=== PATIENT | male | born 1950 | race Caucasian/White ===

== ENCOUNTER 2024-01-15 10:46 | Outpatient (CLI) | payer MEDICARE, SELFPAY ==
--- NOTE | ~2024-01-15 | CT_ITS ---
Clinical Indication: Lung mass CT Scan of the Chest with Contrast: Technique: Contiguous sections were acquired throughout the chest after intravenous administration of 75 cc of Omnipaque 350. Dose reduction technique was used on this scan by utilizing automated exposu re control and iterative reconstruction technique. The dose-length product (DLP) was 390.05 mGy-cm. Findings: There is no evidence of any significant mediastinal, hilar or axillary lymphadenopathy. There is no f illing defect in the pulmonary arterial tree to suggest pulmonary embolus. There is no evidence of ao rtic dissection or aneurysm. There is no evidence of pleural or pericardial effusion. There is spiculated somewhat masslike lesion at the left lung apex with central calcification, measur ing up to approximately 3.5 cm in maximum diameter (axial image 19), morphology suggesting apical sca rring, though neoplastic lesion not definitively excluded without prior exams. There is minimal right apical scarring. There is mild to moderate emphysema in the upper lobes. There is extensive atelecta tic change of the right middle lobe. Images through the upper abdomen reveal no abnormalities. Impression: 3.5 cm somewhat masslike lesion left lung apex, felt to most likely represent prominent/exuberant lef t apical scarring, though neoplastic lesion is not definitively excluded. Consider PET/CT or tissue s ampling for further evaluation, versus follow-up exam. Comparison with any prior CTs would be very us eful to assess for chronicity of this lesion. Extensive right middle lobe atelectasis. Mild to moderate emphysema. Reviewed, dictated and finalized at [facility]. PT DEVELOPER Impression: 3.5 cm somewhat masslike lesion left lung apex, felt to most likely represent p rominent/exuberant left apical scarring, though neoplastic lesion is not defini tively excluded. Consider PET/CT or tissue sampling for further evaluation, timothy aguila follow-up exam. Comparison with any prior CTs would be very useful to asses s for chronicity of this lesion. Extensive right middle lobe atelectasis. Mild to moderate emphysema.
[2024-01-15 11:10] LABS: Estimated Glomerular Filt Rate > 60
== END 2024-01-15 10:47 | disposition home or self-care (01) ==
PROVIDERS: PCP Family Medicine; Visit Provider Internal Medicine Hematology & Oncology
DX: R91.8 Other nonspecific abnormal finding of lung field (principal); J98.11 Atelectasis; J43.9 Emphysema, unspecified
CPT/HCPCS: 71260; Q9967

== ENCOUNTER 2024-04-22 09:49 | Outpatient (CLI) | payer MEDICARE, SELFPAY ==
--- NOTE | ~2024-04-22 | CT_ITS ---
Clinical Indication: Lung mass CT Scan of the Chest with Contrast: Technique: Contiguous sections were acquired throughout the chest after intravenous administration of 75 cc of Omnipaque 350. Dose reduction technique was used on this scan by utilizing automated exposu re control and iterative reconstruction technique. The dose-length product (DLP) was 246.52 mGy-cm. COMPARISON: 01/15/2024 Findings: There is no evidence of any significant mediastinal, hilar or axillary lymphadenopathy. There is no f illing defect in the pulmonary arterial tree to suggest pulmonary embolus. There is no evidence of ao rtic dissection or aneurysm. There is no evidence of pleural or pericardial effusion. Stable left apical scarring. There is complete right middle lobe atelectasis, similar to prior exam. Mild emphysema. Images through the upper abdomen reveal no abnormalities. Impression: Complete right middle lobe atelectasis, unchanged. Stable probable left apical scarring. Mild emphysema. Reviewed, dictated and finalized at [facility]. Impression: Complete right middle lobe atelectasis, unchanged. Stable probable left apical scarring. Mild emphysema.
[2024-04-22 10:11] LABS: Estimated Glomerular Filt Rate > 60
--- OUTSIDE RECORDS SUMMARY | 2024-04-22 11:01 | XMS_ITS | Clinical Summary ---
Author Organization [facility] Address [address] [place] [address] Care Team Providers Care Ve Teacher Name Role Phone Gisel Dumont MD Primary Care Provider Allergies No known active allergies Medications aspirin (ECOTRIN EC) 81 mg Tablet, Delayed Release (E.C.) Take 81 mg by mouth daily. Active diclofenac sodium (VOLTAREN) 75 mg Tablet, Delayed Release (E.C.) Take 75 mg by mouth 2 times daily. Active tamsulosin (FLOMAX) 0.4 mg capsule Take 0.4 mg by mouth daily at bedtime. Active montelukast (SINGULAIR) 10 mg tablet Take 10 mg by mouth daily. Active pravastatin (PRAVACHOL) 40 mg tablet Take 40 mg by mouth daily with supper. Active escitalopram oxalate (LEXAPRO) 10 mg tablet Take 10 mg by mouth daily. Active fluticasone-ume clidinium-vilan terol (Trelegy Ellipta) 200-62.5-25 mcg Disk with Device Take 1 Puff by inhalation daily. Active lisinopriL (PRINIVIL) 40 mg tablet Take 40 mg by mouth daily. Active tadalafiL (CIALIS) 20 mg tablet Take 20 mg by mouth 1 time daily as needed for Erectile Dysfunction. Active umeclidinium-vi lanteroL (Anoro Ellipta) 62.5-25 mcg/actuation Disk with Device Take by inhalation. Active cefdinir (OMNICEF) 300 mg capsule Take 1 Capsule (300 mg) by mouth every 12 hours. 14 Capsule Active Active Problems Problem Noted Date Diagnosed Date Lung nodule 10/01/2023 Hilar lymphadenopathy 10/01/2023 Encounters Date Type Department Care Team Description 04/21/2024 External Device Data ST[facility] ABSTRACTION Provider, Abstract 04/08/2024 External Device Data [facility] ABSTRACTION Provider, Abstract 03/05/2024 External Device Data [facility] ABSTRACTION Provider, Abstract 03/04/2024 External Device Data [facility] ABSTRACTION Provider, Abstract 02/27/2024 External Device Data [facility] ABSTRACTION Provider, Abstract 01/23/2024 2:45 PM SUPERVISOR NURSE Office Visit [facility] Oncology and Hematology - [place] [address] [place] [id number] Hever Denson MD Lung mass (Primary Dx) from Last 3 Months Family History Medical History Relation Name Comments Colon Cancer Brother 1 Heart Disease Brother 2 Heart Disease Father No Known Problems Mother Relation Name Status Comments Brother 1 Brother 2 Father Mother Alive Social History Tobacco Use Types Packs/Day Years Used Date Smoking Tobacco: Every Day Cigarettes 2 50.6 Started: 09/18/1973 Tobacco Cessation:Ready to Q uit: Not Asked; Counseling Given: Not Answered Alcohol Use Standard Drinks/Week Comments Yes 6 (1 standard drink = 0.6 oz pur e alcohol) everyday Sex and Gender Information Value Date Recorded Sex Assigned at Not on file Legal Sex Male 9:06 AM CDT Gender Identity Not on file Sexual Orientation Not on file Last Filed Vital Signs Vital Sign Reading Time Taken Comments Blood Pressure 152/90 01/23/2024 2:54 PM SUPERVISOR NURSE Checked bp manually Pulse 90 01/23/2024 2:43 PM SUPERVISOR NURSE Temperature 36.8 C (98.2 F) 01/23/2024 2:43 PM SUPERVISOR NURSE Respiratory Rate 16 01/23/2024 2:4 3 PM SUPERVISOR NURSE Oxygen Saturation 95% 01/23/2024 2:4 3 PM SUPERVISOR NURSE Inhaled Oxygen Concentration - - Weight 83.1 kg (183 lb 3.2 oz) 01/23/2024 2:43 PM SUPERVISOR NURSE Height 170.2 cm (5' 7 ) 10/01/2023 1:25 PM CDT Body Mass Index 28.69 10/01/2023 1:25 PM CDT Plan of Treatment Upcoming Encounters Date Type Department Care Team (Late st Contact Info) Description 05/05/2024 2:00 PM CDT Office Visit [facility] Oncology [facility]ology - [place] [address] [facility] [address] [place] [address] Hever Denson MD [address] [facility] [address] [place] [address] Health Maintenance Due Date Last Done Comments DTAP/TDAP/TD VACCINES (1 - Tdap) 12/04/1970 PNEUMOCOCCAL VACCINE 50+ YEARS (1 of 2 - PCV) 12/04/18 71 COLORECTAL SCREENING 12/04/1996 Colorectal Cancer Screening 12/04/1996 FIT-DNA Q 3 years 12/04/1996 FIT/FOBT Q 1 year 12/04/1996 Flex Sig/CT Colonography Q 5 years 12/04/1996 ZOSTER VACCINE (1 of 2) 12/04/2001 INFLUENZA VACCINE (#1) 2023 Lung Cancer Screening 02/23/2024 02/22/2023 RSV VACCINE (60+ or ) (1 - 1-dose 75+ series) 12/04/2026 Abdominal Aortic Aneurysm (AAA) Screening Completed 02/22/2023 Insurance Care Teams Ve Teacher Relationship Specialty Start Date End Date Gisel Dumont MD [address] [facility] [place] [address] PCP - General Family Practice 09/19/23
--- OUTSIDE RECORDS SUMMARY | 2024-04-22 11:01 | XMS_ITS | Encounter Summary ---
Author Organization [facility] Address [address] [place] [id number] Care Team Providers Care Bar Gauger And Lubricator Tender Name Role Phone Zander Knox MD Primary Care Provider [phone] Gisel Dumont MD Primary Care Provider Reason for Visit * Reason Comments Operative Report (SCAN) [facility] REPORT/PROCEDURE Encounter Details Date Type Department Care Team ([facility] Contact Info) Description 01/29/2018 Scan HEALTH INFO [facility] Scanned, Documents Operative Report (SCAN) ([facility] REPORT/PROCEDURE) Social History Tobacco Use Types Packs/Day Years Used Date Smoking Tobacco: Every Day Cigarettes 1.5 46 Smokeless Tobacco: Never Alcohol Use Standard Drinks/Week Comments No 0 (1 standard drink = 0.6 oz pur e alcohol) AUDIT-C Answer Date Recorded Frequency of Alcohol Consumption Never 01/15/2018 Average Number of Drinks Not on file 018 Frequency of Binge Drinking Not on file 05/2017 Sex and Gender Information Value Date Recorded Sex Assigned at Male 03/27/2024 1:31 PM PORTAL ADMINISTRATOR Legal Sex Male 7:51 AM CDT Gender Identity Not on file Sexual Orientation Straight 08/24/2023 1: 05 PM CDT documented as of this encounter Plan of Treatment Not on file documented as of this encounter Visit Diagnoses Not on filedocumented in this encounter Additional Health Concerns Infection Onset Date Last Indicated Resolved Time COVID-19 Rule Out 03/27/2024 03/27/2024 03/27/2024 2:25 PM PORTAL ADMINISTRATOR documented as of this encounter Care Teams Bar Gauger And Lubricator Tender Relationship Specialty Start Date End Date Zander Knox MD PCP - General EMERGENCY MEDICINE 01/15/18 10/13/20 Gisel Dumont MD [address] [place] [address] PCP - General FAMILY PRACTICE 11/03/20 documented as of this encounter
--- OUTSIDE RECORDS SUMMARY | 2024-04-22 11:01 | XMS_ITS | Encounter Summary ---
Author Organization [facility] Address [address] [place] [address] Care Team Providers Care Tooling Mechanic Name Role Phone Gisel Dumont MD Primary Care Provider Encounter Details Date Type Department Care Team (Late st Contact Info) Description 04/21/2024 External Device Data [facility] ABSTRACTION Provider, Abstract NO ADDRESS ON FILE Social History Tobacco Use Types Packs/Day Years Used Date Smoking Tobacco: Every Day Cigarettes 2 50.6 Started: 09/18/1973 Alcohol Use Standard Drinks/Week Comments Yes 6 (1 standard drink = 0.6 oz pur e alcohol) everyday Sex and Gender Information Value Date Recorded Sex Assigned at Not on file Legal Sex Male 9:06 AM CDT Gender Identity Not on file Sexual Orientation Not on file documented as of this encounter Plan of Treatment Upcoming Encounters Date Type Department Care Team (Late st Contact Info) Description 05/05/2024 2:00 PM CDT Office Visit [facility] Oncology and Hematology - [place] [address] [facility] [address] [place] [address] [place] [address] [place] [address] [address] [place] [address] documented as of this encounter Visit Diagnoses Not on filedocumented in this encounter Care Teams Tooling Mechanic Relationship Specialty Start Date End Date Gisel Dumont MD [address] [place] [id number] PCP - General Family Practice 09/19/23 documented as of this encounter
--- OUTSIDE RECORDS SUMMARY | 2024-04-22 11:01 | XMS_ITS | Clinical Summary ---
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 12/20/19 18 Active aspirin EC (ECOTRIN) 81 MG tablet Take 1 tablet (81 mg total) by mouth daily. Active multi vitamin/minera ls (THERA-M ENHANCED) tablet Take 1 tablet by mouth daily. Active oxybutynin XL (DITROPAN XL) 15 MG 24 hr tablet Take 1 tablet (15 mg total) by mouth daily. Active diclofenac EC (VOLTAREN) 75 MG tablet Take 1 tablet (75 mg total) by mouth 2 (two) times daily. Active montelukast (SINGULAIR) 10 MG tablet Take 1 tablet (10 mg total) by mouth nightly at bedtime. Active tamsulosin (FLOMAX) 0.4 MG Cap Take 1 capsule (0.4 mg total) by mouth nightly. Active melatonin 5 MG tablet Take 1 tablet (5 mg total) by mouth nightly as needed. Active busPIRone (BUSPAR) 10 MG tablet Take 1 tablet (10 mg total) by mouth 3 (three) times daily. 09/21/19 24 Active escitalopram (LEXAPRO) 10 MG tablet Take 1 tablet (10 mg total) by mouth daily. 09/17/19 24 Active pravastatin (PRAVACHOL) 40 MG tablet Take 1 tablet (40 mg total) by mouth nightly at bedtime. 09/04/19 24 Active azithromycin (ZITHROMAX) 500 mg tablet Take 1 tablet (500 mg total) by mouth daily. 1 tablet 04/01/19 25 Active chlorthalidone (HYGROTEN) 25 MG tablet Take 0.5 tablets (12.5 mg total) by mouth daily. 30 tablet 1 04/01/19 25 Active budesonide-for moterol (SYMBICORT) 160-4.5 MCG/ACT inhaler Inhale 2 puffs into the lungs 2 (two) times daily. 10.2 g 3 03/31/19 25 Active pravastatin 20 MG tablet nightly at bedtime. 10/25/19 18 025 Discontinued(Er ror) budesonide-for moterol 160-4.5 MCG/ACT inhaler Inhale 2 puffs into the lungs 2 (two) times daily. 025 Discontinued(Er ror) ANORO ELLIPTA 62.5-25 MCG/ACT inhaler 07/30/19 24 025 Discontinued(Er ror) cefdinir (OMNICEF) 300 MG Cap capsule Take 1 capsule (300 mg total) by mouth 2 (two) times daily for 1 day. 2 capsule 04/01/19 25 025 predniSONE (DELTASONE) 20 MG tablet Take 2 tablets (40 mg total) by mouth daily for 3 days, THEN 1 tablet (20 mg total) daily for 3 days, THEN 0.5 tablets (10 mg total) daily for 3 days. 11 tablet 03/31/19 25 025 Discontinued predniSONE (DELTASONE) 20 MG tablet Take 2 tablets (40 mg total) by mouth daily for 3 days, THEN 1 tablet (20 mg total) daily for 3 days, THEN 0.5 tablets (10 mg total) daily for 3 days. 11 tablet 04/01/19 25 025 Active Problems Problem Noted Date Diagnosed Date CAP (community acquired pneumonia) 03/27/2024 Hx of colonic polyp 09/07/2022 Overview (09/07/2022): Added automatically from request for surgery [id number] Family hx of colon cancer 09/07/2022 Overview (09/07/2022): Added automatically from request for surgery [id number] Screening for colon cancer 09/07/2022 Overview (09/07/2022): Added automatically from request for surgery [id number] Hyponatremia 10/16/2020 Encounters Date Type Department Care Team Description 03/27/2024 1:34 PM [facility] - 03/31/2024 12:37 PM [facility] Hospital Encounter [facility] [address] [place] [address] Rupert Smith MD Sahi, Yuliana Tobin MD Shortness Of Breath Discharge Disposition: Home or Self Care (Routine Discharge) 03/27/2024 Travel from Last 3 Months Family History Medical History Relation Comments Colon Cancer Brother Heart Disease Father Relation Status Comments Brother Father Social History Tobacco Use Types Packs/Day Years Used Date Smoking Tobacco: Every Day Cigarettes 2 46 Smokeless Tobacco: Never Alcohol Use Standard Drinks/Week Comments Yes 58.3 (1 standard drink = 0.6 oz pure alcohol) B1300 Health Literacy Answer Date Recor ded How often do you need to hav e someone help you when you read instructions, pamphlets, or other written material from your doctor or pharmacy? Rarely 03/27/2024 [facility] Utilities Answer Date Recorded In the past 12 months has e [employer], gas, oil, or water [employer] threatened to shut off services in your home? No 03/27/2024 Humiliation, Afraid, Rape, and Kick questionnair e Answer Date Recorded Within the last year, have y ou been afraid of your partner or ex-partner? No 03/27/2024 Within the last year, have y ou been humiliated or emotionally abused in other ways by your partner or ex-partner? No Within the last year, have y ou been kicked, hit, slapped, or otherwise physically hurt by your partner or ex-partner? No 03/27/2024 Within the last year, have y ou been raped or forced to have any kind of sexual activity by your partner or ex-partner? No 03/27/2024 Social Connection and Isolation Panel [NHANES] A nswer Date Recorded In a typical week, how many times do you talk on the phone with family, friends, or neighbors? Once a week 03/27/19 How often do you get togethe r with friends or relatives? Once a week 03/27/2024 How often do you attend chur ch or latter-day services? 1 to 4 times per year 03/27/2024 Do you belong to any clubs o r organizations such as jehovah's witness groups, unions, fraternal or athletic groups, or school groups? No 03/27/2024 How often do you attend meet ings of the clubs or organizations you belong to? 1 to 4 times per year 03/27/2024 Are you , , di vorced, , never , or living with a partner? Living with partner 03/27/2024 AUDIT-C Answer Date Recorded Q1: How often do you have a drink containing alcohol? 4 or more times a week 03/27/2024 Q2: How many drinks containi ng alcohol do you have on a typical day when you are drinking? 5 or 6 Q3: How often do you have si x or more drinks on one occasion? Daily or almost daily 03/27/2024 Overall Financial Resource Strain (CARDIA) Answe r Date Recorded How hard is it for you to pa y for the very basics like food, housing, medical care, and heating? Not hard at all 03/27/2024 [facility] Occupat ional Health - Occupational Stress Questionnaire Answer Date Recorded Do you feel stress - tense, restless, nervous, or anxious, or unable to sleep at night because your mind is troubled all the time - these days? Only a little 03/27/2024 Hunger Vital Sign Answer Date Recorded Within the past 12 months, y ou worried that your food would run out before you got the money to buy more. Never true 03/27/19 25 Within the past 12 months, t he food you bought just didn't last and you didn't have money to get more. Never true 03/27/2024 PRAPARE - Transportation Answer Date Re corded In the past 12 months, has l ack of transportation kept you from medical appointments or from getting medications? No 03/15 In the past 12 months, has l ack of transportation kept you from meetings, work, or from getting things needed for daily living? No 03/27/2024 Housing Stability Vital Sign Answer Edil e Recorded In the last 12 months, was t here a time when you were not able to pay the mortgage or rent on time? No 03/27/2024 In the past 12 months, how m any times have you moved where you were living? 0 03/27/2024 At any time in the past 12 m [facility], were you homeless or living in a correction (including now)? No 03/27/2024 Sex and Gender Information Value Date Recorded Sex Assigned at Male 03/27/2024 1:31 PM [facility] Legal Sex Male 7:51 AM CDT Gender Identity Not on file Sexual Orientation Straight 08/24/2023 1: 05 PM CDT Last Filed Vital Signs Vital Sign Reading Time Taken Comments Blood Pressure 160/80 03/31/2024 12:00 PM [facility] Pulse 78 03/31/2024 12:00 PM [facility] Temperature 36.3 C (97.3 F) 03/31/2024 12:00 PM [facility] Respiratory Rate 16 03/31/2024 12:0 0 PM [facility] Oxygen Saturation 95% 03/31/2024 12: 00 PM [facility] Inhaled Oxygen Concentration - - Weight 85.2 kg (187 lb 13.3 oz) 03/27/2024 1:37 PM [facility] Height 170.2 cm (5' 7 ) 03/27/2024 1:37 PM [facility] Body Mass Index 29.42 03/27/2024 1:37 PM [facility] Plan of Treatment Health Maintenance Due Date Last Done Comments DTaP, Tdap and Td Vaccines (1 - Tdap) 12/04/1970 RSV Immunization or 60+ Years (1 - Risk 60-74 years 1-dose series) 2011 Annual Medicare Wellness Visit 12/04/2016 Pneumococcal Vaccine: 65+ Years (2 of 2 - PPSV23 or PCV20) 02/22/2017 12/28/2016 COVID-19 Vaccine (3 - season) 2023 04/10/2020, 03/13/2020 Influenza Adult (#1) 2023 11/21/2019, 12/08/2014, 12/02/2013, Additional history exists PHQ-2 (Physician [place]) 02/13/2024 Lung Cancer Screening 08/20/2024 08/21/2023, 024 Colorectal Cancer Screening Colonoscopy (10 Years) 10/31/2032 10/31/2022 Zoster Vaccines Completed 11/07/2018, 08/26/2018 Hepatitis C Completed 10/18/2020, 03/07/2013 AAA SCREENING Completed 01/15/2024, 08/13, 08/21/2023, Additional history exists Meningococcal B Vaccine Aged Out No l onger eligible based on patient's age to complete this topic Meningococcal Vaccine Aged Out No yunior barb eligible based on patient's age to complete this topic RSV Immunizations Under 20 Months Aged Out No longer eligible based on patient's age to complete this topic Procedures Procedure Name Priority Date/Time Associated Diagnosis Comments POCT GLUCOSE - PIRES DOCKED DEVICE Routine 03/31/2024 11:37 AM [facility] POCT GLUCOSE - PIRES DOCKED DEVICE Routine 03/31/2024 8:47 AM [facility] CBC W/DIFF AUTOMATED STAT 03/31/2024 8:21 AM [facility] POCT GLUCOSE - PIRES DOCKED DEVICE Routine 03/30/2024 8:14 PM [facility] POCT GLUCOSE - PIRES DOCKED DEVICE Routine 03/30/2024 4:48 PM [facility] POCT GLUCOSE - PIRES DOCKED DEVICE Routine 03/30/2024 10:40 AM [facility] MAGNESIUM Routine 03/30/2024 4:15 AM [facility] BASIC METABOLIC PANEL Routine 03/30/2024 4:15 AM [facility] CBC W/DIFF AUTOMATED Routine 03/30/2024 4:15 AM [facility] MAGNESIUM Routine 03/29/2024 4:05 AM [facility] BASIC METABOLIC PANEL Routine 03/29/2024 4:05 AM [facility] CBC W/DIFF AUTOMATED Routine 03/29/2024 4:05 AM [facility] VANCOMYCIN Routine 03/28/2024 6:30 AM [facility] MAGNESIUM Routine 03/28/2024 6:30 AM [facility] BASIC METABOLIC PANEL Routine 03/28/2024 6:30 AM [facility] CBC W/DIFF AUTOMATED Routine 03/28/2024 6:30 AM [facility] MRSA SCREENING STAT 03/27/2024 4:30 PM [facility] C-REACTIVE PROTEIN STAT 03/27/2024 4: 00 PM [facility] CTA CHEST PE PROTOCOL STAT 03/27/2024 3:37 PM [facility] LACTIC ACID TIMED 03/27/2024 2:53 PM [facility] CULTURE, BACTERIA, BLOOD STAT 03/27/2024 2:52 PM [facility] XR CHEST PA+LAT STAT 03/27/2024 2:13 PM [facility] ECG 12-LEAD Routine 03/27/2024 1:43 PM [facility] CORONAVIRUS (COVID 19) STAT 1:43 PM [facility] RESP SYNCYTIAL VIRUS STAT 03/27/2024 1:43 PM [facility] INFLUENZA A & B STAT 03/27/2024 1:43 PM [facility] MAGNESIUM STAT 03/27/2024 1:43 PM [facility] PRO-BRAIN NATRIURETIC PEPTIDE STAT 03/27/2024 1:43 PM [facility] TROPONIN, QUANT STAT 03/27/2024 1:43 PM [facility] COMPREHENSIVE METABOLIC PANEL STAT 03/27/2024 1:43 PM [facility] D-DIMER, QUANTITATIVE STAT 03/27/2024 1:43 PM [facility] CBC W/DIFF AUTOMATED STAT 03/27/2024 1:43 PM [facility] PET EYE TO THIGH [id number] STAT 09/04/2023 3:30 PM CDT Screening for lung cancer Lesion of lung CT CHEST WO CONT LOW DOSE Routine 08/21/2023 9:[address] lung screening Pulmonary nodule Tobacco use HEPATITIS PANEL,ACUTE Routine 10/18/2020 6:01 AM CDT from Last 3 Months or Most Recently Relevant to Health Maintenance Results * (ABNORMAL) POCT glucose (03/31/2024 11:37 AM [facility]) Only the most recent of5 resultswithin the time period is included. Pathologist [facility] GLUCOSE POC 252(H) 70 - 99 MG/DL 03/31/2024 11:38 AM [facility] 03/31/2024 11:3 7 AM [facility] us Yuliana Deluca MD POCT ORDERABLES - DEVICE Dede bernabe Result [address] [place] [address], * (ABNORMAL) CBC W/DIFF AUTOMATED (03/31/2024 8:21 AM [facility]) Only the most recent of5 resultswithin the time period is included. [facility] WBC 17.16(H) 4.50 - 11.00 x10'3/uL 03/31/2024 8:26 AM [facility] RBC 4.96 4.50 - 5.90 x10'6/uL 03/31/2024 8:26 AM [facility] HGB 16.1 14.0 - 18.0 G/DL 03/31/2024 8:26 AM [facility] HCT 46.6 43.0 - 54.0 % 03/31/2024 8:26 AM [facility] MCV 94.0 80.0 - 100.0 FL 03/31/2024 8:26 AM [facility] MCH 32.5 26.0 - 34.0 PG 03/31/2024 8:26 AM [facility] MCHC 34.5 31.0 - 37.0 G/DL 03/31/2024 8:26 AM [facility] RDW 12.6 11.6 - 14.8 % 03/31/2024 8:26 AM [facility] PLT 377 130 - 400 x10'3/uL 03/31/2024 8:26 AM [facility] MPV 9.2 7.0 - 12.0 FL 03/31/2024 8:26 AM [facility] CBC COMMENT AUTOMATED RBC MORPHOLOGY AND PLATELET EVALUATION NORMAL 03/31/2024 8:26 AM [facility] NEUTROPHILS % 88.2(H) 40.0 - 74.0 % 03/31/2024 8:26 AM [facility] LYMPHOCYTES % 5.7(L) 14.0 - 46.0 % 03/31/2024 8:26 AM [facility] MONOCYTES % 3.7(L) 4.0 - 13.0 % 03/31/2024 8:26 AM [facility] EOSINOPHILS 0.2 0.0 - 7.0 % 03/31/2024 8:26 AM [facility] BASOPHILS 0.3 0.0 - 3.0 % 03/31/2024 8:26 AM [facility] IMMATURE GRANS % 1.9(H) 0.0 - 0.43 % 03/31/2024 8:26 AM [facility] NRBC % 0.0 % 03/31/2024 8:26 AM [facility] ABS. NEUTROPHILS TOTAL 15.13(H) 1.69 - 7.81 x10'3/uL 03/31/2024 8:26 AM [facility] ABS. LYMPHOCYTES 0.97 0.21 - 5.42 x10'3/uL 03/31/2024 8:26 AM [facility] ABS. MONOCYTES 0.64 0.04 - 1.37 x10'3/uL 03/31/2024 8:26 AM [facility] ABS. EOSINOPHILS 0.03 0.00 - 0.68 x10'3/uL 03/31/2024 8:26 AM [facility] ABS. BASOPHILS 0.06 0.00 - 0.08 x10'3/uL 03/31/2024 8:26 AM [facility] ABS. IMMATURE GRANULOCYTES 0.33(H) 0.00 - 0.06 x10'3/uL 03/31/2024 8:26 AM [facility] ABS. NUCLEATED RBC'S 0.00 0.00 - 0.01 x10'3/uL 03/31/2024 8:26 AM [facility] 03/31/2024 8:21 AM [facility] us Yuliana Deluca MD LABORATORY Final Result [address] [place] [address], * (ABNORMAL) BASIC METABOLIC PANEL (03/30/2024 4:15 AM [facility]) Only the most recent of3 resultswithin the time period is included. GLUCOSE 213(H) 70 - 99 MG/DL 03/30/2024 4:58 AM [facility] BUN 7 7 - 18 MG/DL 03/30/2024 4:58 AM [facility] CREATININE S/P/B 0.78 0.50 - 1.20 MG/DL 03/30/2024 4:58 AM [facility] SODIUM S/P/B 141 136 - 145 MMOL/L 03/30/2024 4:58 AM [facility] POTASSIUM S/P/B 3.8 3.5 - 5.1 MMOL/L 03/30/2024 4:58 AM [facility] CHLORIDE S/P/B 103 100 - 108 MMOL/L 03/30/2024 4:58 AM [facility] CO2 30.2 21.0 - 32.0 MMOL/L 03/30/2024 4:58 AM [facility] CALCIUM S/P/B 9.5 8.5 - 10.1 MG/DL 03/30/2024 4:58 AM [facility] ANION GAP 7.8 5.0 - 15.0 MMOL/L 03/30/2024 4:58 AM [facility] BUN CREATININE RATIO 9.0 6 - 26 03/30/2024 4:58 AM [facility] GFR ESTIMATE >90 >90 ML/MIN/1.7 3 M2 03/30/2024 4:58 AM [facility] Comment: NOTE: eGFR is not calculated for patients <18 years of age. This is an estimated GFR calculation using the new CKD EPI creatinine equation without race and so does not require a correction factor for race. This estimated GFR should not be used for calculating drug doses. 03/30/2024 4:15 AM [facility] us Yuliana Deluca MD LABORATORY Final Result [facility] [address] [place] [address], * MAGNESIUM (03/30/2024 4:15 AM [facility]) Only the most recent of4 resultswithin the time period is included. MAGNESIUM 2.4 1.8 - 2.4 MG/DL 03/30/2024 4:58 AM [facility] 03/30/2024 4:15 AM [facility] Yuliana Deluca MD LABORATORY Final Result [facility] [address] [place] [address], [place] * VANCOMYCIN RANDOM LEVEL (03/28/2024 6:30 AM [facility]) Pathologist [facility] VANCOMYCIN RANDOM 6.3 MCG/ML 03/28/2024 9:00 AM [facility] Comment:NO THERAPEUTIC RANGE AVAILABLE 03/28/2024 6:30 AM [facility] Yuliana Deluca MD LABORATORY Final Result Performing Organization Address [facility]/ZIP Co de Phone Number [facility] [address] [place] [address], [place] [phone] * MRSA SCREENING (03/27/2024 4:30 PM [facility]) [facility] SPEC DESCRIPTION NASAL 03/27/2024 4:30 PM [facility] SPECIAL REQUESTS NO SPECIAL REQUEST 03/27/2024 4:30 PM [facility] CULTURE RESULT NO METHICILLIN RESISTANT STAPHYLOCOCCUS AUREUS ISOLATED 03/28/2024 12:52 PM [facility] SPECIMEN FROM INTERNAL NOSE / Unknown 03/27/2024 4:30 PM [facility] 03/27/2024 4:34 PM [facility] Yuliana Deluca MD MICROBIOLOGY - GENERAL ORDERA BLES Final Result [facility] [address] [place] [address], [place] [phone] [facility] [address] [place] [address], [place] * (ABNORMAL) C-REACTIVE PROTEIN (03/27/2024 4:00 PM [facility]) C-REACTIVE PROTEIN 10.50(H) <0.29 mg/dL 03/28/2024 11:44 AM [facility] 03/27/2024 4:00 PM [facility] Rupert Smith MD LABORATORY Final Resul t [facility] [address] [place] [address], [place] [phone] * CTA CHEST PE PROTOCOL (03/27/2024 3:37 PM [facility]) Anatomical Region Laterality Modality Chest Computed Tomogra phy 03/27/2024 3:49 PM [facility] Impressions 03/27/2024 4:10 PM [facility] IMPRESSION: 1. No evidence of acute pulmonary embolism.. 2. Moderate peribronchial wall thickening may be due to moderate bronchitis versus reactive airway disease. 3. Bilateral small scattered patchy infiltrates. Please see above details. Scattered tree-in-bud type infiltrates also present. May be due to atypical infectious process. 4. Stable spiculated left lung apex mass. Had increased uptake on above-stated prior PET scan.. 5. Probable reactive mediastinal and hilar lymph nodes.. 6. Pulmonary nodules as above. Ordered By: RUPERT SMITH Interpreted By: Sindy Glover, 03/27/2024 3:49 PM Narrative 03/27/2024 4:10 PM [facility] [address] [place] [address] EXAMINATION: CTA CHEST WITH CONTRAST EXAM DATE/TIME: 03/27/2024 3:31 PM REASON FOR EXAM: rule out pe Shortness of breath and fever. COPD. Elevated d-dimer. COMPARISON: 08/21/2023 TECHNIQUE: Computed tomography angiography was performed of the chest after administration of intravenous contrast, 95 mL of Isovue-370, according to routine protocol. Additional 3-D reconstructions and postprocessing were performed independently by the attending radiologist and a separate dedicated 3-D workstation. A dose lowering technique was used for this procedure, which may include, but is not limited to, dose reduction technique, automated exposure control, iterative reconstruction, ALARA (As Low As Reasonably Achievable), or Image Gently techniques. FINDINGS: VASCULAR FINDINGS: Adequate opacification of the pulmonary arteries. No evidence of acute pulmonary embolism.. Atherosclerotic aorta without dilatation or dissection.. Moderate coronary artery calcifications. Please correlate with cardiac risk profile. NONVASCULAR FINDINGS: On lung windows, there is similar collapse of the right middle lobe with underlying scar. Trace left-sided pleural effusion. No pneumothorax. Moderate peribronchial wall mucosal thickening may be due to moderate bronchitis versus reactive airway disease. Small scattered patchy infiltrates. Most prominent in left lower lobe. Present to a lesser degree within the right lower lobe and left upper lobe. Scattered tree-in-bud type infiltrates also noted. May be due to atypical infectious process. These are new since prior exam. Stable appearance of less than 5 mm left lung base nodules on image 76, 77 and 89. On series 16. Triangular nodule versus scar in right lung base is stable on image 83.. Follow-up in 6 months. Stable spiculated left lung apex lesion. Similar measurement of 3.7 x 2.3 cm. This had increased uptake on prior PET scan of 09/04/2023. On soft tissue windows, no axillary or supraclavicular lymphadenopathy. On mediastinal windows, no evidence of pathologic hilar or mediastinal lymphadenopathy. Heart size normal. No pericardial effusion. Nonpathologic sized mediastinal lymph nodes. Matted hilar adenopathy, slightly greater on the left side. Most likely reactive from patient's inflammatory process. Limited evaluation of the upper abdomen demonstrates no acute abnormality. On bone windows, no suspicious skeletal lesion or acute compression fracture deformity. Procedure Note Juan Glover MD - 03/27/[address] [place] [address] EXAMINATION: CTA CHEST WITH CONTRAST EXAM DATE/TIME: 03/27/2024 3:31 PM REASON FOR EXAM: rule out pe Shortness of breath and fever. COPD. Elevated d-dimer. COMPARISON: 08/21/2023 TECHNIQUE: Computed tomography angiography was performed of the chestafter administration of intravenous contrast, 95 mL of Isovue-370,according to routine protocol. Additional 3-D reconstructions andpostprocessing were performed independently by the attending radiologistand a separate dedicated 3-D workstation. A dose lowering technique was used for this procedure, which may include,but is not limited to, dose reduction technique, automated exposurecontrol, iterative reconstruction, ALARA (As Low As ReasonablyAchievable), or Image Gently techniques. FINDINGS: VASCULAR FINDINGS: Adequate opacification of the pulmonary arteries. No evidence of acutepulmonary embolism.. Atherosclerotic aorta without dilatation or dissection.. Moderate coronary artery calcifications. Please correlate with cardiacrisk profile. NONVASCULAR FINDINGS: On lung windows, there is similar collapse of the right middle lobe withunderlying scar. Trace left-sided pleural effusion. No pneumothorax. Moderate peribronchial wall mucosal thickening may be due to moderatebronchitis versus reactive airway disease. Small scattered patchy infiltrates. Most prominent in left lower lobe.Present to a lesser degree within the right lower lobe and left upperlobe. Scattered tree-in-bud type infiltrates also noted. May be due toatypical infectious process. These are new since prior exam. Stable appearance of less than 5 mm left lung base nodules on image 76, 77and 89. On series 16. Triangular nodule versus scar in right lung base isstable on image 83.. Follow-up in 6 months. Stable spiculated left lung apex lesion. Similar measurement of 3.7 x 2.3cm. This had increased uptake on prior PET scan of 09/04/2023. On soft tissue windows, no axillary or supraclavicular lymphadenopathy. On mediastinal windows, no evidence of pathologic hilar or mediastinallymphadenopathy. Heart size normal. No pericardial effusion. Nonpathologicsized mediastinal lymph nodes. Matted hilar adenopathy, slightly greateron the left side. Most likely reactive from patient's inflammatoryprocess. Limited evaluation of the upper abdomen demonstrates no acuteabnormality. On bone windows, no suspicious skeletal lesion or acute compressionfracture deformity. IMPRESSION: 1. No evidence of acute pulmonary embolism.. 2. Moderate peribronchial wall thickening may be due to moderatebronchitis versus reactive airway disease. 3. Bilateral small scattered patchy infiltrates. Please see abovedetails. Scattered tree-in-bud type infiltrates also present. May be dueto atypical infectious process. 4. Stable spiculated left lung apex mass. Had increased uptake onabove-stated prior PET scan.. 5. Probable reactive mediastinal and hilar lymph nodes.. 6. Pulmonary nodules as above. Ordered By: RUPERT SMITH Interpreted By: Sindy Glover, 03/27/2024 3:49 PM Rupert Smith MD CT Final Resul t * (ABNORMAL) LACTIC ACID (03/27/2024 2:53 PM [facility]) [facility] LACTIC ACID VENOUS 2.1(HH) 0.5 - 2.0 MMOL/L 03/27/2024 4:09 PM [facility] Comment: AN ORDER FOR A REPEAT LACTIC ACID TEST IS REQUIRED WITHIN 6 HOURS OF DIAGNOSIS ON A PATIENT WITH SEVERE SEPSIS. CRITICAL VALUE CALLED RESULT [id number] 03/27/2024 2:53 PM [facility] Rupert Smith MD LABORATORY Final Resul t Performing Organization Address [facility]/ZIP Co de Phone Number [address] [place] [address], [place] * BLOOD CULTURE #1 (03/27/2024 2:52 PM [facility]) [facility] SPEC DESCRIPTION BLOOD 03/27/2024 2:52 PM [facility] SPECIAL REQUESTS NO SPECIAL REQUEST 03/27/2024 2:52 PM [facility] CULTURE RESULT NO GROWTH 5 DAYS 04/01/2024 6:29 AM [facility] BLOOD SPECIMEN OBTAINED FOR BLOOD CULTURE / Unknown 03/27/2024 2:52 PM [facility] 03/27/2024 3:27 PM [facility] Rupert Smith MD MICROBIOLOGY - GENERAL ORDHong [facility] Final Result [facility] [address] [place] [address], [place] [phone] [facility] [address] [facility] [place] [address], [place] * XR CHEST PA+LAT (03/27/2024 2:13 PM [facility]) Anatomical Region Laterality Modality Chest Computed Tomogra phy 03/27/2024 2:13 PM [facility] Impressions 03/27/2024 2:15 PM [facility] IMPRESSION: 1. Mild bilateral bronchial wall thickening, which can be seen with small airway infection/inflammation or reactive airway disease. 2. There are patchy left basilar airspace opacities which represent areas of atelectasis or pneumonia in appropriate setting. A follow-up chest radiograph in 8-12 weeks is recommended to ensure complete resolution. 3. No pneumothorax. Ordered By: RUPERT SMITH Interpreted By: Jackie Gann MD, 03/27/2024 2:13 PM Narrative 03/27/2024 2:15 PM [facility] [address] [place] [address] PROCEDURE: XR CHEST PA+LAT. 03/27/2024 1:58 PM. TECHNIQUE: 2 views (PA and Lateral) of the chest were performed. HISTORY: Cough. Shortness of breath. COMPARISON: Chest radiograph, 10/21/2020. FINDINGS: Support Devices: None. Cardiac Silhouette/Mediastinum/Radha: The cardiac, mediastinal, and hilar contours are within normal limits for age. Lungs/Pleural Spaces: Wall thickening. There are patchy left basilar airspace opacities. The pleural spaces are clear. Chest Wall/Diaphragm/Upper Abdomen: The thoracic musculoskeletal structures and the upper abdomen are unchanged in appearance. Procedure Note Jackie Gann MD - 03/27/[address] [place] [address] PROCEDURE: XR CHEST PA+LAT. 03/27/2024 1:58 PM. TECHNIQUE: 2 views (PA and Lateral) of the chest were performed. HISTORY: Cough. Shortness of breath. COMPARISON: Chest radiograph, 10/21/2020. FINDINGS: Support Devices: None. Cardiac Silhouette/Mediastinum/Radha: The cardiac, mediastinal, and hilarcontours are within normal limits for age. Lungs/Pleural Spaces: Wall thickening. There are patchy left basilarairspace opacities. The pleural spaces are clear. Chest Wall/Diaphragm/Upper Abdomen: The thoracic musculoskeletalstructures and the upper abdomen are unchanged in appearance. IMPRESSION: 1. Mild bilateral bronchial wall thickening, which can be seen with smallairway infection/inflammation or reactive airway disease. 2. There are patchy left basilar airspace opacities which represent areasof atelectasis or pneumonia in appropriate setting. A follow-up chestradiograph in 8-12 weeks is recommended to ensure complete resolution. 3. No pneumothorax. Ordered By: RUPERT SMITH Interpreted By: Jackie Gann MD, 03/27/2024 2:13 PM us Rupert Smith MD GENERAL IMAGING Final Resul t * ECG 12 lead (03/27/2024 1:43 PM [facility]) 03/27/2024 1:43 PM [facility] Narrative [facility] - 03/27/2024 2:34 PM [facility] HFG Test Date: 2024-03-27 Pat Name: JOSE DE JESUS CASIANO Department: 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 : 1950 Requested By: RUPERT SMITH Order Number: [id number] Reading MD: Tang Friend Measurements Intervals [place] Rate: 122 P: -1 IA: 148 QRS: 75 QRSD: 93 T: 66 QT: 323 QTc: 461 Interpretive Statements SINUS TACHYCARDIA MINIMAL ST DEPRESSION [0.025+ mV ST DEPRESSION] ABNORMAL RHYTHM ECG [facility] Procedure Note Tang Friend MD - 03/27/2024 HFG Test Date: 2024-03-27 Pat Name: JOSE DE JESUS CASIANO Department: 100 Room: Gender: Male Clearing Supervisor: MYKEL : 1950 Requested By: RUPERT SMITH Order Number: [id number] Reading MD: Tang Friend Measurements Intervals [place] Rate: 122 P: -1 IA: 148 QRS: 75 QRSD: 93 T: 66 QT: 323 QTc: 461 Interpretive Statements SINUS TACHYCARDIA MINIMAL ST DEPRESSION [0.025+ mV ST DEPRESSION] ABNORMAL RHYTHM ECG [facility] Rupert Smith MD ECG ORDERABLES Final Resul t Performing Organization Address City/[facility]/ZIP Co de Phone Number [address] [place] [address] * CORONAVIRUS (COVID 19) (03/27/2024 1:43 PM [facility]) CORONAVIRUS SARS COV 2 RNA NEGATIVE NEGATIVE 03/27/2024 2:24 PM [facility] Comment: NEGATIVE RESULTS DO NOT RULE OUT COVID 19 AND SHOULD NOT BE USED THE SOLE BASIS FOR TREATMENT OR PATIENT MANAGEMENT DECISIONS, INCLUDING INFECTION CONTROL DECISIONS. NEGATIVE RESULTS SHOULD BE CONSIDERED IN THE CONTEXT OF A PATIENT'S RECENT EXPOSURES, HISTORY AND THE PRESENCE OF CLINICAL SIGNS AND SYMPTOMS CONSISTENT WITH COVID 19. THE ID NOW COVID-19 2.0 TEST HAS BEEN AUTHORIZED BY THE FDA UNDER EAU FOR USE BY AUTHORIZED LABORATORIES. PERFORMED BY NUCLEIC ACID AMPLIFICATION FOR MOLECULAR QUALITATIVE DETECTION OF SARS-COV-2. SPECIMEN TYPE NASAL 03/27/2024 1:43 PM [facility] NASAL STRUCTURE / Unknown 03/27/2024 1:43 PM [facility] Rupert Smith MD MICROBIOLOGY - GENERAL ORDHong HOBSON Final Result Performing Organization Address [facility]/[place] [address], * (ABNORMAL) PRO-BRAIN NATRIURETIC PEPTIDE (03/27/2024 1:43 PM [facility]) PRO-BRAIN NATRIURETIC PEPTIDE 130(H) 0 - 125 PG/ML 03/27/2024 2:41 PM [facility] Comment: CUT POINTS ESTABLISHED BY [employer] ON NT PROBNP (ICON) STUDY (2006). AGE INDEPENDENT: <300 PG/ML HAS A 99% NEGATIVE PREDICTIVE VALUE FOR EXCLUDING ACUTE CHF <50 YEARS: >450 PG/ML IS CONSISTENT WITH ACUTE CHF 50-75 YEARS: >900 PG/ML IS CONSISTENT WITH ACUTE CHF >75 YEARS: >1800 PG/ML IS CONSISTENT WITH ACUTE CHF IN PATIENTS WITH RENAL INSUFFICIENCY (GFR <60), >1200 PG/ML YIELDS A DIAGNOSTIC SENSITIVITY AND SPECIFICITY OF 89% AND 72% FOR ACUTE CHF. 03/27/2024 1:43 PM [facility] Rupert Smith MD LABORATORY Final Resul t Performing Organization Address City/[facility]/ZIP Co de Phone Number [facility] [address] [place] [address], [place] * INFLUENZA A & B (03/27/2024 1:43 PM [facility]) SPECIMEN TYPE NASOPHARYNX 03/27/2024 1:43 PM [facility] INFLUENZA A NEGATIVE NEGATIVE 03/27/2024 2:52 PM [facility] INFLUENZA B NEGATIVE NEGATIVE 03/27/2024 2:52 PM [facility] NASAL NASOPHARYNGEAL SWAB / Unknown 03/27/2024 1:43 PM [facility] Rupert Smith MD MICROBIOLOGY - GENERAL ORDE RABLES Final Result [facility] [address] [place] [address] [place] [address], [place] * RESP SYNCYTIAL VIRUS (03/27/2024 1:43 PM [facility]) SPECIMEN TYPE NASOPHARYNGEAL SWAB 03/27/2024 1:43 PM [facility] RAPID RSV NEGATIVE NEGATIVE 03/27/2024 2:26 PM [facility] NASOPHARYNGEAL SWAB / Unknown 03/27/2024 1:43 PM [facility] Rupert Smith MD MICROBIOLOGY - GENERAL ORDHong HOBSON Final Result [facility] [address] [place] [address], * (ABNORMAL) COMPREHENSIVE METABOLIC PANEL (03/27/2024 1:43 PM [facility]) [facility] GLUCOSE 196(H) 70 - 99 MG/DL 03/27/2024 2:41 PM [facility] BUN 6(L) 7 - 18 MG/DL 03/27/2024 2:41 PM [facility] CREATININE S/P/B 0.99 0.50 - 1.20 MG/DL 03/27/2024 2:41 PM [facility] SODIUM S/P/B 142 136 - 145 MMOL/L 03/27/2024 2:41 PM [facility] POTASSIUM S/P/B 3.7 3.5 - 5.1 MMOL/L 03/27/2024 2:41 PM [facility] CHLORIDE S/P/B 100 100 - 108 MMOL/L 03/27/2024 2:41 PM [facility] CO2 30.2 21.0 - 32.0 MMOL/L 03/27/2024 2:41 PM [facility] CALCIUM S/P/B 8.9 8.5 - 10.1 MG/DL 03/27/2024 2:41 PM [facility] BILIRUBIN TOTAL S/P/B 0.8 0.2 - 1.2 MG/DL 03/27/2024 2:41 PM [facility] Comment: THIS ASSAY IS NOT RECOMMENDED FOR PATIENTS UNDERGOING TREATMENT WITH ELTROMBOPAG DUE TO THE POTENTIAL FOR FALSELY ELEVATED RESULTS. TOTAL PROTEIN S/P/B 7.7 6.4 - 8.2 G/DL 03/27/2024 2:41 PM [facility] ALBUMIN S/P/B 3.3(L) 3.4 - 5.0 G/DL 03/27/2024 2:41 PM [facility] AST 25 15 - 37 U/L 03/27/2024 2:41 PM [facility] ALT 29 16 - 60 U/L 03/27/2024 2:41 PM [facility] ALKALINE PHOSPHATASE S/P/B 81 50 - 136 U/L 03/27/2024 2:41 PM [facility] ANION GAP 11.8 5.0 - 15.0 MMOL/L 03/27/2024 2:41 PM [facility] BUN CREATININE RATIO 6.1 6 - 26 03/27/2024 2:41 PM [facility] A/G RATIO 0.8(L) 1.0 - 2.5 RATIO 03/27/2024 2:41 PM [facility] GFR ESTIMATE 81(L) >90 ML/MIN/1.7 3 M2 03/27/2024 2:41 PM [facility] Comment: NOTE: eGFR is not calculated for patients <18 years of age. This is an estimated GFR calculation using the new CKD EPI creatinine equation without race and so does not require a correction factor for race. This estimated GFR should not be used for calculating drug doses. 03/27/2024 1:43 PM [facility] us Rupert Smith MD LABORATORY Final Resul t [facility] [address] [place] [address], * (ABNORMAL) D-DIMER, QUANTITATIVE (03/27/2024 1:43 PM [facility]) D-DIMER 781(HH) 0 - 500 ng{FEU}/mL 03/27/2024 3:02 PM [facility] Comment: CRITICAL VALUE CALLED RESULT [id number] D-Dimer values less than or equal to 500 ng/mL FEU have a negative predictive value of >95% for exclusion of deep vein thrombosis and pulmonary embolism. In patients over 50 (who tend to have higher normal baseline D-Dimer values), recent studies suggest age-adjusted D-Dimer cutoff values (calculated as: age [years] x 10 ng/mL) result in equivalent outcomes and no additional false negative findings. 03/27/2024 1:43 PM [facility] us Rupert Smith MD LABORATORY Final Resul t Performing Organization Address [facility] Co de Phone Number [facility] [address] [place] [address], [place] * TROPONIN, QUANT (03/27/2024 1:43 PM [facility]) TROPONIN I HIGH SENSITIVITY 9 0 - 54 ng/L 03/27/2024 2:41 PM [facility] Comment: HIGH DOSES OF BIOTIN, TROPONIN-SPECIFIC AUTOANTIBODIES, AND ANTIBODY THERAPY CONTAINING HAMA MAY INTERFERE WITH THIS TEST RESULT. CORRELATION TO CLINICAL HISTORY AND PRESENTATION RECOMMENDED. 03/27/2024 1:43 PM [facility] us Rupert Smith MD LABORATORY Final Resul t Performing Organization Address [facility] de Phone Number [facility] [address] [place] [address], [place] * PET EYE TO THIGH [id number] (09/04/2023 3:30 PM CDT) Anatomical Region Laterality Modality Body Positron Emissio n Tomography (PET) 09/05/2023 2:26 PM CDT Impressions 09/05/2023 3:24 PM CDT IMPRESSION: 1. The enlarging left apical spiculated nodule is markedly hypermetabolic and is concerning for a primary bronchogenic malignancy. 2. Very mildly increased FDG uptake in a left hilar lymph node is indeterminate. This may be reactive however, early catrachita metastatic disease is not excluded. 3. 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 Ordered By: GISEL FELTON Interpreted By: Angeli Boothe MD, 09/05/2023 2:26 PM Narrative 09/05/2023 3:24 PM CDT EXAMINATION: TUMOR FDG-PET/CT IMAGING DATE OF STUDY: 09/04/2023 SCANNER: [email or web address] RADIOPHARMACEUTICAL: 9.9 mCi F-18 Fluorodeoxyglucose (FDG) i.v. Injection site: Right hand HISTORY: Atypical pulmonary cyst with asymmetric wall thickening of the left lung apex seen on recent lung cancer screening CT which subsequently increased in size on follow-up CT of the chest. The study is requested for diagnosis. Initial treatment strategy. TECHNIQUE: The patient's fasting blood glucose level, measured by glucometer before injection of FDG, was 87 mg/dL. MD-Gastroview was not given orally. After intravenous administration of FDG, noncontrast CT images were obtained for attenuation correction and for fusion with emission PET images to allow for anatomical localization of PET findings. Emission PET images were then obtained. The study was interpreted on the [employer] workstation. The mean liver SUV (reported for director supplier quality purposes) is 3.5. The total scanned area was skull base to the proximal thighs. Images of the body were obtained starting 45 minutes after injection of tracer. COMPARISON: No prior FDG PET/CT. CT chest without contrast 08/21/2023, lung cancer screening CT 02/22/2023, CT chest 03/07/2013 FINDINGS: The enlarging left apical spiculated nodule is markedly hypermetabolic with max SUV 14.1. Measures approximately 3.5 x 2.3 cm and demonstrates some central calcification. The most intense FDG uptake is along the medial and superior aspect of this lesion. Very mildly increased FDG uptake in a left hilar lymph node with max SUV 3.7. There is a markedly hypermetabolic right posterior parotid nodule measuring approximately 1.4 cm with max SUV 16.7. Misregistration of the head and neck due to patient motion slightly limits evaluation. A prominent left axillary lymph node with mild FDG uptake which is misregistered but appears morphologically similar to the prior CT from 2013 and is likely reactive. Increased FDG uptake throughout the bowel is likely physiologic. Inflammatory FDG uptake associated with osteoarthritic degenerative change involving the shoulders. The humeral heads appear high riding, right greater than left, with degenerative change along the undersurface of the acromion. Joint bodies and a small effusion are seen on the right. Findings suggest chronic rotator cuff injury. Additional CT findings: Streak artifact from dental restorations. Atherosclerotic calcification of the carotid arteries. Atherosclerotic calcification of the thoracic aorta. Coronary artery calcifications. Segmental atelectasis in the right middle lobe. Mild pulmonary emphysema. Left renal cysts. Atherosclerotic calcification of the abdominal aorta. Colonic diverticulosis. Dystrophic calcifications in the prostate gland. Left inguinal hernia containing only fat. 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 Multilevel spondylosis. Procedure Note Angeli Boothe MD - 09/05/2023 EXAMINATION: TUMOR FDG-PET/CT IMAGING DATE OF STUDY: 09/04/2023 SCANNER: [facility] RADIOPHARMACEUTICAL: 9.9 mCi F-18 Fluorodeoxyglucose (FDG) i.v. Injectionsite: Right hand HISTORY: Atypical pulmonary cyst with asymmetric wall thickening of theleft lung apex seen on recent lung cancer screening CT which subsequentlyincreased in size on follow-up CT of the chest. The study is requestedfor diagnosis. Initial treatment strategy. TECHNIQUE: The patient's fasting blood glucose level, measured byglucometer before injection of FDG, was 87 mg/dL. MDShiraGastroview was notgiven orally. After intravenous administration of FDG, noncontrast CTimages were obtained for attenuation correction and for fusion withemission PET images to allow for anatomical localization of PET findings.Emission PET images were then obtained. The study was [facility]. The mean liver SUV (reported for quality controlpurposes) is 3.5. The total scanned area was skull base to the proximal thighs. Images ofthe body were obtained starting 45 minutes after injection of tracer. COMPARISON: No prior FDG PET/CT. CT chest without contrast 08/21/2023, lungcancer screening CT 02/22/2023, CT chest 03/07/2013 FINDINGS: The enlarging left apical spiculated nodule is markedly hypermetabolicwith max SUV 14.1. Measures approximately 3.5 x 2.3 cm and demonstratessome central calcification. The most intense FDG uptake is along themedial and superior aspect of this lesion. Very mildly increased FDG uptake in a left hilar lymph node with max SUV3.7. There is a markedly hypermetabolic right posterior parotid nodulemeasuring approximately 1.4 cm with max SUV 16.7. Misregistration of thehead and neck due to patient motion slightly limits evaluation. A prominent left axillary lymph node with mild FDG uptake which ismisregistered but appears morphologically similar to the prior CT [id number] and is likely reactive. Increased FDG uptake throughout the bowel is likely physiologic. Inflammatory FDG uptake associated with osteoarthritic degenerative changeinvolving the shoulders. The humeral heads appear high riding, rightgreater than left, with degenerative change along the undersurface of theacromion. Joint bodies and a small effusion are seen on the right.Findings suggest chronic rotator cuff injury. Additional CT findings: Streak artifact from dental restorations.Atherosclerotic calcification of the carotid arteries. Atheroscleroticcalcification of the thoracic aorta. Coronary artery calcifications.Segmental atelectasis in the right middle lobe. Mild pulmonary emphysema.Left renal cysts. Atherosclerotic calcification of the abdominal aorta.Colonic diverticulosis. Dystrophic calcifications in the prostate gland.Left inguinal hernia containing only fat. Osteoarthritic degenerativechange involving the hips and sacroiliac joints. Multilevel spondylosis. IMPRESSION: 1. The enlarging left apical spiculated nodule is markedly hypermetabolicand is concerning for a primary bronchogenic malignancy. 2. Very mildly increased FDG uptake in a left hilar lymph node isindeterminate. This may be reactive however, early catrachita metastaticdisease is not excluded. 3. Hypermetabolic right parotid nodule is statistically likely torepresent a primary parotid neoplasm such as a benign pleomorphic adenomaor Warthin's tumor. Ordered By: GISEL FELTON Interpreted By: Angeli Boothe MD, 09/05/2023 2:26 PM us Gisel Felton MD PET Final Result * CT CHEST WO CONT LOW DOSE (08/21/2023 9:40 AM CDT) Anatomical Region Laterality Modality Chest Computed Tomogra phy 08/21/2023 9:01 PM CDT Impressions 08/21/2023 9:18 PM CDT IMPRESSION: 1. Solid spiculated lesion in left lung apex as detailed above. Follow-up with PET scan. 2. No other pathologic pulmonary nodules. No pathologic lymphadenopathy. 3. Stable moderate bronchial wall thickening is detailed above. Stable collapse of the right middle lobe. May be due to mucous plugging versus endoluminal lesion. Referred By: GISEL FELTON Interpreted By: Juan Glover MD, 08/21/2023 9:01 PM Narrative 08/21/2023 9:18 PM CDT EXAMINATION: CT CHEST WITHOUT CONTRAST EXAM DATE/TIME: 08/21/2023 9:33 AM REASON FOR EXAM: Pulmonary nodule Follow-up. Current tobacco use. COMPARISON: 02/22/2023.. June 20, 2013 TECHNIQUE: Computed tomography was performed of the chest without intravenous contrast. A dose lowering technique was used for this procedure, which may include, but is not limited to, dose reduction technique, automated exposure control, iterative reconstruction, ALARA (As Low As Reasonably Achievable), or Image Gently techniques. FINDINGS: On lung windows, no patchy infiltrate, pneumothorax, or pleural effusion.. Stable collapse of the right middle lobe. May be due to mucous plugging versus endoluminal lesion. Previously identified atypical cystic lesion in left lung apex is now a solid lesion with spiculated margins. Measures 2.3 x 3.7 cm in the axial plane. Prior measurement of 1.9 x 2.8 cm.. On image 16 of series 8.. Suspicious for neoplastic process. Follow-up with PET scan. Stable benign pleural-based 5 mm nodule in superior right lower lobe on image 35. Stable benign 7 mm triangular scar in lateral right lung base on image 84. Stable benign 4 mm nodule in lateral lateral left lung base on image 94. Moderate bronchial wall thickening may be due to bronchitis versus reactive airway disease. Stable emphysematous change.. Stable mild tree in bud type opacities in right upper lobe. On soft tissue windows, no axillary or supraclavicular lymphadenopathy. On mediastinal windows, no evidence of hilar or mediastinal lymphadenopathy. Heart size normal. No pericardial effusion. Moderate coronary artery calcifications. Limited evaluation of the upper abdomen demonstrates no acute abnormality. 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 On bone windows, no suspicious skeletal lesion or acute compression fracture deformity. Procedure Note Juan Glover MD - 08/21/2023 EXAMINATION: CT CHEST WITHOUT CONTRAST EXAM DATE/TIME: 08/21/2023 9:33 AM REASON FOR EXAM: Pulmonary nodule Follow-up. Current tobacco use. COMPARISON: 02/22/2023.. June 20, 2013 TECHNIQUE: Computed tomography was performed of the chest withoutintravenous contrast. A dose lowering technique was used for this procedure, which may include,but is not limited to, dose reduction technique, automated exposurecontrol, iterative reconstruction, ALARA (As Low As ReasonablyAchievable), or Image Gently techniques. FINDINGS: On lung windows, no patchy infiltrate, pneumothorax, or pleural effusion..Stable collapse of the right middle lobe. May be due to mucous pluggingversus endoluminal lesion. Previously identified atypical cystic lesion in left lung apex is now asolid lesion with spiculated margins. Measures 2.3 x 3.7 cm in the axialplane. Prior measurement of 1.9 x 2.8 cm.. On image 16 of series 8..Suspicious for neoplastic process. Follow-up with PET scan. Stable benign pleural-based 5 mm nodule in superior right lower lobe onimage 35. Stable benign 7 mm triangular scar in lateral right lung baseon image 84. Stable benign 4 mm nodule in lateral lateral left lung baseon image 94. Moderate bronchial wall thickening may be due to bronchitis versusreactive airway disease. Stable emphysematous change.. Stable mild treein bud type opacities in right upper lobe. On soft tissue windows, no axillary or supraclavicular lymphadenopathy. On mediastinal windows, no evidence of hilar or mediastinallymphadenopathy. Heart size normal. No pericardial effusion. Moderatecoronary artery calcifications. 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 On bone windows, no suspicious skeletal lesion or acute compressionfracture deformity. IMPRESSION: 1. Solid spiculated lesion in left lung apex as detailed above.Follow-up with PET scan. 2. No other pathologic pulmonary nodules. No pathologiclymphadenopathy. 3. Stable moderate bronchial wall thickening is detailed above. Stablecollapse of the right middle lobe. May be due to mucous plugging versusendoluminal lesion. Referred By: GISEL FELTON Interpreted By: Juan Glover MD, 08/21/2023 9:01 PM us Gisel Felton MD CT Final Result * HEPATITIS PANEL,ACUTE (10/18/2020 6:01 AM CDT) HEPATITIS B SURFACE AG NON-REACT VANESA NON-REACT VANESA 10/18/2020 8:11 AM CDT [facility] Comment:HBsAg NOT DETECTED. HEP B CORE IGM NON-REACT VANESA NON-REACT VANESA 10/18/2020 8:11 AM CDT [facility] Comment: IgM ANTI HBc NOT DETECTED. DOES NOT EXCLUDE THE POSSIBILITY OF EXPOSURE TO OR INFECTION WITH HBV. NO RETEST REQUIRED. HIGH DOSES OF BIOTIN MAY INTERFERE WITH THIS TEST RESULT. CORRELATION TO CLINICAL HISTORY AND PRESENTATION RECOMMENDED. HAV IGM NON-REACT VANESA NON-REACT VANESA 10/18/2020 8:11 AM CDT [facility] Comment: IgM ANTI HAV NOT DETECTED. DOES NOT EXCLUDE THE POSSIBILITY OF EXPOSURE TO OR INFECTION WITH HAV. LEVELS OF IgM ANTI HAV MAY BE BELOW THE CUTOFF IN EARLY INFECTION. HEPATITIS C AB NON-REACT VANESA NON-REACT VANESA 10/18/2020 8:11 AM CDT [facility] Comment: ANTIBODIES TO HCV NOT DETECTED. DOES NOT EXCLUDE THE POSSIBILITY OF EXPOSURE TO HCV. 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 Advance Directives and Living Will 10/19/2020 12:00 AM ADVANCED DIRECTIVES Advance Directives and Living Will 01/29/2018 12:00 AM ADVANCED DIRECTIVES Advance Directives and Living Will 01/19/2015 12:00 AM ADVANCED DIRECTIVES Advance Directives and Living Will 06/20/2013 12:00 AM ADVANCED DIRECTIVES Advance Directives and Living Will 06/06/2013 12:00 AM ADVANCED DIRECTIVES Advance Directives and Living Will 04/07/2013 12:00 AM ADVANCED DIRECTIVES * Full Code (Latest Code Status on File) Date Activated Date Inactivated Comments 03/27/2024 5:31 PM 03/31/2024 2:47 PM * Full Code Date Activated Date Inactivated Comments 10/16/2020 12:12 PM 10/19/2020 8:59 PM Care Teams Shear Operator Automatic Relationship Specialty Start Date End Date Gisel Felton MD [address] [place] [address] PCP - General FAMILY PRACTICE 11/03/20
== END 2024-04-22 09:50 | disposition home or self-care (01) ==
PROVIDERS: PCP Family Medicine; Visit Provider Internal Medicine Hematology & Oncology
DX: J98.11 Atelectasis (principal); J43.9 Emphysema, unspecified; R91.8 Other nonspecific abnormal finding of lung field
CPT/HCPCS: 71260; Q9967

== ENCOUNTER 2024-05-05 13:32 | Outpatient (CLI) | payer MEDICARE, SELFPAY ==
[2024-05-05 13:43] LABS: Basophils Absolute Auto 0.1 K/mm3 (0.0-0.1); Basophils Percent Auto 0.7 % (0.2-1.2); Eosinophils Absolute Auto 0.1 K/mm3 (0-0.3); Eosinophils Percent Auto 0.8 % (0-4.4); Hematocrit 42.4 % (42.0-52.0); Hemoglobin 14.4 g/dL (14.0-18.0); Immature Granulocyte Absolute 0.13 K/mm3 (0.00-0.031); Immature Granulocyte Percent A 1.3 % (0-0.5); Lymphocytes Absolute Auto 2.18 K/mm3 (0.9-3.2); Lymphocytes Percent Auto 22.4 % (18.3-44.2); Mean Corpuscular Hemoglobin 32.6 pg (26-34); Mean Corpuscular Volume 95.9 fl (80-100); Mean Platelet Volume 8.6 fl (7.4-10.4); Monocytes Absolute Auto 0.6 K/mm3 (0.1-0.6); Monocytes Percent Auto 6.2 % (2.6-8.5); Neutrophils Absolute Auto 6.7 K/mm3 (1.3-6.7); Neutrophils Percent Auto 68.6 % (45.5-73.1); Platelet Count Result 243 k/mm3 (150-375); Red Blood Count 4.42 M/mm3 (4.6-6.20); Red Cell Distribution Width 14.3 % (11.5-14.5); White Blood Count 9.7 K/mm3 (4.5-10.0)
[2024-05-05 13:47] LABS: Blood Urea Nitrogen 11 mg/dL (8-26); Carbon Dioxide 29 mmol/L (22-30); Chloride 94 mmol/L (98-109); Estimated Glomerular Filt Rate > 60; Glucose 172 mg/dL (70-105); Ionized Calcium (POC) 1.18 mmol/L (1.11-1.31); Potassium 3.3 mmol/L (3.5-4.9); Sodium 138 mmol/L (138-146)
--- OUTSIDE RECORDS SUMMARY | 2024-05-05 15:30 | XMS_ITS | Encounter Summary ---
Author Organization [facility] Address [address] [place] [address] Care Team Providers Care Sorter Packer Name Role Phone Gisel Dumont MD Primary Care Provider Reason for Referral * CT Scan (Routine) - Closed Specialty Diagnoses / Procedures Referred By Luis martinez Referred To Contact Diagnoses Lung mass Procedures CT CHEST W CONTRAST Hever Denson MD [address] [place] [phone] Phone: tel: fax: [place] [phone] Referral ID Status Reason Start Date Expiration Date V isits Requested Visits Authorized [id number] Closed [facility] CTS 05/05/2024 06/05/2025 1 1 Encounter Details Date Type Department Care Team (Late st Contact Info) Description 05/05/2024 2:00 PM CDT Office Visit [facility] Oncology and Hematology [facility] [address] [place] [address] [address] [place] [address] Hever Denson MD [address] [place] [address] Lung mass (Primary Dx) Social History Tobacco Use Types Packs/Day Years [...] on file documented as of this encounter Last Filed Vital Signs Vital Sign Reading Time Taken Comments Blood Pressure 111/64 05/05/2024 1:49 PM CDT Pulse 108 05/05/2024 1:49 PM CDT Temperature 37 C (98.6 F) 05/05/2024 1:49 PM CDT Respiratory Rate 16 05/05/2024 1:49 PM CDT Oxygen Saturation 91% 05/05/2024 1:49 PM CDT Inhaled Oxygen Concentration - - Weight 78.6 kg (173 lb 3.2 oz) 05/05/2024 1:49 P M CDT Height - - Body Mass Index 27.13 10/01/2023 1:25 PM CDT documented in this encounter Plan of Treatment Upcoming Encounters Date Type Department Care Team (Late st Contact Info) Description 11/10/2024 10:00 AM CDT Office Visit [facility] Oncology and Hematology - [place] [address] [place] [address] [facility] [address] [place] [phone] Hever Denson MD [address] [facility] [address] [place] [address] Scheduled Orders Name Type Priority Associated Diagnoses Orde r Schedule CT CHEST W CONTRAST Imaging Routine Lung mass Expected: 11/05/2024, Expires: 05/05/2025 documented as of this encounter Visit Diagnoses Diagnosis Lung mass- Primary Swelling, mass, or lump in chest documented in this encounter Care Teams Sorter Packer Relationship Specialty Start Date End Date Gisel Dumont MD [address] [facility] [place] [id number] PCP - General Family Practice 09/19/23 documented as of this encounter
--- OUTSIDE RECORDS SUMMARY | 2024-05-05 15:30 | XMS_ITS | Clinical Summary ---
Author Organization [facility] Address [address] [place] [address] Care Team Providers Care Infrastructure Consultant Name Role Phone Gisel Felton MD Primary Care Provider Allergies No known active allergies Medications lisinopril 40 MG tablet Take 1 tablet (40 mg total) by mouth daily. 12/19/2017 Active aspirin EC (ECOTRIN) 81 MG tablet Take 1 tablet (81 mg total) by mouth daily. Active multi vitamin/mineral s (THERA-M ENHANCED) tablet Take 1 tablet by [...] total) by mouth 3 (three) times daily. 09/21/2023 Active escitalopram (LEXAPRO) 10 MG tablet Take 1 tablet (10 mg total) by mouth daily. 09/17/2023 Active pravastatin (PRAVACHOL) 40 MG tablet Take 1 tablet (40 mg total) by mouth nightly at bedtime. 09/04/2023 Active azithromycin (ZITHROMAX) 500 mg tablet Take 1 tablet (500 mg total) by mouth daily. 1 tablet 04/01/2024 Active chlorthalidone (HYGROTEN) 25 MG tablet Take 0.5 tablets (12.5 mg total) by mouth daily. 30 tablet 1 04/01/2024 Active budesonide-form oterol (SYMBICORT) 160-4.5 MCG/ACT inhaler Inhale 2 puffs into the lungs 2 (two) times daily. 10.2 g 3 03/31/2024 Active predniSONE (DELTASONE) 20 MG tablet Take 2 tablets (40 mg total) by mouth daily for 3 days, THEN 1 tablet (20 mg total) daily for 3 days, THEN 0.5 tablets (10 mg total) daily for 3 days. 11 tablet 04/01/2024 04/10/19 25 Active Problems Problem Noted Date Diagnosed Date CAP (community acquired pneumonia) 03/27/2024 Hx of colonic polyp 09/07/2022 Overview (09/07/2022): Added automatically from request for surgery [id number] Family hx of colon cancer 09/07/2022 Overview (09/07/2022): Added automatically from request for surgery [id number] Screening for colon cancer 09/07/2022 Overview (09/07/2022): Added automatically from request for surgery [id number] Hyponatremia 10/16/2020 Encounters Date Type Department Care Team Description 03/27/2024 1:34 PM [employer] MAINFRAME DEVELOPER - 03/31/2024 12:37 PM [employer] MAINFRAME DEVELOPER Hospital Encounter [facility] Medical/Surgical [address] [place] [address] [place] [address] Rupert Smith MD Yosi, Yuliana Tobin MD Shortness Of Breath Discharge [...] from your doctor or pharmacy? Rarely 03/27/2024 [facility] Utilities Answer Date Recorded In the past 12 months has th e electric, gas, oil, or water company threatened to shut off services in your [...] 03/27/2024 How often do you attend chur or shinto services? 1 to 4 times per year 03/27/2024 Do you belong to any clubs o r organizations such as restorationist groups, unions, fraternal or athletic groups, or [...] and heating? Not hard at all 03/27/2024 [facility] [place] of Occupat ional Health - Occupational Stress [...] time in the past 12 m [facility], were you homeless or living in a fdc (including now)? No 03/27/2024 Sex and Gender Information Value Date Recorded Sex Assigned at Male 03/27/2024 1:31 PM IBM MAINFRAME DEVELOPER Legal Sex Male 7:51 AM CDT Gender Identity Not on file Sexual Orientation Straight 08/24/2023 1: 05 PM CDT Last Filed Vital Signs Vital Sign Reading Time Taken Comments Blood Pressure 160/80 03/31/2024 12:00 PM [employer] MAINFRAME DEVELOPER Pulse 78 03/31/2024 12:00 PM [employer] MAINFRAME DEVELOPER Temperature 36.3 C (97.3 F) 03/31/2024 12:00 PM [employer] MAINFRAME DEVELOPER Respiratory Rate 16 03/31/2024 12:0 0 PM [employer] MAINFRAME DEVELOPER Oxygen Saturation 95% 03/31/2024 12: 00 PM [employer] MAINFRAME DEVELOPER Inhaled Oxygen Concentration - - Weight 85.2 kg (187 lb 13.3 oz) 03/27/2024 1:37 PM IBM MAINFRAME DEVELOPER Height 170.2 cm (5' 7 ) 03/27/2024 1:37 PM [employer] MAINFRAME DEVELOPER Body Mass Index 29.42 03/27/2024 1:37 PM [employer] MAINFRAME DEVELOPER Plan of Treatment Health Maintenance Due Date Last Done Comments DTaP, Tdap and Td Vaccines (1 - Tdap) 12/04/1970 RSV Immunization or 60+ Years (1 - Risk 60-74 years 1-dose series) 2011 Annual Medicare Wellness Visit 12/04/2016 Pneumococcal Vaccine: 65+ Years (2 of 2 - PPSV23 or PCV20) 02/22/2017 12/28/2016 COVID-19 Vaccine ( - season) 2023 04/10/2020, 03/13/2020 Influenza Adult (#1) 2023 11/21/2019, 12/08/2014, 12/02/2013, Additional history exists PHQ-2 (Physician Hoh) 02/13/2024 Lung Cancer Screening 08/20/2024 08/21/2023, 024 [...] PIRES DOCKED DEVICE Routine 03/31/2024 11:37 AM IBM MAINFRAME DEVELOPER POCT GLUCOSE - PIRES DOCKED DEVICE Routine 03/31/2024 8:47 AM IBM MAINFRAME DEVELOPER CBC W/DIFF AUTOMATED STAT 03/31/2024 8:21 AM IBM MAINFRAME DEVELOPER POCT GLUCOSE - PIRES DOCKED DEVICE Routine 03/30/2024 8:14 PM IBM MAINFRAME DEVELOPER POCT GLUCOSE - PIRES DOCKED DEVICE Routine 03/30/2024 4:48 PM IBM MAINFRAME DEVELOPER POCT GLUCOSE - PIRES DOCKED DEVICE Routine 03/30/2024 10:40 AM IBM MAINFRAME DEVELOPER MAGNESIUM Routine 03/30/2024 4:15 AM IBM MAINFRAME DEVELOPER BASIC METABOLIC PANEL Routine 03/30/2024 4:15 AM IBM MAINFRAME DEVELOPER CBC W/DIFF AUTOMATED Routine 03/30/2024 4:15 AM IBM MAINFRAME DEVELOPER MAGNESIUM Routine 03/29/2024 4:05 AM IBM MAINFRAME DEVELOPER BASIC METABOLIC PANEL Routine 03/29/2024 4:05 AM IBM MAINFRAME DEVELOPER CBC W/DIFF AUTOMATED Routine 03/29/2024 4:05 AM IBM MAINFRAME DEVELOPER VANCOMYCIN Routine 03/28/2024 6:30 AM IBM MAINFRAME DEVELOPER MAGNESIUM Routine 03/28/2024 6:30 AM IBM MAINFRAME DEVELOPER BASIC METABOLIC PANEL Routine 03/28/2024 6:30 AM IBM MAINFRAME DEVELOPER CBC W/DIFF AUTOMATED Routine 03/28/2024 6:30 AM IBM MAINFRAME DEVELOPER MRSA SCREENING STAT 03/27/2024 4:30 PM IBM MAINFRAME DEVELOPER C-REACTIVE PROTEIN STAT 03/27/2024 4: 00 PM IBM MAINFRAME DEVELOPER CTA CHEST PE PROTOCOL STAT 03/27/2024 3:37 PM IBM MAINFRAME DEVELOPER LACTIC ACID TIMED 03/27/2024 2:53 PM IBM MAINFRAME DEVELOPER CULTURE, BACTERIA, BLOOD STAT 03/27/2024 2:52 PM IBM MAINFRAME DEVELOPER XR CHEST PA+LAT STAT 03/27/2024 2:13 PM IBM MAINFRAME DEVELOPER ECG 12-LEAD Routine 03/27/2024 1:43 PM IBM MAINFRAME DEVELOPER CORONAVIRUS (COVID 19) STAT 1:43 PM IBM MAINFRAME DEVELOPER RESP SYNCYTIAL VIRUS STAT 03/27/2024 1:43 PM IBM MAINFRAME DEVELOPER INFLUENZA A & B STAT 03/27/2024 1:43 PM IBM MAINFRAME DEVELOPER MAGNESIUM STAT 03/27/2024 1:43 PM IBM MAINFRAME DEVELOPER PRO-BRAIN NATRIURETIC PEPTIDE STAT 03/27/2024 1:43 PM IBM MAINFRAME DEVELOPER TROPONIN, QUANT STAT 03/27/2024 1:43 PM IBM MAINFRAME DEVELOPER COMPREHENSIVE METABOLIC PANEL STAT 03/27/2024 1:43 PM IBM MAINFRAME DEVELOPER D-DIMER, QUANTITATIVE STAT 03/27/2024 1:43 PM IBM MAINFRAME DEVELOPER CBC W/DIFF AUTOMATED STAT 03/27/2024 1:43 PM IBM MAINFRAME DEVELOPER PET EYE TO THIGH [id number]-[id number] STAT 09/04/2023 3:30 PM CDT Screening for lung cancer Lesion of lung CT CHEST WO CONT LOW DOSE Routine 08/21/2023 9:[address] lung screening Pulmonary nodule Tobacco use HEPATITIS PANEL,ACUTE Routine 10/18/2020 6:01 AM CDT from Last 3 Months or Most Recently Relevant to Health Maintenance Results * (ABNORMAL) POCT glucose (03/31/2024 11:37 AM IBM MAINFRAME DEVELOPER) Only the most recent of5 resultswithin the time period is included. GLUCOSE POC 252(H) 70 - 99 MG/DL 03/31/2024 11:38 AM IBM MAINFRAME DEVELOPER [facility] 03/31/2024 11:3 7 AM IBM MAINFRAME DEVELOPER us Yuliana Deluca MD POCT ORDERABLES - DEVICE Dede l Result [facility] [address] [place] [address], [place] * (ABNORMAL) CBC W/DIFF AUTOMATED (03/31/2024 8:21 AM [employer] MAINFRAME DEVELOPER) Only the most recent of5 resultswithin the time period is included. WBC 17.16(H) 4.50 - 11.00 x10'3/uL 03/31/2024 8:26 AM [facility] RBC 4.96 4.50 - 5.90 x10'6/uL 03/31/2024 8:26 AM [facility] HGB 16.1 14.0 - 18.0 G/DL 03/31/2024 8:26 AM [facility] HCT 46.6 43.0 - 54.0 % 03/31/2024 8:26 AM [facility] MCV 94.0 80.0 - 100.0 FL 03/31/2024 8:26 AM [facility] MCH 32.5 26.0 - 34.0 PG 03/31/2024 8:26 AM [facility] MCHC 34.5 31.0 - 37.0 G/DL 03/31/2024 8:26 AM [facility] RDW 12.6 11.6 - 14.8 % 03/31/2024 8:26 AM [facility] PLT 377 130 - 400 x10'3/uL 03/31/2024 8:26 AM [facility] MPV 9.2 7.0 - 12.0 FL 03/31/2024 8:26 AM [facility] CBC COMMENT AUTOMATED RBC MORPHOLOGY AND PLATELET EVALUATION NORMAL 03/31/2024 8:26 AM [facility] NEUTROPHILS % 88.2(H) 40.0 - 74.0 % 03/31/2024 8:26 AM [facility] LYMPHOCYTES % 5.7(L) 14.0 - 46.0 % 03/31/2024 8:26 AM [facility] MONOCYTES % 3.7(L) 4.0 - 13.0 % 03/31/2024 8:26 AM [facility] EOSINOPHILS 0.2 0.0 - 7.0 % 03/31/2024 8:26 AM [facility] BASOPHILS 0.3 0.0 - 3.0 % 03/31/2024 8:26 AM [facility] IMMATURE GRANS % 1.9(H) 0.0 - 0.43 % 03/31/2024 8:26 AM [facility] NRBC % 0.0 % 03/31/2024 8:26 AM [facility] ABS. NEUTROPHILS TOTAL 15.13(H) 1.69 - 7.81 x10'3/uL 03/31/2024 8:26 AM [facility] ABS. LYMPHOCYTES 0.97 0.21 - 5.42 x10'3/uL 03/31/2024 8:26 AM [facility] ABS. MONOCYTES 0.64 0.04 - 1.37 x10'3/uL 03/31/2024 8:26 AM [facility] ABS. EOSINOPHILS 0.03 0.00 - 0.68 x10'3/uL 03/31/2024 8:26 AM [facility] ABS. BASOPHILS 0.06 0.00 - 0.08 x10'3/uL 03/31/2024 8:26 AM [facility] ABS. IMMATURE GRANULOCYTES 0.33(H) 0.00 - 0.06 x10'3/uL 03/31/2024 8:26 AM [facility] ABS. NUCLEATED RBC'S 0.00 0.00 - 0.01 x10'3/uL 03/31/2024 8:26 AM [facility] 03/31/2024 8:21 AM IBM MAINFRAME DEVELOPER us Yuliana Deluca MD LABORATORY Final Result [facility] [address] [place] [address], * (ABNORMAL) BASIC METABOLIC PANEL (03/30/2024 4:15 AM IBM MAINFRAME DEVELOPER) Only the most recent of3 resultswithin the time period is included. GLUCOSE 213(H) 70 - 99 MG/DL 03/30/2024 4:58 AM [facility] BUN 7 7 - 18 MG/DL 03/30/2024 4:58 AM [facility] CREATININE S/P/B 0.78 0.50 - 1.20 MG/DL 03/30/2024 4:58 AM [facility] SODIUM S/P/B 141 136 - 145 MMOL/L 03/30/2024 4:58 AM [facility] POTASSIUM S/P/B 3.8 3.5 - 5.1 MMOL/L 03/30/2024 4:58 AM [facility] CHLORIDE S/P/B 103 100 - 108 MMOL/L 03/30/2024 4:58 AM [facility] CO2 30.2 21.0 - 32.0 MMOL/L 03/30/2024 4:58 AM [facility] CALCIUM S/P/B 9.5 8.5 - 10.1 MG/DL 03/30/2024 4:58 AM [facility] ANION GAP 7.8 5.0 - 15.0 MMOL/L 03/30/2024 4:58 AM [facility] BUN CREATININE RATIO 9.0 6 - 26 03/30/2024 4:58 AM IBM MAINFRAME DEVELOPER [facility] GFR ESTIMATE >90 >90 ML/MIN/1.7 3 M2 03/30/2024 4:58 AM IBM MAINFRAME DEVELOPER [facility] Comment: NOTE: eGFR is not calculated for patients <18 years of age. This is an estimated GFR calculation using the new CKD EPI creatinine equation without race and so does not require a correction factor for race. This estimated GFR should not be used for calculating drug doses. 03/30/2024 4:15 AM IBM MAINFRAME DEVELOPER us Yuliana Deluca MD LABORATORY Final Result [facility] [address] [place] [address], [place] * MAGNESIUM (03/30/2024 4:15 AM [employer] MAINFRAME DEVELOPER) Only the most recent of4 resultswithin the time period is included. MAGNESIUM 2.4 1.8 - 2.4 MG/DL 03/30/2024 4:58 AM IBM MAINFRAME DEVELOPER [facility] 03/30/2024 4:15 AM IBM MAINFRAME DEVELOPER us Yuliana Deluca MD LABORATORY Final Result Performing Organization Address City/[facility]/ZIP Co de Phone Number [facility] [address] [place] [address], [place] * VANCOMYCIN RANDOM LEVEL (03/28/2024 6:30 AM IBM MAINFRAME DEVELOPER) VANCOMYCIN RANDOM 6.3 MCG/ML 03/28/2024 9:00 AM IBM MAINFRAME DEVELOPER [facility] Comment:NO THERAPEUTIC RANGE AVAILABLE 03/28/2024 6:30 AM IBM MAINFRAME DEVELOPER us Yuliana Deluca MD LABORATORY Final Result Performing Organization Address City/[facility]/ZIP Co de Phone Number [facility] [address] [place] [address], * MRSA SCREENING (03/27/2024 4:30 PM IBM MAINFRAME DEVELOPER) SPEC DESCRIPTION NASAL 03/27/2024 4:30 PM IBM MAINFRAME DEVELOPER [facility] SPECIAL REQUESTS NO SPECIAL REQUEST 03/27/2024 4:30 PM IBM MAINFRAME DEVELOPER [facility] CULTURE RESULT NO METHICILLIN RESISTANT STAPHYLOCOCCUS AUREUS ISOLATED 03/28/2024 12:52 PM IBM MAINFRAME DEVELOPER [facility] SPECIMEN FROM INTERNAL NOSE / Unknown 03/27/2024 4:30 PM [employer] MAINFRAME DEVELOPER 03/27/2024 4:34 PM IBM MAINFRAME DEVELOPER Yuliana Deluca MD MICROBIOLOGY - GENERAL ORDERA BLE Final Result Performing Organization Address [facility] Co de Phone Number [facility] [address] [place] [address], [place] [phone] [facility] [address] [place] [address], * (ABNORMAL) C-REACTIVE PROTEIN (03/27/2024 4:00 PM IBM MAINFRAME DEVELOPER) C-REACTIVE PROTEIN 10.50(H) <0.29 mg/dL 03/28/2024 11:44 AM IBM MAINFRAME DEVELOPER [facility] 03/27/2024 4:00 PM IBM MAINFRAME DEVELOPER Rupert Smith MD LABORATORY Final Resul t [facility] [address] [place] [address], [place] [phone] * CTA CHEST PE PROTOCOL (03/27/2024 3:37 PM IBM MAINFRAME DEVELOPER) Anatomical Region Laterality Modality Chest Computed Tomogra phy 03/27/2024 3:49 PM IBM MAINFRAME DEVELOPER Impressions 03/27/2024 4:10 PM IBM MAINFRAME DEVELOPER IMPRESSION: 1. No evidence of acute pulmonary [...] 03/27/2024 3:49 PM Narrative 03/27/2024 4:10 PM IBM MAINFRAME DEVELOPER [address] [place] [address] EXAMINATION: CTA CHEST WITH CONTRAST EXAM DATE/TIME: [...] Procedure Note Juan Glover MD - 03/27/[address] [place] [address] EXAMINATION: CTA CHEST WITH CONTRAST EXAM DATE/TIME: [...] Interpreted By: Sindy Glover, 03/27/2024 3:49 PM us Rupert Smith MD CT Final Resul t * (ABNORMAL) LACTIC ACID (03/27/2024 2:53 PM IBM MAINFRAME DEVELOPER) LACTIC ACID VENOUS 2.1(HH) 0.5 - 2.0 MMOL/L 03/27/2024 4:09 PM IBM MAINFRAME DEVELOPER [facility] Comment: AN ORDER FOR A REPEAT LACTIC ACID TEST IS REQUIRED WITHIN 6 HOURS OF DIAGNOSIS ON A PATIENT WITH SEVERE SEPSIS. CRITICAL VALUE CALLED RESULT [id number] 03/27/2024 2:53 PM IBM MAINFRAME DEVELOPER Rupert Smith MD LABORATORY Final Resul t Performing Organization Address City/[facility]/ZIP Co de Phone Number [facility] [address] [place] [address], [place] * BLOOD CULTURE #1 (03/27/2024 2:52 PM IBM MAINFRAME DEVELOPER) SPEC DESCRIPTION BLOOD 03/27/2024 2:52 PM IBM MAINFRAME DEVELOPER [facility] SPECIAL REQUESTS NO SPECIAL REQUEST 03/27/2024 2:52 PM IBM MAINFRAME DEVELOPER [facility] CULTURE RESULT NO GROWTH 5 DAYS 04/01/2024 6:29 AM IBM MAINFRAME DEVELOPER [facility] BLOOD SPECIMEN OBTAINED FOR BLOOD CULTURE / Unknown 03/27/2024 2:52 PM IBM MAINFRAME DEVELOPER 03/27/2024 3:27 PM IBM MAINFRAME DEVELOPER Rupert Smith MD MICROBIOLOGY - [facility] Final Result Performing Organization Address [facility] Co de Phone Number [facility] [address] [place] [address], [facility] [address] [place] [address], [place] * XR CHEST PA+LAT (03/27/2024 2:13 PM IBM MAINFRAME DEVELOPER) Anatomical Region Laterality Modality Chest Computed Tomogra phy 03/27/2024 2:13 PM IBM MAINFRAME DEVELOPER Impressions 03/27/2024 2:15 PM IBM MAINFRAME DEVELOPER IMPRESSION: 1. Mild bilateral bronchial wall thickening, [...] 03/27/2024 2:13 PM Narrative 03/27/2024 2:15 PM IBM MAINFRAME DEVELOPER [address] [place] [address] PROCEDURE: XR CHEST PA+LAT. 03/27/2024 1:58 PM. [...] Procedure Note Jackie Gann MD - 03/27/[address] [place] [address] PROCEDURE: XR CHEST PA+LAT. 03/27/2024 1:58 PM. [...] * ECG 12 lead (03/27/2024 1:43 PM IBM MAINFRAME DEVELOPER) 03/27/2024 1:43 PM IBM MAINFRAME DEVELOPER Narrative [facility] - 03/27/2024 2:34 PM IBM MAINFRAME DEVELOPER [facility]G Test Date: 2024-03-27 Pat Name: JOSE DE JESUS CASIANO Department: 100 Room: Gender: Male Director News: MYKEL : 1950 Requested By: RUPERT SMITH Order Number: [id number] Reading MD: Tang Friend Measurements Intervals [place] Rate: 122 P: -1 TX: 148 QRS: 75 QRSD: 93 T: 66 QT: 323 QTc: 461 Interpretive Statements SINUS TACHYCARDIA MINIMAL ST DEPRESSION [0.025+ mV ST DEPRESSION] ABNORMAL RHYTHM ECG MAINFRAME DEVELOPER Procedure Note Tang Friend MD - 03/27/2024 [facility] Test Date: 2024-03-27 Pat Name: JOSE DE JESUS CASIANO Department: 100 Room: Gender: Male Director News: MYKEL : 1950 Requested By: RUPERT SMITH Order Number: [id number] Reading : Tang Friend Measurements Intervals [place] Rate: 122 P: -1 TX: 148 QRS: 75 QRSD: 93 T: 66 QT: 323 QTc: 461 Interpretive Statements SINUS TACHYCARDIA MINIMAL ST DEPRESSION [0.025+ mV ST DEPRESSION] ABNORMAL RHYTHM ECG MAINFRAME DEVELOPER us Rupert Smith MD ECG ORDERABLES Final Resul t [facility] [address] [place] [address] * CORONAVIRUS (COVID 19) (03/27/2024 1:43 PM IBM MAINFRAME DEVELOPER) Pathologist [facility] CORONAVIRUS SARS COV 2 RNA NEGATIVE NEGATIVE 03/27/2024 2:24 PM IBM MAINFRAME DEVELOPER [facility] Comment: NEGATIVE RESULTS DO NOT RULE OUT [...] SARS-COV-2. SPECIMEN TYPE NASAL 03/27/2024 1:43 PM IBM MAINFRAME DEVELOPER [facility] NASAL STRUCTURE / Unknown 03/27/2024 1:43 PM IBM MAINFRAME DEVELOPER us Rupert Smith MD MICROBIOLOGY - [facility] Final Result Performing Organization Address [facility]/ZIP Co de Phone Number [facility] [address] [place] [address] [place] [address], * (ABNORMAL) PRO-BRAIN NATRIURETIC PEPTIDE (03/27/2024 1:43 PM IBM MAINFRAME DEVELOPER) [facility] PRO-BRAIN NATRIURETIC PEPTIDE 130(H) 0 - 125 PG/ML 03/27/2024 2:41 PM IBM MAINFRAME DEVELOPER [facility] Comment: CUT POINTS ESTABLISHED BY [...] 72% FOR ACUTE CHF. 03/27/2024 1:43 PM IBM MAINFRAME DEVELOPER us Rupert Smith MD LABORATORY Final Resul t [facility] [address] [place] [address], [place] * INFLUENZA A & B (03/27/2024 1:43 PM IBM MAINFRAME DEVELOPER) SPECIMEN TYPE NASOPHARYNX 03/27/2024 1:43 PM IBM MAINFRAME DEVELOPER [facility] INFLUENZA A NEGATIVE NEGATIVE 03/27/2024 2:52 PM IBM MAINFRAME DEVELOPER [facility] INFLUENZA B NEGATIVE NEGATIVE 03/27/2024 2:52 PM IBM MAINFRAME DEVELOPER [facility] NASAL NASOPHARYNGEAL SWAB / Unknown 03/27/2024 1:43 PM IBM MAINFRAME DEVELOPER us Rupert Smith MD MICROBIOLOGY - GENERAL MIRIAM HOBSON Final Result Performing Organization Address [facility]/RUST de Phone Number [facility] [address] [place] [place] [address], [place] * RESP SYNCYTIAL VIRUS (03/27/2024 1:43 PM IBM MAINFRAME DEVELOPER) SPECIMEN TYPE NASOPHARYNGEAL SWAB 03/27/2024 1:43 PM IBM MAINFRAME DEVELOPER [facility] RAPID RSV NEGATIVE NEGATIVE 03/27/2024 2:26 PM IBM MAINFRAME DEVELOPER [facility] NASOPHARYNGEAL SWAB / Unknown 03/27/2024 1:43 PM IBM MAINFRAME DEVELOPER us Rupert Smith MD MICROBIOLOGY - GENERAL MIRIAM HOBSON Final Result Performing Organization Address [facility] Co de Phone Number [facility] [address] [place] [address], [place] * (ABNORMAL) COMPREHENSIVE METABOLIC PANEL (03/27/2024 1:43 PM IBM MAINFRAME DEVELOPER) GLUCOSE 196(H) 70 - 99 MG/DL 03/27/2024 2:41 PM IBM MAINFRAME DEVELOPER [facility] BUN 6(L) 7 - 18 MG/DL 03/27/2024 2:41 PM IBM MAINFRAME DEVELOPER [facility] CREATININE S/P/B 0.99 0.50 - 1.20 MG/DL 03/27/2024 2:41 PM [facility] SODIUM S/P/B 142 136 - 145 MMOL/L 03/27/2024 2:41 PM [facility] POTASSIUM S/P/B 3.7 3.5 - 5.1 MMOL/L 03/27/2024 2:41 PM [facility] CHLORIDE S/P/B 100 100 - 108 MMOL/L 03/27/2024 2:41 PM [facility] CO2 30.2 21.0 - 32.0 MMOL/L 03/27/2024 2:41 PM [facility] CALCIUM S/P/B 8.9 8.5 - 10.1 MG/DL 03/27/2024 2:41 PM [facility] BILIRUBIN TOTAL S/P/B 0.8 0.2 - 1.2 MG/DL 03/27/2024 2:41 PM [facility] Comment: THIS ASSAY IS NOT RECOMMENDED FOR PATIENTS UNDERGOING TREATMENT WITH ELTROMBOPAG DUE TO THE POTENTIAL FOR FALSELY ELEVATED RESULTS. TOTAL PROTEIN S/P/B 7.7 6.4 - 8.2 G/DL 03/27/2024 2:41 PM [facility] ALBUMIN S/P/B 3.3(L) 3.4 - 5.0 G/DL 03/27/2024 2:41 PM [facility] AST 25 15 - 37 U/L 03/27/2024 2:41 PM [facility] ALT 29 16 - 60 U/L 03/27/2024 2:41 PM [facility] ALKALINE PHOSPHATASE S/P/B 81 50 - 136 U/L 03/27/2024 2:41 PM [facility] ANION GAP 11.8 5.0 - 15.0 MMOL/L 03/27/2024 2:41 PM [facility] BUN CREATININE RATIO 6.1 6 - 26 03/27/2024 2:41 PM [facility] A/G RATIO 0.8(L) 1.0 - 2.5 RATIO 03/27/2024 2:41 PM IBM MAINFRAME DEVELOPER [facility] GFR ESTIMATE 81(L) >90 ML/MIN/1.7 3 M2 03/27/2024 2:41 PM IBM MAINFRAME DEVELOPER [facility] Comment: NOTE: eGFR is not calculated for patients <18 years of age. This is an estimated GFR calculation using the new CKD EPI creatinine equation without race and so does not require a correction factor for race. This estimated GFR should not be used for calculating drug doses. 03/27/2024 1:43 PM IBM MAINFRAME DEVELOPER Rupert Smith MD LABORATORY Final Resul t Performing Organization Address [facility]/RUST de Phone Number [facility] [address] [facility] [place] [address], [place] * (ABNORMAL) D-DIMER, QUANTITATIVE (03/27/2024 1:43 PM [employer] MAINFRAME DEVELOPER) [facility] D-DIMER 781(HH) 0 - 500 ng{FEU}/mL 03/27/2024 3:02 PM [employer] MAINFRAME DEVEL[employer] [facility] Comment: CRITICAL VALUE CALLED RESULT [id number] D-Dimer values less than or equal to [...] additional false negative findings. 03/27/2024 1:43 PM [employer] MAINFRAME DEVELOPER Rupert Smith MD LABORATORY Final Resul t Performing Organization Address [facility] Co de Phone Number [facility] [address] [facility] [place] [address], * TROPONIN, QUANT (03/27/2024 1:43 PM [employer] MAINFRAME DEVELOPER) Pathologist [facility] TROPONIN I HIGH SENSITIVITY 9 0 - 54 ng/L 03/27/2024 2:41 PM [employer] MAINFRAME DEVELOPER [facility] Comment: HIGH DOSES OF BIOTIN, TROPONIN-SPECIFIC AUTOANTIBODIES, AND ANTIBODY THERAPY CONTAINING HAMA MAY INTERFERE WITH THIS TEST RESULT. CORRELATION TO CLINICAL HISTORY AND PRESENTATION RECOMMENDED. 03/27/2024 1:43 PM [employer] MAINFRAME DEVELOPER Rupert Smith MD LABORATORY Final Resul t [facility] [address] [facility] [place] [address], [place] * PET EYE TO THIGH [id number] (09/04/2023 3:30 PM CDT) Anatomical Region Laterality [...] FDG-PET/CT IMAGING DATE OF STUDY: 09/04/2023 SCANNER: [employer] RADIOPHARMACEUTICAL: 9.9 mCi F-18 Fluorodeoxyglucose (FDG) i.v. [...] before injection of FDG, was 87 mg/dL. -Gastroview was not given orally. After intravenous administration of FDG, noncontrast CT images were obtained for attenuation correction and for fusion with emission PET images to allow for anatomical localization of PET findings. Emission PET images were then obtained. The study was interpreted on the [employer] workstation. The mean liver SUV (reported for quality assurance specialist purposes) is 3.5. The total scanned area [...] FDG-PET/CT IMAGING DATE OF STUDY: 09/04/2023 SCANNER: [facility] RADIOPHARMACEUTICAL: 9.9 mCi F-18 Fluorodeoxyglucose (FDG) [...] of FDG, was 87 mg/dL. MD-Gastroview was notgiven orally. After intravenous administration of FDG, noncontrast CTimages were obtained for attenuation correction and for fusion withemission PET images to allow for anatomical localization of PET findings.Emission PET images were then obtained. The study was interpreted on [employer] workstation. The mean liver SUV (reported for [...] appears morphologically similar to the prior CT [id number] and is likely reactive. Increased FDG uptake [...] By: Angeli Boothe MD, 09/05/2023 2:26 PM Gisel Felton MD PET Final Result * [...] VANESA NON-REACT VANESA 10/18/2020 8:11 AM CDT [facility] Comment:HBsAg NOT DETECTED. HEP B CORE IGM NON-REACT VANESA NON-REACT VANESA 10/18/2020 8:11 AM CDT [facility] Comment: IgM ANTI HBc NOT DETECTED. DOES NOT EXCLUDE THE POSSIBILITY OF EXPOSURE TO OR INFECTION WITH HBV. NO RETEST REQUIRED. HIGH DOSES OF BIOTIN MAY INTERFERE WITH THIS TEST RESULT. CORRELATION TO CLINICAL HISTORY AND PRESENTATION RECOMMENDED. HAV IGM NON-REACT VANESA NON-REACT VANESA 10/18/2020 8:11 AM CDT [facility] Comment: IgM ANTI HAV NOT DETECTED. DOES NOT EXCLUDE THE POSSIBILITY OF EXPOSURE TO OR INFECTION WITH HAV. LEVELS OF IgM ANTI HAV MAY BE BELOW THE CUTOFF IN EARLY INFECTION. HEPATITIS C AB NON-REACT VANESA NON-REACT VANESA 10/18/2020 8:11 AM CDT [facility] Comment: ANTIBODIES TO HCV NOT DETECTED. DOES NOT EXCLUDE THE POSSIBILITY OF EXPOSURE TO HCV. 10/18/2020 6:01 AM CDT us Jameson Vanegas MD LABORATORY Final Result Performing Organization Address City/State/[facility] Co de Phone Number [facility] [address] [place] [address], [phone] from Last 3 Months or Most Recently Relevant to Health Maintenance Insurance Advance Directives Documents on File Type Date Recorded Patient Integrity Director Expl anation Advance Directives and Living Will [...] 12:12 PM 10/19/2020 8:59 PM Care Teams Infrastructure Consultant Relationship Specialty Start Date End Date Gisel Felton MD [address] [place] [address] PCP - General FAMILY PRACTICE 11/03/20
--- OUTSIDE RECORDS SUMMARY | 2024-05-05 15:30 | XMS_ITS | Clinical Summary ---
Author Organization [facility] Heather Johnson Address [address] [place] [address] Care Team Providers Care Manager Adobe Name Role Phone Gisel Dumont MD Primary [...] Encounters Date Type Department Care Team Description 05/05/2024 2:00 PM CDT Office Visit [facility] Oncology and Hematology [facility] [address] [place] [address] Hever Denson MD Lung mass (Primary Dx) 04/30/2024 External Device Data STL ABSTRACTION Provider, Abstract 04/23/2024 Orders Only [facility] Oncology and Hematology [facility] [address] [place] [address] Hever Denson MD 04/21/2024 External Device Data STL ABSTRACTION Provider, Abstract 04/08/2024 External Device Data STL ABSTRACTION Provider, Abstract 03/05/2024 External Device Data STL ABSTRACTION Provider, Abstract 03/04/2024 External Device Data STL ABSTRACTION Provider, Abstract 02/27/2024 External Device Data STL ABSTRACTION Provider, Abstract from Last 3 Months Family History Medical [...] oz) 05/05/2024 1:49 P M CDT Height 170.2 cm (5' 7 ) 10/01/2023 1:25 PM CDT Body Mass Index 27.13 10/01/2023 1:25 PM CDT Plan of Treatment Upcoming Encounters Date Type Department Care Team (Late st Contact Info) Description 11/10/2024 10:00 AM CDT Office Visit [facility] Oncology and Hematology - [place] [address] [facility] [address] [place] [address] Hever Denson MD [address] [facility] [address] [place] [address] Health Maintenance Due Date Last Done Comments DTAP/TDAP/TD VACCINES (1 - Tdap) 12/04/1970 PNEUMOCOCCAL VACCINE 50+ YEARS (1 of 2 - PCV) 12/04/18 72 COLORECTAL SCREENING 12/04/1996 Colorectal Cancer Screening 12/04/1996 FIT-DNA Q 3 years 12/04/1996 FIT/FOBT Q 1 year 12/04/1996 Flex Sig/CT Colonography Q 5 years 12/04/1996 ZOSTER VACCINE (1 of 2) 12/04/2001 INFLUENZA VACCINE (#1) 2023 Medicare Advantage ([place]) Prev entative Visit/Annual Wellness Visit 02/13/2024 Lung Cancer Screening 02/23/2024 02/22/2023 RSV VACCINE (60+ or ) (1 - 1-dose 75+ series) 12/04/2026 Abdominal Aortic Aneurysm (AAA) Screening Completed 02/22/2023 Procedures Procedure Name Priority Date/Time Associated Diagnosis Comments CT CHEST W CONTRAST Routine 04/22/2024 8:59 AM CDT from Last 3 Months Results * CT CHEST W CONTRAST (04/22/2024 8:59 AM CDT) Anatomical Region Laterality Modality Chest Computed Tomogra phy Hever Denson MD CT ORDERABLES Final Result from Last 3 Months Insurance [facility] [id number] Member Subscriber Plan / Payer (Ef fective 2023-Present) Name:Bruce [place] Relation to Subscriber:Self Name:Bruce Montana Payer ID:[id number] (NAIC) Type:PPO Address: [place] [id number] Member Subscriber Plan / Payer (Ef fective 2023-Present) Name:Bruce Montana Relation to Subscriber:Self Name:Bruce Montana Payer ID:[id number] (NAIC) Type:PPO Address: [place] [phone] Care Teams Manager Adobe Relationship Specialty Start Date End Date Gisel Dumont MD [address] [place] [address] PCP - General Family Practice 09/19/23
--- OUTSIDE RECORDS SUMMARY | 2024-05-05 15:30 | XMS_ITS | Encounter Summary ---
Author Organization [facility] Address [address] [place] [address] Care Team Providers Care Tack Puller Machine Name Role Phone Zander Knox MD Primary Care Provider [phone] Gisel Dumont MD Primary Care Provider Reason for Visit * Reason Comments Operative Report (SCAN) [facility] REPORT/PROCEDURE Encounter Details Date Type Department Care Team ([facility] Contact Info) Description 01/29/2018 Scan HEALTH INFO SRVCS Scanned, Documents Operative Report (SCAN) ([facility] REPORT/PROCEDURE) Social History Tobacco [...] Sex Assigned at Male 03/27/2024 1:31 PM IN 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 Legal Sex Male 7:51 AM CDT Gender Identity Not on file Sexual Orientation Straight 08/24/2023 1: 05 PM CDT documented as of this encounter Plan of Treatment Not on file documented as of this encounter Visit Diagnoses Not on filedocumented in this encounter Additional Health Concerns Infection Onset Date Last Indicated Resolved Time COVID-19 Rule Out 03/27/2024 03/27/2024 03/27/2024 2:25 PM IN 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 documented as of this encounter Care Teams Tack Puller Machine Relationship Specialty Start Date End Date Zander Knox MD PCP - General EMERGENCY MEDICINE 01/15/18 10/13/20 Gisel Dumont MD [address] [place] [address] PCP - General FAMILY PRACTICE 11/03/20 documented as of this encounter
[2024-05-05 15:45] LABS: Alanine Aminotransferase 29 U/L (6-50); Albumin Level 4.3 g/dL (3.5-5.1); Alkaline Phosphatase 59 U/L (38-126); Anion Gap 9 mmol/L (4-12); Aspartate Amino Transferase 38 U/L (17-59); Bilirubin,Total 0.8 mg/dL (0.2-1.3); Blood Urea Nitrogen 13 mg/dL (9-20); Calcium 9.4 mg/dL (8.4-10.2); Carbon Dioxide 33 mmol/L (22-30); Chloride 94 mmol/L (98-107); Estimated Glomerular Filt Rate > 60; Glucose 172 mg/dL (65-110); Potassium 3.4 mmol/L (3.4-5.0); Sodium 136 mmol/L (137-145)
== END 2024-05-05 13:33 | disposition home or self-care (01) ==
LOC: ANHLAB 13:33
PROVIDERS: PCP Family Medicine; Visit Provider Internal Medicine Hematology & Oncology
DX: R91.8 Other nonspecific abnormal finding of lung field (principal)
CPT/HCPCS: 36415; 80047; 80053; 85025

== ENCOUNTER 2024-11-03 09:50 | Outpatient (CLI) | payer MEDICARE, SELFPAY ==
--- OUTSIDE RECORDS SUMMARY | 2024-01-12 04:00 | XMS_ITS ---
Author Organization [facility] Address [address] [place] [address] Care Team Providers Care Ladle Operator Name Role Phone Dr. Gisel Dumont Primary Care Provider [phone] Migration, Provider Unavailable Unavailable REASON FOR VISIT EMR-Deyiv Encounters Encounter Location Date Provider Diagnosis [facility] [address] [place] [address] 01/12/2024 Provider Migration Plan Of Treatment Medication [...] Capsule Oral; Duration: 90 03/21/2023 07/29/2023 ,discontinuer hattie:Re filled Claritin 10 MG Tablet 1 Oral [...] 07/02/2020 Rx Refill Request,discontinuere ason:Refilled *Reorder from [facility] for eRx and Interaction Alerts* Next Appt Details Provider Name:Dr. Gisel kraft, 11/28/2024 03:30:00 PM, [employer], [place], [address], [phone] Provider Name:Lashanda martinez, 06/01/2025 10:45:00 AM, [address], [place], [address], [phone] Progress Notes * Bruce CASIANO KDOB: [birth year] (73 yo M)Acc No.[id number]:01/12/2024 Patient: Bruce TERRY :1950 A ge:73 Y S ex:Male Phone: Address:[address] [place], [address] * Refills Stop Diclofenac Sodium Tablet Delayed [...]
--- OUTSIDE RECORDS SUMMARY | 2024-01-13 04:00 | XMS_ITS ---
Author Organization [facility] Address [address] [place] [address] Care Team Providers Care Warehouse Supervisor 3Rd Shift Name Role Phone Dr. Gisel Dumont Primary Care Provider [phone] Migration, Provider Unavailable Unavailable Allergies No Known [...] status: Encounters Encounter Location Date Provider Diagnosis [facility] [address] [place] [address] 01/13/2024 Provider Migration Plan Of Treatment Next Appt Details Provider Name:Dr. Gisel kraft, 11/28/2024 03:30:00 PM, [employer] [address], [place], [address], [phone] Provider Name:Lashanda martinez, 06/01/2025 10:45:00 AM, [employer] [address], [place], [address], [phone] Progress Notes * Bruce CASIANO KDOB: [birth year] (73 yo M)Acc No.[id number]:01/13/2024 Patient: Bruce TERRY :1950 A ge:73 Y S ex:Male Phone: Address:[address] [place] [address], [phone] Subjective: * Chief Complaints: * E MR-Deyvi * Surgical History: (21886) EXC TR-EXT MAL+YORDAN 0.6-1 CM ,notes : [...]
--- NOTE | ~2024-11-03 | CT_ITS ---
EXAMINATION:CT diagnostic chest w con DATE: 11/03/2024 10:14 INDICATION: Lung mass. TECHNIQUE: Computed tomography (CT) of the chest was performed with 75 mL Omnipaque 350 intravenous contrast. Automated exposure control and iterative reconstruction technique were employed. The dose-length product (DLP) was 377.85 mGy-cm. COMPARISON: Chest CT 04/22/2024 FINDINGS: There is mild emphysema. There is scarring at the lung apices. There is a 1.8 cm cavitary nodule in left upper lobe. There are tree-in-bud opacities in the left upper lobe and left lower lobe. There is a 3 mm nodule in left lower lobe. There is total collapse of right middle lobe. No pleural effusion. There is a 5 mm thyroid nodule, likely not clinically significant. The heart size is normal. There is lipomatous hypertrophy of the interatrial septum. There are coronary artery calcifications. No pericardial effusion. There are bridging endplate osteophytes at multiple levels in the spine, consistent with diffuse idiopathic skeletal hyperostosis (DISH). IMPRESSION: 1. New 1.8 cm cavitary nodule in left lung upper lobe, which may be infection or primary bronchogenic carcinoma. Noncontrast chest CT is recommended in 4-6 weeks. 2. Mild tree-in-bud opacities in left upper lobe and left lower lobe, consistent with mild pneumonia. 3. Mild emphysema. 4. 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 Reviewed, dictated and finalized at location E. IMPRESSION: 1. New 1.8 cm cavitary nodule in left lung upper lobe, which may be infection o r primary bronchogenic carcinoma. Noncontrast chest CT is recommended in 4-6 we eks. 2. Mild tree-in-bud opacities in left upper lobe and left lower lobe, consisten t with mild pneumonia. 3. Mild emphysema. 4. 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
[2024-11-03 10:10] LABS: Estimated Glomerular Filt Rate > 60
--- OUTSIDE RECORDS SUMMARY | 2024-11-03 10:54 | XMS_ITS | Clinical Summary ---
Author Organization [facility] Heather Johnson Address [address] [place] [address] Care Team Providers Care Logging Worker Name Role Phone Gisel Dumont MD Primary [...] Encounters Date Type Department Care Team Description 10/28/2024 External Device Data STL ABSTRACTION Provider, Abstract 09/30/2024 External Device Data STL ABSTRACTION Provider, Abstract 09/16/2024 External Device Data STL ABSTRACTION Provider, Abstract from Last 3 Months Family History Medical History Relation Name Comments Colon Cancer Brother 1 Heart Disease Brother 2 Heart Disease Father No Known Problems Mother Relation Name Status Comments Brother 1 Brother 2 Father Mother Alive Social History Tobacco Use Types Packs/Day Years Used Date Smoking Tobacco: Every Day Cigarettes 2 51.1 Started: 09/18/1973 Tobacco Cessation:Ready to Q uit: [...] P M CDT Height 170.2 cm (5' 7) 10/01/2023 1:25 PM CDT Body Mass Index 27.13 10/01/2023 1:25 PM CDT Plan of Treatment Upcoming Encounters Date Type Department Care Team (Late st Contact Info) Description 11/10/2024 10:00 AM CDT Office Visit [facility] On[facility] - [place] [address] [address] [facility] [address] [place] [address] Hever Denson MD [address] [facility] [address] [place] [address] Health Maintenance Due Date Last Done Comments DTAP/TDAP/TD VACCINES (1 - Tdap) 12/04/1970 PNEUMOCOCCAL VACCINE 50+ YEARS (1 of 2 - PCV) 12/04/18 72 COLORECTAL SCREENING 12/04/1996 Colorectal Cancer Screening 12/04/1996 FIT-DNA Q 3 years 12/04/1996 FIT/FOBT Q 1 year 12/04/1996 Flex Sig/CT Colonography Q 5 years 12/04/1996 ZOSTER VACCINE (1 of 2) 12/04/2001 Lung Cancer Screening 02/23/2024 02/22/2023 INFLUENZA VACCINE (#1) 2024 RSV VACCINE (60+ or ) (1 - 1-dose 75+ series) 12/04/2026 Abdominal Aortic Aneurysm (AAA) Screening Completed 02/22/2023 Insurance Care Teams Logging Worker Relationship Specialty Start Date End Date Gisel Dumont MD [address] [place] [address] PCP - General Family Practice 09/19/23
--- OUTSIDE RECORDS SUMMARY | 2024-11-03 10:54 | XMS_ITS | Patient Health Record ---
Author Organization [facility] Address [address] [place] [address] Care Team Providers Care Regional Operations Manager Name Role Phone Dr. Gisel Dumont Primary Care Provider [phone] Natanael Thakkar Unavailable [phone] Lashanda Gilliam Unavailable [phone] Gisel Aguirre Unavailable [phone] Migration, Provider Unavailable Unavailable Allergies No Known Allergies Results Component Value Reference Range Flag Notes Hemoglobin A1c {Glycosylated } Reviewed date:06/12/2024 06:54:04 AM Interpretation: Performing Lab: Notes/Report: Test Performed by: [address] [address] Chief Technologist: Bret Toro DO Hemoglobin A1c 6.1 <=6.4 % Hemoglobin A1C < 5.7% = Normal 5.7-6.4% = Increased risk for future diabetes >=6.5% = Diabetes eAvg Glucose 128 <=117 mg/dL H eAG Reference Range <117 mg/dL = Normal 117-137 mg/dL = Increased Risk For Future Diabetes >137 mg/dL = Diabetes CBC w Auto Diff Reviewed date:06/12/2024 06:54:04 AM Interpretation: Performing Lab: Notes/Report: Test Performed by: [address] [address] Chief Technologist: Bret Toro DO WBC 7.1 4.0-11.7 K/mcL RBC 4.76 4.28-5.56 x10*6/mcL Hgb 15.6 13.0-17.0 g/dL Hct 47.2 38.1-48.9 % MCV 99.2 83.4-98.1 fL H MCH 32.8 27.0-34.2 pg MCHC 33.0 31.8-35.3 g/dL RDW 15.0 12.0-16.4 % Platelets 258 149-393 K/mcL MPV 7.9 7.0-11.0 fL Neutro Auto 68.0 45.3-79.0 % Lymph Auto 20.8 11.8-45.9 % Andrew Auto 7.9 4.4-12.0 % Eosinophil Auto 2.3 0.0-6.3 % Basophil Auto 1.0 0.2-1.6 % Neutro Absolute 4.9 2.4-8.4 x10*3/mcL Lymph Absolute 1.5 0.8-3.7 x10*3/mcL Andrew Absolute 0.6 0.3-1.1 x10*3/mcL Eos Absolute 0.2 0.0-0.5 x10*3/mcL Baso Absolute 0.1 0.0-0.1 x10*3/mcL Comprehensive Metabolic Pane l Reviewed date:06/12/2024 06:54:04 AM Interpretation: Performing Lab: Notes/Report: Test Performed by: [place] [address] Chief Technologist: Bret Toro DO Glucose Lvl 112 74-109 mg/dL H ADA risk stratification for diabetes <100 mg/dL = Normal 100-125 mg/dL = Increased risk for future diabetes >=126 mg/dL = Diabetes, if on more than one testing occasion BUN 12 7-25 mg/dL Creatinine Lvl 0.89 0.70-1.30 mg/dL eGFR CKD-EPI >90 >=90 mL/min/1.73 m2 The CKD-EPI equation is validated in individuals 18 years of age and older. It is less accurate in patients with extremes of muscle mass, restriction of dietary protein, ingestion of creatine, extra-renal metabolism of creatinine, or treatment with medications that affect renal tubular creatinine secretion. GFR Categories in Chronic Kidney Disease (CKD) GFR GFR (mL/min/1.73 Category: square meters): Interpretation: G1 90 or greater Normal or high* G2 60-89 Mild decrease* G3a 45-59 Mild to moderate decrease G3b 30-44 Moderate to severe decrease G4 15-29 Severe decrease G5 14 or less Kidney failure *In the absence of evidence of kidney damage, neither GFR category G1 nor G2 fulfill the criteria for CKD (Kidney Int Suppl 2013;3:1-150) Calcium Lvl 9.3 8.6-10.3 mg/dL Sodium Lvl 143 136-145 mmol/L Potassium Lvl 4.3 3.5-5.1 mmol/L Chloride Lvl 105 98-107 mmol/L CO2 29 21-31 mmol/L Anion Gap 9.4 <=16.0 mmol/L Alk Phos 56 34-104 unit/L Bilirubin Total 0.6 0.3-1.0 mg/dL Albumin Lvl 4.5 3.5-5.2 g/dL Protein Total 6.9 6.4-8.9 g/dL Albumin/Globulin Ratio 1.9 1.1-2.5 ALT 24 7-52 unit/L AST 24 13-39 unit/L Lipid Panel {Chol, Trig, HDL , LDL} Reviewed date:06/12/2024 06:54:04 AM Interpretation: Performing Lab: Notes/Report: Test Performed by: [place] [address] Chief Technologist: Bret Toro DO Cholesterol Total 150 <=199 mg/dL Triglycerides 48 0-149 mg/dL Triglyceride Reference Ranges: <150 mg/dL Normal 150 - 199 mg/dL Borderline High 200 - 499 mg/dL High >=500 mg/dL Very High LDL 80 <=100 mg/dL LDL Optimal: <100 Near or above optimal: 100-129 Borderline high: 130-159 High: 160-189 Very high: >=190 Coronary heart disease risk factors should be considered when determining LDL goals. Please refer to ATPIII guidelines for further information. If LDL is not calculated, please call the lab to add on the direct LDL methodology, if desired. HDL 60 23-92 mg/dL Non HDL Cholesterol 90 <=130 mg/dL Chol/HDL 2 0-5 Coronary Risk 40 Coronary Risk Factor - Male Dangerous Risk: <7 % High Risk: 7-15 % Average Risk: 15-25 % Below Average Risk: 25-37 % Coronary Risk Factor - Female Dangerous Risk: <12 % High Risk: 12-18 % Average Risk: 18-27 % Below Average Risk: 27-40 % Magnesium Reviewed date:06/12/2024 06:54:04 AM Interpretation: Performing Lab: Notes/Report: Test Performed by: [place] [address] Chief Technologist: Bret Toro DO Magnesium Lvl 2.3 1.6-2.4 mg/dL Protein/Creatinine Ratio, Ur ine Reviewed date:06/12/2024 06:54:04 AM Interpretation: Performing Lab: Notes/Report: Test Performed by: [place] [address] Chief Technologist: Bret Toro DO Protein Ur 15.8 Ratio cannot be calculated if any result is less than the analyzer's reportable range. Creatinine Ur 100 71-151 mg/dL Prot Creat Ratio Ur 0.2 PSA Annual Screening Reviewed date:06/12/2024 06:54:04 AM Interpretation: Performing Lab: Notes/Report: Test Performed by: [place] [address] Chief Technologist: Bret Toro DO PSA Total 1.67 0.00-4.00 ng/mL Free T4 And TSH Reviewed date:06/12/2024 06:54:04 AM Interpretation: Performing Lab: Notes/Report: Test Performed by: [place] [address] Chief Technologist: Bret Toro DO T4 Free 0.88 0.60-1.70 ng/dL TSH 0.64 0.45-5.33 mcIU/mL Reason For Referral No Information Medications Medication SIG (Take, Route, Frequency, Duration) Notes Start Date End Date Status Flonase Allergy Relief 50 MCG/ACT Suspension 1 Nasal two times a day; Duration: 0 09/07/2020 Active Aspirin Adult Low Strength 81 MG Tablet Delayed Release 1 Oral every day; Duration: 0 09/07/2020 Active Escitalopram Oxalate 10 MG Tablet 1 tablet Orally Once a day; Duration: 90 days Active Diclofenac Sodium 75 MG Tablet Delayed Release 1 Oral two times a day; Duration: 30 Active Pravastatin Sodium 40 MG Tablet TAKE 1 TABLET(S) BY MOUTH EVERY DAY; Duration: 90 Active Lisinopril 40 MG Tablet 1 tablet Orally Once a day; Duration: 90 days Active Anoro Ellipta 62.5-25 MCG/ACT Aerosol Powder Breath Activated 1 Inhalation every day; Duration: 0 07/30/2023 Active Montelukast Sodium 10 MG Tablet TAKE 1 TABLET(S) BY MOUTH EVERY EVENING; Duration: 90 Active Combivent Respimat 20-100 MCG/ACT Aerosol Solution 1 Inhalation every 4-6 hours; Duration: 0 09/07/2020 Not-Taking busPIRone HCl 10 MG Tablet 1 tablet Orally 3 times a day; Duration: 30 days As needed Active Tamsulosin HCl 0.4 MG Capsule 2 capsule Orally Once a day; Duration: 90 days Active Tadalafil 20 MG Tablet 1 tablet as neede d Orally Once a day; Duration: 20 days Active Immunizations Vaccine Route Administration Date Status Comme nts Zoster Unknown 08/26/2018 Administered ,sourcename : Historical information -from public agency Source VFC Code: : Zoster Unknown 11/07/2018 Administered ,sourcename : Historical information -from public agency Source VFC Code: : Tdap Unknown 01/30/2011 Administered ,sourcename : Historical information -from public agency Source VFC Code: : Tdap IM Intramuscular 05/16/2023 Administered ,sourc ename : New immunization record ,immstatus : Complete RSV-MAb (Respiratory syncytial virus immune globulin) IM Intramuscular 05/16/2023 Administered ,sourcename : New immunization record ,immstatus : Complete Pneumococcal polysaccharide PPV23 Unknown 12/31/2013 Administered ,sourcename : Historical information -from public agency Source VFC Code: : Pneumococcal conjugate PCV 13 Unknown 12/28/2016 Administered ,sourcename : Historical information -from public agency Source VFC Code: : Pneumococcal 20 IM Intramuscular 05/29/2024 Administered Moderna Covid-19 Vaccine 1st dose Unknown 02/15/2020 Administered ,sourcename : Historical information -from public agency Source VFC Code: : Moderna Covid-19 Vaccine 1st dose Unknown 04/10/2020 Administered ,sourcename : Historical information -from public agency Source VFC Code: : Moderna Covid-19 Vaccine 1st dose Unknown 12/22/2020 Administered ,sourcename : Historical information -from public agency Source VFC Code: : MMR Unknown 12/31/2013 Administered ,sourcename : Historical information -from public agency Source VFC Code: : Influenza, seasonal, injectable, preservative free, 3 yrs and above Unknown 11/21/2019 Administered ,sourcename : Historical information -from public agency Source VFC Code: : Hep B, adult (2 dose schedule) Unknown 12/08/2014 Administered ,sourcename : Historical information -from public agency Source [facility] Code: : Social History Tobacco Use: Social History Observation Description Date Details (start date - stop date) Current Smoker NA - NA Social History Household: Social Info Question Answer Notes Household Marital status: Drug/Alcohol: Social Info Question Answer Notes AUDIT-C (Standard) Did you have a drink containing alcohol in the past year? Yes How often did you have a drink containing alcohol in the past year? 2 to 3 times a week (3 points) How many drinks did you have on a typical day when you were drinking in the past year? 1 or 2 drinks (0 point) How often did you have six or more drinks on one occasion in the past year? Never (0 point) Points 3 Interpretation Negative Tobacco Use: Social Info Question Answer Notes Tobacco Control (Standard) Tobacco use: Current smoker How often do you smoke cigarettes? 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 bony tumor vs spur. 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 Active confirmed Problem Hyperglycemia due to type 2 diabetes mellitus (130192616931298) Type 2 diabetes mellitus with hyperglycemia (E11.65) 023 Active confirmed Problem Type II diabetes mellitus without complication (890049915) Type 2 diabetes mellitus without complications (E11.9) Active confirmed Problem Hyperlipidemia (67387103) Hyperlipidemia, unspecified (E78.5) 022 Active confirmed Problem Tobacco user (415842268) Nicotine dependence, unspecified, uncomplicated (F17.200) Active confirmed Problem Major depression single episode, in partial remission (01365197) Major depressive disorder, single episode, in partial remission (F32.4) 023 Active confirmed Problem Generalized anxiety disorder (72373824) Generalized anxiety disorder (F41.1) 024 Active confirmed Problem Essential hypertension (36743584) Essential (primary) hypertension (I10) Active confirmed Problem Chronic obstructive pulmonary disease (90570895) Chronic obstructive pulmonary disease, unspecified (J44.9) Active confirmed Problem Disorder of salivary gland (21052167) Other diseases of salivary glands (K11.8) Active confirmed Problem Psoriasis (0042746) Psoriasis, unspecified (L40.9) Active confirmed Problem Nocturia (926108039) Nocturia (R35.1) Active confirmed Problem Solitary pulmonary nodule (776574540) Solitary pulmonary nodule (R91.1) Active confirmed Problem Lung field abnormal (388388260) Other nonspecific abnormal finding of lung field (R91.8) Active confirmed Problem Adult health examination (336965588) Encounter for general adult medical examination without abnormal findings (Z00.00) Active confirmed Problem Screening for malignant neoplasm of respiratory tract (557312296) Encounter for screening for malignant neoplasm of respiratory organs (Z12.2) Active confirmed Problem Screening for malignant neoplasm of prostate (808469093) Encounter for screening for malignant neoplasm of prostate (Z12.5) Active confirmed Problem Screening for cardiovascular system disease (373800102) Encounter for screening for cardiovascular disorders (Z13.6) 023 Active confirmed Problem Family history of malignant neoplasm of gastrointestinal tract (165871313) Family history of malignant neoplasm of digestive organs (Z80.0) 023 Active confirmed Problem Lower urinary tract symptoms due to benign prostatic hypertrophy (92087892979401) Benign prostatic hyperplasia with lower urinary tract symptoms (N40.1) Active confirmed Problem Lower urinary tract symptoms due to benign prostatic hypertrophy (95692762248328) Enlarged prostate with lower urinary tract symptoms (N40.1) 024 Active confirmed Problem Neuropathy due to type 2 diabetes mellitus (920512642827044) Type 2 diabetes, controlled, with neuropathy (E11.40) Active confirmed Problem Tobacco abuse (2859966862) Tobacco abuse (Z72.0) Active confirmed Problem Do not resuscitate (936681673) DNR (do not resuscitate) (Z66) Active confirmed Problem Single episode of major depression in full remission (90192936) Major depressive disorder with single episode, in full remission (F32.5) Active confirmed Vital Signs Heart Rate 94 /min 05/29/2024 Temperature 96.7 degrees Fahrenheit 05/29/2024 Blood pressure diastolic 68 mm Hg 05/29/2024 Oximetry 95 % 05/29/2024 Height-cm 162.56 cm 05/29/2024 Weight-kg 79.74 kg 05/29/2024 Height 64.00 in 05/29/2024 Blood pressure systolic 132 mm Hg 05/29/2024 Weight 175.8 lbs 05/29/2024 BMI 30.17 kg/m2 05/29/2024 Procedures Procedure Date Ordered Date Performed Result Body Sit e SPECIAL EYE EVALUATION 07/14/2024 07/14/2024 N/A Encounters Encounter Location Date Provider Diagnosis [address] [address] 03/11/2024 Gisel Aguirre Physical exam Z00.[address] [address] 04/04/2024 Natanael Thakkar Chronic obstructive pulmonary disease, unspecified J44.9 ; Nicotine dependence, unspecified, uncomplicated F17.200 and Essential (primary) hypertension I10 [address] [address] 05/29/2024 Dr. Gisel Dumont Encounter for genera adult medical examination without abnormal findings Z00.00 ; Chronic obstructive pulmonary disease, unspecified J44.9 ; Major depressive disorder with single episode, in full remission F32.5 ; Type 2 diabetes, controlled, with neuropathy E11.40 ; Benign prostatic hyperplasia with lower urinary tract symptoms N40.1 ; Nocturia R35.1 ; Tobacco abuse Z72.0 ; Encounter for immunization Z23 ; Actinic keratosis L57.0 ; Essential (primary) hypertension I10 ; DNR (do not resuscitate) Z66 and Hyperlipidemia, unspecified E78.[address] [address] 01/12/2024 Provider Migration [address] [address] 01/13/2024 Provider Migration [address] [place] [address] 03/05/2024 Dr. Gisel Dumont [facility] [address] [place] [address] 04/03/2024 Dr. Gisel Dumont [address] [address] 04/03/[address] [address] 06/12/2024 Dr. Gisel Dumont Assessments Encounter Date Diagnosis (ICD Code) Assessment Notes Treatment Notes Treatment Clinical Notes Section Notes 04/04/2024 Chronic obstructive pulmonary disease, unspecified (ICD-10 - J44.9) Continue symbicort, will send alternative inhaler once symbicort is out. Hold anoro ellipta while taking symbicort but may continue combivent PRN. Discussed smoking cessation. Finish steroid taper and azithromycin. 03/11/2024 Physical exam (ICD-10 - Z00.00) Hypertension- History of hypertension, currently managed with lisinopril 40 mg daily.High Cholesterol- History of high cholesterol, managed with pravastatin daily.COPD- History of COPD, managed with Ellipta inhaler, Flonase spray, and montelukast.Depres donald- History of depression, related to the passing of spouse five years ago. Managed with buspirone as needed and escitalopram daily.Prostate Health- Managed with tadalafil and tamsulosin (Flomax).Vaccinati ons- Tdap vaccination up-to-date as of May 2023.Contingency Plan- If the school requires additional documentation, Cristóbal can contact the office to have the necessary paperwork printed and provided. 05/29/2024 Chronic obstructive pulmonary disease, unspecified (ICD-10 - J44.9) continue f/u with Dr. Paige - Continue Anoro 05/29/2024 Encounter for general adult medical examination without abnormal findings (ICD-10 - Z00.00) AWV Instructions The patient's health risk assessment was reviewed during this visit. The patient's chart was reviewed and updated See scanned images from paperwork reviewed and completed today The following topics have been addressed/discusse d at today's visit: All recommended screening services (as applicable) including infectious diseases, osteoporosis, diabetes and/or diabetes complications, glaucoma, cognitive impairment, hearing impairment, alcohol misuse, cancer screening Fall risk assessment Alcohol misuse Counseling (if applicable) Tobacco Cessation Counseling (if applicable) Immunizations Vital Signs End of Life Care Patient was provided with a written copy of the care plan from today's visit to include topics of Fall prevention, Nutrition, Physical activity, Tobacco-use cessation, Social engagement, Weight loss, Cognition. PHQ-9 was administered and results discussed with patient. Feels well controlled on lexapro. 5 mins spent discussing from 133-138pm 04/04/2024 Nicotine dependence, unspecified, uncomplicated (ICD-10 - F17.200) May continue nicotine patches but recommend tapering use to stop nicotine. Quitting smoking will help prevent further progression of COPD. Discussed nicotine replacement and other options for smoking cessation. 04/04/2024 Essential (primary) hypertension (ICD-10 - I10) Continue chlorthalidone, BP normal today, continue lisinopril and to monitor at home. Stop chlorthalidone for any hypotension or dizziness. 05/29/2024 Major depressive disorder with single episode, in full remission (ICD-10 - F32.5) continue lexapro 05/29/2024 Type 2 diabetes, controlled, with neuropathy (ICD-10 - E11.40) Diabetes - Diabetes previously well-controlled. Diet controlled with no changes in habits. - Moderate reduction in vibration sensory suggests neuropathy. - Order blood and urine tests to check sugar levels. Patient to return for tests next week. -Last HBA1C was less than 7. 05/29/2024 Benign prostatic hyperplasia with lower urinary tract symptoms (ICD-10 - N40.1) Enlarged Prostate - Under the care of Dr. Vazquez for enlarged prostate. - Follow-up appointment with Dr. Gaytan next week. 05/29/2024 Nocturia (ICD-10 - R35.1) 05/29/2024 Tobacco abuse (ICD-10 - Z72.0) Smoking Cessation - Significant reduction in smoking from almost two packs to using nicotine pouches. - Continue using nicotine pouches to manage cravings. 3 mins spent discussing smoking cessation from 130 to 133 pm. Recommended continued efforts on reduction and cessation in smoking - continued use of nicotine losenges or pouches to help with cravings and reduce use. 05/29/2024 Encounter for immunization (ICD-10 - Z23) Pneumonia - Hospitalized for pneumonia in March. - Administer new pneumonia vaccine today. 05/29/2024 Actinic keratosis (ICD-10 - L57.0) - Presence of precancerous skin lesions. - Apply Vaseline and monitor for a few weeks. If lesions do not clear, return for freezing treatment. 05/29/2024 Essential (primary) hypertension (ICD-10 - I10) continue lisinopril- well controlled. 05/29/2024 DNR (do not resuscitate) (ICD-10 - Z66) DNR completed and signed - patient given copy and copy scanned into chart. 05/29/2024 Hyperlipidemia, unspecified (ICD-10 - E78.5) continue pravastatin Plan Of Treatment Next Appt Details Provider Name:Dr. Gisel kraft, 11/28/2024 03:30:00 PM, [facility], [place], [address], [phone] Provider Name:Lashanda martinez, 06/01/2025 10:45:00 AM, [employer], [place], [address], [phone] Insurance Providers Payer Name Payer Address Payer Phone Subscriber Number Group Number Insured Name Patient Relationship to Insured Coverage Start Date Coverage End Date [employer] [address] [address] [place] [address] [id number] [place] Bruce Self - patient is the insured 3 Medical (General) History Medical History History ICD Code Type 2 diabetes mellitus with hyperglyce magalis E11.65 Hyperlipidemia, unspecified E78.5 Nicotine dependence, unspecified, uncomp licated F17.200 Essential (primary) hypertension I10 Chronic obstructive pulmonary disease, u nspecified J44.9 Solitary pulmonary nodule R91.1 Enlarged prostate with lower urinary tra ct symptoms N40.1 Type 2 diabetes mellitus without complic ations E11.9 Family history of malignant neoplasm of digestive organs Z80.0 Encounter for screening for cardiovascul ar disorders Z13.6 Encounter for screening for malignant ne oplasm of prostate Z12.5 Encounter for screening for malignant ne oplasm of respiratory organs Z12.2 Encounter for general adult medical exam ination without abnormal findings Z00.00 Other nonspecific abnormal finding of kel ng field R91.8 Nocturia R35.1 Psoriasis, unspecified L40.9 Other diseases of salivary glands K11.8 Generalized anxiety disorder F41.1 Major depressive disorder, single episod e, in partial remission F32.4 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
== END 2024-11-03 09:51 | disposition home or self-care (01) ==
PROVIDERS: PCP Family Medicine; Visit Provider Internal Medicine Hematology & Oncology
DX: R91.8 Other nonspecific abnormal finding of lung field (principal)
CPT/HCPCS: 71260; Q9967

== ENCOUNTER 2024-12-16 09:56 | Outpatient (CLI) | payer MEDICARE, SELFPAY ==
--- OUTSIDE RECORDS SUMMARY | 2023-07-30 08:30 | XMS_ITS ---
Author Organization [facility] Address [address] [place] [address] Care Team Providers Care [employer] Humanities Teacher Name Role Phone Dr. Gisel Dumont Primary Care Provider [phone] Results Component Value Reference Range Notes CBC w/ Diff Reviewed date:07/31/2023 12:00:00 AM Interpretation: Performing Lab: Notes/Report: Baso Absolute 0.1 x10*3/mcL Basophil Auto 0.9 % Eos Absolute 0.2 x10*3/mcL Eosinophil Auto 1.9 % Hct 47.7 % Hgb 16.1 g/dL Lymph Absolute 2.3 x10*3/mcL Lymph Auto 25.4 % MCH 33.6 pg MCHC 33.9 g/dL MCV 99.4 fL [place] Absolute 0.7 x10*3/mcL [place] Auto 7.7 % MPV 8.5 fL Neutro Absolute 5.7 x10*3/mcL Neutro Auto 64.1 % Platelets 240 K/mcL RBC 4.80 x10*6/mcL RDW 13.5 % WBC 8.9 K/mcL Comprehensive Metabolic Pane l Reviewed date:07/31/2023 12:00:00 AM Interpretation: Performing Lab: Notes/Report: Albumin Lvl 4.4 g/dL Albumin/Globulin Ratio 1.9 Alk Phos 61 unit/L ALT 34 unit/L ANION GAP 7.0 mmol/L AST 25 unit/L Bilirubin Total 0.8 mg/dL BUN 12 mg/dL Calcium Lvl 9.7 mg/dL Chloride Lvl 104 mmol/L CO2 29 mmol/L Creatinine Lvl 0.98 mg/dL eGFR CKD-EPI 82 mL/min/1.73 m2 Glucose Lvl 102 mg/dL Potassium Lvl 4.8 mmol/L Protein Total 6.7 g/dL Sodium Lvl 140 mmol/L Hemoglobin A1c {Glycosylated } Reviewed date:07/31/2023 12:00:00 AM Interpretation: Performing Lab: Notes/Report: eAvg Glucose 143 mg/dL Hemoglobin A1c 6.6 % Lipid Panel {Chol, Trig, HDL , LDL} Reviewed date:07/31/2023 12:00:00 AM Interpretation: Performing Lab: Notes/Report: Chol/HDL 3 Cholesterol Total 140 mg/dL Coronary Risk 37 % HDL 52 mg/dL LDL 74 mg/dL NON HDL CHOLESTEROL 88 mg/dL Triglycerides 70 mg/dL Microalbumin Quantitative wi th Creatinine Reviewed date:07/31/2023 12:00:00 AM Interpretation: Performing Lab: Notes/Report: Creatinine Ur 223 mg/dL Mcralb/Creat Ratio 11.8 mcg/mg Microalbumin Ur 26.2 mg/L PSA, Diagnostic Reviewed date:07/31/2023 12:00:00 AM Interpretation: Performing Lab: Notes/Report: PSA Total 1.33 ng/mL T4 Free Reviewed date:07/31/2023 12:00:00 AM Interpretation: Performing Lab: Notes/Report: T4 Free 0.91 ng/dL Thyroid Stimulating Hormone Reviewed date:07/31/2023 12:00:00 AM Interpretation: Performing Lab: Notes/Report: TSH 0.63 mcIU/mL REASON FOR VISIT 6 Month F/u Vital Signs Temperature 97.7 degrees Fahrenheit 07/30/19 24 Blood pressure systolic 156 mm Hg 07/30/19 24 Blood pressure diastolic 82 mm Hg 024 Heart Rate 92 /min 07/30/2023 Respiratory Rate 18 /min 07/30/2023 Weight 185.36 lbs 07/30/2023 Oximetry 96 % 07/30/2023 Weight-kg 84.08 kg 07/30/2023 Encounters Encounter Location Date Provider Diagnosis [address] [address] 07/30/2023 Dr. Gisel Dumont Type 2 diabetes mellitus with hyperglycemia E11.65 ; Psoriasis, unspecified L40.9 ; Tobacco use Z72.0 ; Enlarged prostate with lower urinary tract symptoms N40.1 ; Essential (primary) hypertension I10 ; Nocturia R35.1 ; Type 2 diabetes mellitus with unspecified complications E11.8 ; Neoplasm of uncertain behavior of skin D48.5 and Chronic obstructive pulmonary disease, unspecified J44.9 Assessments Encounter Date Diagnosis (ICD Code) Assessment Notes Treatment Notes Treatment Clinical Notes Section Notes 07/30/2023 Type 2 diabetes mellitus with hyperglycemia (ICD-10 - E11.65) 07/30/2023 Psoriasis, unspecified (ICD-10 - L40.9) 07/30/2023 Tobacco use (ICD-10 - Z72.0) 07/30/2023 Enlarged prostate with lower urinary tract symptoms (ICD-10 - N40.1) 07/30/2023 Essential (primary) hypertension (ICD-10 - I10) 07/30/2023 Nocturia (ICD-10 - R35.1) 07/30/2023 Type 2 diabetes mellitus with unspecified complications (ICD-10 - E11.8) 07/30/2023 Neoplasm of uncertain behavior of skin (ICD-10 - D48.5) 07/30/2023 Chronic obstructive pulmonary disease, unspecified (ICD-10 - J44.9) Plan Of Treatment Next Appt Details Provider Name:Dr. Gisel kraft, 03/09/2025 01:00:00 PM, [facility] [address], [place], [address], [phone] Provider Name:Lashanda martinez, 06/01/2025 10:45:00 AM, [facility] [address], [place], [address], [phone] Provider Name:Dr. Gisel kraft, 11/23/2025 10:00:00 AM, [facility] [address], [place], [address], [phone] Progress Notes * Bruce CASIANO KDOB: [birth year] (74 yo M)Acc No.[id number]:07/30/2023 Patient: Jenny benavidesBruce Yareli Provider: Yareli Dumont MD :1950 A ge:72 Y S ex:Male Date:07/30/2023 Phone: Address:[address] [place], [place] [id number] Subjective: * Chief Complaints: * 6 Month F/u Objective: * Vitals: B P: 156/82 mm Hg, HR: 92 /min, RR: 18 /min, Temp: 97.7 F, Oxygen sat %: 96 %, Wt: 185.36 lbs, Wt-k.08 kg. Past Vitals:* 06/20/2022 BP: 138/80 mm Hg, HR: 69 /mi n, Oxygen sat %: 96 %, Wt: 187.37 lbs, Wt-k.99 kg * 11/04/2021 BP: 140/86 mm Hg, HR: 90 /mi n, Wt: 181.00 lbs, Wt-k.10 kg Assessment: * Assessment: 1. N eoplasm of uncertain behavior of skin - D48.5 2 . T ype 2 diabetes mellitus with hyperglycemia - E11.65 S pecify :Src Diagnosis Name: Diabetes mellitus with hyperglycemia 3 . T ype 2 diabetes mellitus with unspecified complications - E11.8 & #160; S pecify :Src Diagnosis Name: Type 2 diabetes with complication 4 . E ssential (primary) hypertension - I10 5 . C hronic obstructive pulmonary disease, unspecified - J44.9 S pecify :Src Diagnosis Name: COPD (chronic obstructive pulmonary disease) 6 . P soriasis, unspecified - L40.9 S pecify :Src Diagnosis Name: Psoriasis 7 . N octuria - R35.1 8 . T obacco use - Z72.0 ?9. E nlarged prostate with lower urinary tract symptoms - N40.1 S pecify :Src Diagnosis Name: BPH associated with nocturia Plan: * Labs: * L ab: PSA, Diagnostic Value Reference Range P SA Total 1.33 ng/mL ?Lab: CBC w/ Diff* Value Reference Range B aso Absolute 0.1 x10*3/mcL * B asophil Auto 0.9 % * E os Absolute 0.2 x10*3/mcL * E osinophil Auto 1.9 % * H ct 47.7 % * H gb 16.1 g/dL * L ymph Absolute 2.3 x10*3/mcL * L ymph Auto 25.4 % * M CH 33.6 pg * M CHC 33.9 g/dL * M CV 99.4 fL * M papo Absolute 0.7 x10*3/mcL * M papo Auto 7.7 % * M PV 8.5 fL * N eutro Absolute 5.7 x10*3/mcL * N eutro Auto 64.1 % * P latelets 240 K/mcL * R BC 4.80 x10*6/mcL * R DW 13.5 % * W BC 8.9 K/mcL ?Lab: T4 Free* Value Reference Range T 4 Free 0.91 ng/dL ?Lab: Microalbumin Quantitative with Creatinine* Value Reference Range C reatinine Ur 223 mg/dL * M cralb/Creat Ratio 11.8 mcg/mg * M icroalbumin Ur 26.2 mg/L * (07/30/2023 08:45 PM) Microa lbumin Quantitative with Creatinine , M icroalbumin Ur: _ R atio cannot be calculated if any result is less than the analyzer's reportable r suraj. _ ?Lab: Lipid Panel {Chol, Trig, HDL, LDL}* Value Reference Range C hol/HDL 3 * C holesterol Total 140 mg/dL * C oronary Risk 37 % * H DL 52 mg/dL * L DL 74 mg/dL * N ON HDL CHOLESTEROL 88 mg/dL * T riglycerides 70 mg/dL * Triglycerides: _ T riglyceride Reference Ranges: < 150 mg/dL Normal 1 50 - 199 mg/dL Borderline High 2 00 - 499 mg/dL High > =500 mg/dL Very High _ Coronary Risk: _ C oronary Risk Factor - Male D angerous Risk: <7 % H igh Risk: 7-15 % A verage Risk: 15-25 % B elow Average Risk: 25-37 % _ C oronary Risk Factor - Female D angerous Risk: <12 % H igh Risk: 12-18 % A verage Risk: 18-27 % B elow Average Risk: 27-40 % _ LDL: _ L DL O ptimal: <100 N ear or above optimal: 100-129 B orderline high: 130-159 H igh: 160-189 V dimple high: >=190 _ C oronary heart disease risk factors should be considered w hen determining LDL goals. Please refer to A TPIII guidelines for further information. _ I f LDL is not calculated, please call the lab to add on the direct LDL m ethodology, if desired. _ ?Lab: Hemoglobin A1c {Glycosylated}* Value Reference Range e Avg Glucose 143 mg/dL * H emoglobin A1c 6.6 % * Hemoglobin A1c: _ H emoglobin A1C < 5.7% = Normal 5 .7-6.4% = Increased risk for future diabetes > =6.5% = Diabetes _ eAvg Glucose: _ e AG Reference Range < 117 mg/dL = Normal 1 17-137 mg/dL = Increased Risk For Future Diabetes > 137 mg/dL = Diabetes _ T est Performed by: [facility] [address], [address] [place] [address] P deyvi : ?Lab: Thyroid Stimulating Hormone* Value Reference Range T SH 0.63 mcIU/mL ?Lab: Comprehensive Metabolic Panel* Value Reference Range A lbumin Lvl 4.4 g/dL * A lbumin/Globulin Ratio 1.9 * A lk Phos 61 unit/L * A LT 34 unit/L * A NION GAP 7.0 mmol/L * A ST 25 unit/L * B ilirubin Total 0.8 mg/dL * B UN 12 mg/dL * C alcium Lvl 9.7 mg/dL * C hloride Lvl 104 mmol/L * C O2 29 mmol/L * C reatinine Lvl 0.98 mg/dL * e GFR CKD-EPI 82 mL/min/1.73 m2 * G lucose Lvl 102 mg/dL * P otassium Lvl 4.8 mmol/L * P rotein Total 6.7 g/dL * S odium Lvl 140 mmol/L * Glucose Lvl: _ A DA risk stratification for diabetes < 100 mg/dL = Normal 1 00-125 mg/dL = Increased risk for future diabetes > =126 mg/dL = Diabetes, if on more than one testing occasion _ eGFR CKD-EPI: _ T he CKD-EPI equation is validated in individuals 18 years of age and older. It i s less accurate in patients with extremes of muscle mass, restriction of d ietary protein, ingestion of creatine, extra-renal metabolism of creatinine, or t reatment with medications that affect renal tubular creatinine secretion. _ G FR Categories in Chronic Kidney Disease (CKD) _ G FR GFR (mL/min/1.73 C ategory: square meters): Interpretation: _ G 1 90 or greater Normal or high* G 2 60-89 Mild decrease* G 3a 45-59 Mild to moderate decrease G 3b 30-44 Moderate to severe decrease G 4 15-29 Severe decrease G 5 14 or less Kidney failure _ _ * In the absence of evidence of kidney damage, neither GFR c ategory G1 nor G2 fulfill the criteria for CKD (Kidney Int Suppl 2013;3:1-150) _ * Electronic signature of Dr. Gisel Dumont on 12/16/2024 at 11:22 AM SNUFF GRINDER AND SCREENER Sign off status: Pending * Provider: Yareli Dumont MD Date: 0 07/30/2023 Generated for Jayla murdock/Myesha/Saravananitting on: 1 02/16/2024 11:22 AM SNUFF GRINDER AND SCREENER
--- OUTSIDE RECORDS SUMMARY | 2023-08-23 03:00 | XMS_ITS ---
Author Organization [facility] Address [address] [place] [address] [place] [address] Care Team Providers Care Director Of Casework Name Role Phone Dr. Gisel Dumont Primary Care Provider [phone] Migration, Provider Unavailable Unavailable REASON FOR VISIT EMR-Deyvi Encounters Encounter Location Date Provider Diagnosis [facility] [address] [place] [address] 08/23/2023 Provider Migration Encounter for screening for malignant neoplasm of respiratory organs Z12.2 and Solitary pulmonary nodule R91.1 Assessments Encounter Date Diagnosis (ICD Code) Assessment Notes Treatment Notes Treatment Clinical Notes Section Notes 08/23/2023 Encounter for screening for malignant neoplasm of respiratory organs (ICD-10 - Z12.2) 08/23/2023 Solitary pulmonary nodule (ICD-10 - R91.1) Plan Of Treatment Next Appt Details Provider Name:Dr. Gisel kraft, 03/09/2025 01:00:00 PM, [employer] [place], [address], [phone] Provider Name:Lashanda martienz, 06/01/2025 10:45:00 AM, [employer] [place], [address], [phone] Provider Name:Dr. Gisel kraft, 11/23/2025 10:00:00 AM, [employer] [address] [facility], [place], [address], [phone] Progress Notes * CASIANOCruz PittsBruce KDOB: [birth year] (74 yo M)Acc No.[id number]:08/23/2023 Patient: Bruce Brown Provider: Mukul call Migration :1950 A ge:72 Y S ex:Male Date:08/23/2023 Phone: Address:[facility] [address] [place], [place] Pcp:Dr. Gsiel Dumont Subjective: * Chief Complaints: * E MR-Deyvi Objective: Past Vitals:* 07/30/2023 BP: 156/82 mm Hg, HR: 92 /mi n, Oxygen sat %: 96 %, Wt: 185.36 lbs, Wt-k.08 kg * 06/20/2022 BP: 138/80 mm Hg, HR: 69 /mi n, Oxygen sat %: 96 %, Wt: 187.37 lbs, Wt-k.99 kg Assessment: * Assessment: 1. S olitary pulmonary nodule - R91.1 S pecify :Src Diagnosis Name: Lesion of lung 2 . E ncounter for screening for malignant neoplasm of respiratory organs - Z12.2 S pecify :Src Diagnosis Name: Screening for lung cancer * Electronic signature of Prov ider Migration on 12/16/2024 at 11:22 AM REAL ESTATE PROCESSOR Sign off status: Pending * Provider: Mukul call Migration Date: 0 08/23/2023 Generated for Jayla murdock/Myesha/Saravananitting on: 1 02/16/2024 11:22 AM REAL ESTATE PROCESSOR
--- OUTSIDE RECORDS SUMMARY | 2023-08-31 09:15 | XMS_ITS ---
Author Organization [facility] Address [address] [place] [address] Care Team Providers Care Conductor Yard Name Role Phone Dr. Gisel Dumont Primary Care Provider [phone] REASON FOR VISIT cryo (balance on account) Vital Signs Temperature 97.0 degrees Fahrenheit 08/31/19 24 Blood pressure systolic 157 mm Hg 08/31/19 24 Blood pressure diastolic 80 mm Hg 024 Heart Rate 112 /min 08/31/2023 Respiratory Rate 18 /min 08/31/2023 Weight 184.59 lbs 08/31/2023 Oximetry 94 % 08/31/2023 Weight-kg 83.73 kg 08/31/2023 Encounters Encounter Location Date Provider Diagnosis [address] [address] 08/31/2023 Dr. Gisel Dumont Actinic keratosis L57.0 Assessments Encounter Date Diagnosis (ICD Code) Assessment Notes Treatment Notes Treatment Clinical Notes Section Notes 08/31/2023 Actinic keratosis (ICD-10 - L57.0) Plan Of Treatment Next Appt Details Provider Name:Dr. Gisel kraft, 03/09/2025 01:00:00 PM, [address] [place] [address] [place], [address], [phone] Provider Name:Lashanda martinez, 06/01/2025 10:45:00 AM, [address] [place] [address] [place], [address], [phone] Provider Name:Dr. Gisel kraft, 11/23/2025 10:00:00 AM, [address] [place] [address] [place], [address], [phone] Progress Notes * Bruce CASIANO KDOB: [birth year] (74 yo M)Acc No.[id number]:08/31/2023 Progress Note Patient: Bruce Brown Provider: Yareli Dumont MD :1950 A ge:72 Y S ex:Male Date:08/31/2023 Phone: Address:[address] [place], [place] [id number] Subjective: * Chief Complaints: * C manoj (balance on account) Objective: * Vitals: B P: 157/80 mm Hg, HR: 112 /min, RR: 18 /min, Temp: 97.0 F, Oxygen sat %: 94 %, Wt: 184.59 lbs, Wt-k.73 kg. Past Vitals:* 07/30/2023 BP: 156/82 mm Hg, HR: 92 /mi n, Oxygen sat %: 96 %, Wt: 185.36 lbs, Wt-k.08 kg * 06/20/2022 BP: 138/80 mm Hg, HR: 69 /mi n, Oxygen sat %: 96 %, Wt: 187.37 lbs, Wt-k.99 kg Assessment: * Assessment: 1. A ctinic keratosis - L57.0 * Electronic signature of Dr. Gisel Dumont on 12/16/2024 at 11:22 AM QUARRY EQUIPMENT OPERATOR Sign off status: Pending * Provider: Yareli Dumont MD Date: 0 08/31/2023 Generated for Jayla murdock/Myesha/eTteosmitting on: 1 02/16/2024 11:22 AM QUARRY EQUIPMENT OPERATOR
--- OUTSIDE RECORDS SUMMARY | 2023-09-06 03:00 | XMS_ITS ---
Author Organization [facility] Address [address] [place] [address] Care Team Providers Care Blueprint Duplicator Name Role Phone Dr. Gisel Dumont Primary Care Provider [phone] Migration, Provider Unavailable Unavailable REASON FOR VISIT EMR-Deyvi Encounters Encounter Location Date Provider Diagnosis [facility] [address] [place] [address] 09/06/2023 Provider Migration Solitary pulmonary nodule R91.1 ; Other diseases of salivary glands K11.8 and Tobacco use Z72.0 Assessments Encounter Date Diagnosis (ICD Code) Assessment Notes Treatment Notes Treatment Clinical Notes Section Notes 09/06/2023 Solitary pulmonary nodule (ICD-10 - R91.1) 09/06/2023 Other diseases of salivary glands (ICD-10 - K11.8) 09/06/2023 Tobacco use (ICD-10 - Z72.0) Plan Of Treatment Next Appt Details Provider Name:Dr. Gisel kraft, 03/09/2025 01:00:00 PM, [facility] [place], [address], [phone] Provider Name:Lashanda martinez, 06/01/2025 10:45:00 AM, [address] [place] [address] [place], [address], [phone] Provider Name:Dr. Gisel kraft, 11/23/2025 10:00:00 AM, [address] [place] [address] [place], [address], [phone] Progress Notes * Bruce CASIANO KDOB: [birth year] (74 yo M)Acc No.[id number]:09/06/2023 Patient: Bruce Brown Provider: Mukul call Migration :1950 A ge:72 Y S ex:Male Date:09/06/2023 Phone: [facility] [facility] Pcp:Dr. Gisel Dumont Subjective: * Chief Complaints: * E MR-Deyvi Objective: Past Vitals:* 07/30/2023 BP: 156/82 mm Hg, HR: 92 /mi n, Oxygen sat %: 96 %, Wt: 185.36 lbs, Wt-k.08 kg * 06/20/2022 BP: 138/80 mm Hg, HR: 69 /mi n, Oxygen sat %: 96 %, Wt: 187.37 lbs, Wt-k.99 kg Assessment: * Assessment: 1. O ther diseases of salivary glands - K11.8 S pecify :Src Diagnosis Name: Parotid nodule 2 . S olitary pulmonary nodule - R91.1 S pecify :Src Diagnosis Name: Lesion of lung 3 . T obacco use - Z72.0 * Electronic signature of Prov ider Migration on 12/16/2024 at 11:22 AM BOILER WASHER Sign off status: Pending * Provider: Mukul call Migration Date: 0 09/06/2023 Generated for Jayla murdock/Myesha/Nikkie on: 02/16/2024 11:22 AM BOILER WASHER
--- OUTSIDE RECORDS SUMMARY | 2023-09-21 08:00 | XMS_ITS ---
Author Organization [facility] Address [address] [place] [address] Care Team Providers Care Marine Insurance Claim Examiner Name Role Phone Dr. Gisel Dumont Primary Care Provider [phone] Results Component Value Reference Range Notes Pathology Tissue Request Reviewed date:09/25/2023 12:00:00 AM Interpretation: Performing Lab: Notes/Report: Tissue Request See Below REASON FOR VISIT left leg biopsy Vital Signs Temperature 98.4 degrees Fahrenheit 09/21/19 24 Blood pressure systolic 130 mm Hg 09/21/19 24 Blood pressure diastolic 64 mm Hg 024 Heart Rate 96 /min 09/21/2023 Respiratory Rate 16 /min 09/21/2023 Encounters Encounter Location Date Provider Diagnosis [address] [address] 09/21/2023 Dr. 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 Gisel kraft, 03/09/2025 01:00:00 PM, [employer] [address], [place], [address], [phone] Provider Name:Lashanda martinez, 06/01/2025 10:45:00 AM, [employer] [address], [place], [address], [phone] Provider Name:Dr. Gisel kraft, 11/23/2025 10:00:00 AM, [employer] [address], [place], [address], [phone] Progress Notes * Bruce CASIANO KDOB: [birth year] (74 yo M)Acc No.[id number]:09/21/2023 Progress Note Patient: Bruce Brown Provider: Yareli Dumont MD :1950 A ge:72 Y S ex:Male Date:09/21/2023 Phone: Address:[address] [place] [address] [facility] Subjective: * Chief Complaints: * L eft leg biopsy Objective: * Vitals: B P: 130/64 mm Hg, HR: 96 /min, RR: 16 /min, Temp: 98.4 F. Past Vitals:* 07/30/2023 BP: 156/82 mm Hg, HR: 92 /mi n, Oxygen sat %: 96 %, Wt: 185.36 lbs, Wt-k.08 kg * 06/20/2022 BP: 138/80 mm Hg, HR: 69 /mi n, Oxygen sat %: 96 %, Wt: 187.37 lbs, Wt-k.99 kg Assessment: * Assessment: 1. 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 N eoplasm of uncertain behavior of skin - D48.5 3 . N icotine dependence, unspecified, uncomplicated - F17.200 S pecify :Src Diagnosis Name: Smoker 4 . G eneralized anxiety disorder - F41.1 S pecify :Src Diagnosis Name: (F41.1 - ) Generalized anxiety disorder 5 . S olitary pulmonary nodule - R91.1 S pecify :Src Diagnosis Name: Pulmonary nodule 6 . T obacco use - Z72.0 Plan: * Labs: * L ab: Pathology Tissue Request Value Reference Range T issue Request See Below * Tissue Request: _ _ T ISSUES 1 left lower leg _ C LINICAL HISTORY p unch biopsy of lesion from left lower leg _ N ature of Procedure Performed: punch biopsy P reoperative diagnosis: d48.5 P ostoperative diagnosis: same _ G CHUCHO DESCRIPTION T he specimen is labeled left lower leg. Received in formalin is a 0.2 x 0.2 c m messina skin punch, excised to a depth of 0.4 cm. The specimen is inked blue and s ubmitted en toto in cassette 1A. _ D ictated by: TIFFANIE 09/24/2023 4:30:05 PM CDT _ [place] chucho reviewed: 09/24/23 rkr D ictated by: HW _ F INAL DIAGNOSIS S kin lesion, left lower leg, punch biopsy: - Acral-type skin showing acanthosis, hypergranulosis and perifollicular chronic i nflammation, see comment. - No fungal organisms or granulomatous reaction noted. - No dysplasia or evidence of malignancy identified, in available sample m aterial. E lectronically signed 09/25/2023 A na Janine RODRIGUEZ T he findings can be seen with lichen simples chronicus/prurigo nodularis. C hronic perifolliculitis/perivascular inflammation noted, and the differential d iagnosis may include chronic folliculitis, as well. Clinical correlation is w arranted. _ [id number] _ T est Performed by: [facility] [address], [address] [place] [id number] P deyvi : * Electronic signature of Dr. Gisel Dumont on 12/16/2024 at 11:22 AM FIRST AID INSTRUCTOR Sign off status: Pending * Provider: Yareli Dumont MD Date: 0 09/21/2023 Generated for Jayla murdock/Myesha/eTransmitting on: 1 02/16/2024 11:22 AM FIRST AID INSTRUCTOR
--- OUTSIDE RECORDS SUMMARY | 2024-01-12 03:00 | XMS_ITS ---
Author Organization [facility] Address [address] [place] [address] Care Team Providers Care Loss Control Technician Name Role Phone Dr. Gisel Dumont Primary Care Provider [phone] Migration, Provider Unavailable Unavailable REASON FOR VISIT EMR-Deyvi Encounters Encounter Location Date Provider Diagnosis [facility] [address] [place] [address] 01/12/2024 Provider Migration Plan Of Treatment Medication Medication Name Sig Start Date Stop Date Notes Lisinopril 40 MG Tablet 1 Oral every day; Duration: 08/15/2023 11/12/2023 Cialis 20 MG Tablet 1 Oral as directed; Duration: 0 08/22/2021 08/22/2021 Rx Refill Request,discontinuere ason:Refilled busPIRone HCl 10 MG Tablet 1 Oral three times a day; Duration: 11/23/2023 01/01/2024 ,PRN Reason:for anxiety Pravastatin Sodium 40 MG Tablet 1 Oral every day; Duration: 06/04/2023 06/04/2023 Rx Refill Request,discontinuere ason:Refilled Wellbutrin SR 150 MG Tablet Extended Release 12 Hour Oral; Duration: 0 10/01/2020 06/19/2022 ,discontinuere ason:Di scontinued Tamsulosin HCl 0.4 MG Capsule Oral; Duration: 90 03/21/2023 07/29/2023 ,discontinuer hatite:Re filled Claritin 10 MG Tablet 1 Oral every day; Duration: 0 09/07/2020 06/19/2022 ,discontinuereason:D i scontinued Diclofenac Sodium 75 MG Tablet Delayed Release 1 Oral two times a day; Duration: 09/27/2023 09/27/2023 Rx Refill Request,discontinuere ason:Refilled Escitalopram Oxalate 10 MG Tablet 1 Oral every day; Duration: 06/04/2023 06/04/2023 Rx Refill Request,discontinuere ason:Refilled Lisinopril-hydroCHLORO thiazide 20-25 MG Tablet 1 Oral every day; Duration: 0 09/07/2020 10/31/2020 ,discontinuereason:R x Change Montelukast Sodium 10 MG Tablet 1 Oral every evening; Duration: 06/04/2023 06/04/2023 Rx Refill Request,discontinuere ason:Refilled Fluorouracil 0.5 % Cream External every day; Duration: 0 11/04/2021 06/19/2022 ,discontinuereason:D i scontinued HYDROcodone-Acetaminop hen 5-325 MG Tablet Oral; Duration: 08/04/2021 07/29/2023 ,discontinuereason:Di scontinued Trelegy Ellipta 200-62.5-25 MCG/ACT Aerosol Powder Breath Activated 1 Inhalation every day; Duration: 09/23/2021 10/22/2021 Tadalafil 20 MG Tablet 1 Oral as directe d; Duration: 04/03/2023 04/22/2023 Symbicort 160-4.5 MCG/ACT Aerosol 2 Inhalation two times a day; Duration: 06/20/2022 07/29/2023 ,discontinuereason:D i scontinued Chantix 1 MG Tablet 1 Oral as directed; Duration: 07/02/2020 07/02/2020 Rx Refill Request,discontinuere ason:Refilled *Reorder from [facility] for eRx and Interaction Alerts* Next Appt Details Provider Name:Dr. Gisel kraft, 03/09/2025 01:00:00 PM, [employer] [place], [address], [phone] Provider Name:Lashanda martinez, 06/01/2025 10:45:00 AM, [employer] [facility] [employer] [address], [place], [address], [phone] Provider Name:Dr. Gisel kraft, 11/23/2025 10:00:00 AM, [address] [place] [place], [address], [phone] Progress Notes * Bruce CASIANO KDOB: [birth year] (74 yo M)Acc No.[id number]:01/12/2024 Patient: Bruce TERRY :1950 A ge:73 Y S ex:Male Phone: Address:[address] [place] [address], [phone] * Refills Stop Diclofenac Sodium Tablet Delayed Release, 75 MG, Oral, 60, 1, two times a day, 30 Stop Escitalopram Oxalate Tablet, 10 MG, Oral, 1, every day, 0 Stop Trelegy Ellipta Aerosol Powder Breath Activated, 200-62.5-25 MCG/ACT, Inhalation, 30, 1, every day, 30 Stop HYDROcodone-Acetaminophen Tablet, 5-325 MG, Oral, 20, 5 Stop Montelukast Sodium Tablet, 10 MG, Oral, 90, 1, every evening, 90 Stop Pravastatin Sodium Tablet, 40 MG, Oral, 1, every day, 0 Stop Cialis Tablet, 20 MG, Oral, 20, 1, as directed, 0 Stop Escitalopram Oxalate Tablet, 10 MG, Oral, 90, 1, every day, 90 Stop Escitalopram Oxalate Tablet, 10 MG, Oral, 90, 1, every day, 90 Stop HYDROcodone-Acetaminophen Tablet, 5-325 MG, Oral, 20, 5 Stop Diclofenac Sodium Tablet Delayed Release, 75 MG, Oral, 60, 1, two times a day, 30 Stop Diclofenac Sodium Tablet Delayed Release, 75 MG, Oral, 60, 1, two times a day, 30 Stop Diclofenac Sodium Tablet Delayed Release, 75 MG, Oral, 60, 1, two times a day, 30 Stop Trelegy Ellipta Aerosol Powder Breath Activated, 200-62.5-25 MCG/ACT, Inhalation, 30, 1, every day, 30 Stop busPIRone HCl Tablet, 10 MG, Oral, 60, 1, three times a day, 30 Stop Escitalopram Oxalate Tablet, 10 MG, Oral, 90, 1, every day, 90 Stop HYDROcodone-Acetaminophen Tablet, 5-325 MG, Oral, 20, 5 Stop Lisinopril Tablet, 40 MG, Oral, 90, 1, every day, 90 Stop Pravastatin Sodium Tablet, 40 MG, Oral, 90, 1, every day, 90 Stop Pravastatin Sodium Tablet, 40 MG, Oral, 90, 1, every day, 90 Stop Pravastatin Sodium Tablet, 40 MG, Oral, 90, 1, every day, 90 Stop Escitalopram Oxalate Tablet, 10 MG, Oral, 90, 1, every day, 90 Stop HYDROcodone-Acetaminophen Tablet, 5-325 MG, Oral, 20, 5 Stop Montelukast Sodium Tablet, 10 MG, Oral, 90, 1, every evening, 90 Stop Montelukast Sodium Tablet, 10 MG, Oral, 90, 1, every evening, 90 Stop HYDROcodone-Acetaminophen Tablet, 5-325 MG, Oral, 20, 5 Stop Fluorouracil Cream, 0.5 %, External, 1, every day, 0 Stop HYDROcodone-Acetaminophen Tablet, 5-325 MG, Oral, 20, 5 Stop Lisinopril Tablet, 40 MG, Oral, 90, 1, every day, 90 Stop Tamsulosin HCl Capsule, 0.4 MG, Oral, 90, 90 Stop Tamsulosin HCl Capsule, 0.4 MG, Oral, 90, 90 Stop HYDROcodone-Acetaminophen Tablet, 5-325 MG, Oral, 20, 5 Stop HYDROcodone-Acetaminophen Tablet, 5-325 MG, Oral, 20, 5 Stop HYDROcodone-Acetaminophen Tablet, 5-325 MG, Oral, 30, 5 Stop Lisinopril Tablet, 40 MG, Oral, 30, 1, every day, 30 Stop Lisinopril Tablet, 40 MG, Oral, 30, 1, every day, 30 Stop Lisinopril Tablet, 40 MG, Oral, 30, 1, every day, 30 Stop Lisinopril Tablet, 40 MG, Oral, 30, 1, every day, 30 Stop Montelukast Sodium Tablet, 10 MG, Oral, 90, 1, every evening, 90 Stop Tamsulosin HCl Capsule, 0.4 MG, Oral, 2, every day, 0 Stop Claritin Tablet, 10 MG, Oral, 1, every day, 0 Stop Diclofenac Sodium Tablet Delayed Release, 75 MG, Oral, 60, 1, two times a day, 30 Stop Lisinopril Tablet, 40 MG, Oral, 90, 1, every day, 90 Stop Montelukast Sodium Tablet, 10 MG, Oral, 1, every day, 0 Stop Pravastatin Sodium Tablet, 40 MG, Oral, 90, 1, every day, 90 Stop Pravastatin Sodium Tablet, 40 MG, Oral, 90, 1, every day, 90 Stop Diclofenac Sodium Tablet Delayed Release, 75 MG, Oral, 60, 1, two times a day, 30 Stop HYDROcodone-Acetaminophen Tablet, 5-325 MG, Oral, 20, 5 Stop HYDROcodone-Acetaminophen Tablet, 5-325 MG, Oral, 20, 5 Stop HYDROcodone-Acetaminophen Tablet, 5-325 MG, Oral, 45, 8 Stop Lisinopril Tablet, 40 MG, Oral, 30, 1, every day, 30 Stop Lisinopril Tablet, 40 MG, Oral, 30, 1, every day, 30 Stop Lisinopril Tablet, 40 MG, Oral, 30, 1, every day, 30 Stop Lisinopril Tablet, 40 MG, Oral, 30, 1, every day, 30 Stop Lisinopril-hydroCHLOROthiazide Tablet, 20-25 MG, Oral, 1, every day, 0 Stop Diclofenac Sodium Tablet Delayed Release, 75 MG, Oral, 60, 1, two times a day, 30 Stop Diclofenac Sodium Tablet Delayed Release, 75 MG, Oral, 60, 1, two times a day, 30 Stop Symbicort Aerosol, 160-4.5 MCG/ACT, Inhalation, 1, 2, two times a day, 30 Stop busPIRone HCl Tablet, 10 MG, Oral, 60, 1, three times a day, 20 Stop Diclofenac Sodium Tablet Delayed Release, 75 MG, Oral, 60, 1, two times a day, 30 Stop Escitalopram Oxalate Tablet, 10 MG, Oral, 90, 1, every day, 90 Stop HYDROcodone-Acetaminophen Tablet, 5-325 MG, Oral, 20, 5 Stop Montelukast Sodium Tablet, 10 MG, Oral, 90, 1, every evening, 90 Stop Symbicort Aerosol, 160-4.5 MCG/ACT, Inhalation, 10.2, 2, two times a day, 30 Stop Wellbutrin SR Tablet Extended Release 12 Hour, 150 MG, Oral, 180, 0 Stop Diclofenac Sodium Tablet Delayed Release, 75 MG, Oral, 60, 1, two times a day, 30 Stop Diclofenac Sodium Tablet Delayed Release, 75 MG, Oral, 60, 1, two times a day, 30 Stop Escitalopram Oxalate Tablet, 10 MG, Oral, 90, 1, every day, 90 Stop Lisinopril Tablet, 40 MG, Oral, 30, 1, every day, 30 Stop Montelukast Sodium Tablet, 10 MG, Oral, 90, 1, every evening, 90 Stop Tamsulosin HCl Capsule, 0.4 MG, Oral, 90, 90 Stop Diclofenac Sodium Tablet Delayed Release, 75 MG, Oral, 60, 1, two times a day, 30 Stop Lisinopril-hydroCHLOROthiazide Tablet, 20-25 MG, Oral, 30, 1, every day, 30 Stop Pravastatin Sodium Tablet, 40 MG, Oral, 90, 1, every day, 90 Stop Tadalafil Tablet, 20 MG, Oral, 20, 1, as directed, 20 Stop Tamsulosin HCl Capsule, 0.4 MG, Oral, 90, 90 Stop Chantix Tablet, 1 MG, Oral, 30, 1, as directed, 0 Stop Cialis Tablet, 20 MG, Oral, 0 Stop Diclofenac Sodium Tablet Delayed Release, 75 MG, Oral, 60, 1, two times a day, 30 Stop Diclofenac Sodium Tablet Delayed Release, 75 MG, Oral, 60, 1, two times a day, 30 Stop HYDROcodone-Acetaminophen Tablet, 5-325 MG, Oral, 20, 1, Q6H, 0 Stop Lisinopril Tablet, 40 MG, Oral, 90, 1, every day, 90 Stop Tamsulosin HCl Capsule, 0.4 MG, Oral, 90, 90 Stop Tamsulosin HCl Capsule, 0.4 MG, Oral, 90, 90 Subjective: * Chief Complaints: * E MR-Deyvi Objective: Past Vitals:* 07/30/2023 BP: 156/82 mm Hg, HR: 92 /mi n, Oxygen sat %: 96 %, Wt: 185.36 lbs, Wt-k.08 kg * 06/20/2022 BP: 138/80 mm Hg, HR: 69 /mi n, Oxygen sat %: 96 %, Wt: 187.37 lbs, Wt-k.99 kg * * Date:
--- OUTSIDE RECORDS SUMMARY | 2024-01-13 03:00 | XMS_ITS ---
Author Organization [facility] Address [address] [place] [address] Care Team Providers Care Production Solderer Name Role Phone Dr. Gisel Dumont Primary Care Provider [phone] Migration, Provider Unavailable Unavailable Allergies No Known Allergies REASON FOR VISIT EMR-Deyvi Medications Medication SIG (Take, Route, Frequency, Duration) Notes Start Date End Date Status Montelukast Sodium 10 MG Tablet 1 Oral every evening; Duration: 12/03/2023 05/30/2024 Active Lisinopril 40 MG Tablet 1 Oral every day ; Duration: 11/20/2023 02/17/2024 Active Combivent Respimat 20-100 MCG/ACT Aerosol Solution 1 Inhalation every 4-6 hours; Duration: 0 09/07/2020 Active Anoro Ellipta 62.5-25 MCG/ACT Aerosol Powder Breath Activated 1 Inhalation every day; Duration: 0 07/30/2023 Active Pravastatin Sodium 40 MG Tablet 1 Oral every day; Duration: 12/10/2023 06/06/2024 Active Escitalopram Oxalate 10 MG Tablet 1 Oral every day; Duration: 12/17/2023 06/13/2024 Active Flonase Allergy Relief 50 MCG/ACT Suspension 1 Nasal two times a day; Duration: 0 09/07/2020 Active Aspirin Adult Low Strength 81 MG Tablet Delayed Release 1 Oral every day; Duration: 0 09/07/2020 Active Tamsulosin HCl 0.4 MG Capsule 2 Oral every day; Duration: 07/30/2023 01/25/2024 Active Diclofenac Sodium 75 MG Tablet Delayed Release 1 Oral two times a day; Duration: 30 11/14/2023 02/11/2024 Active Social History Social History Additional Details Category Social Info Options Details Migrated Social History Migrated Social History Alcohol history:Currently drinks alcohol ,notes : 2 beers /day, 7 days/week , Number of cigarettes/day:20 (One Pack) , Tobacco history:Current every day smoker , Marital status: Encounters Encounter Location Date Provider Diagnosis [facility] [address] [place] [address] 01/13/2024 Provider Migration Plan Of Treatment Next Appt Details Provider Name:Dr. Gisel kraft, 03/09/2025 01:00:00 PM, [employer] [address], [place], [address], [phone] Provider Name:Lashanda martinez, 06/01/2025 10:45:00 AM, [employer] [address], [place], [address], [phone] Provider Name:Dr. Gisel kraft, 11/23/2025 10:00:00 AM, [employer] [address], [place], [address], [phone] Progress Notes * Cruz CASIANOence KDOB: [birth year] (74 yo M)Acc No.[id number]:01/13/2024 Patient: Bruce TERRY :1950 A ge:73 Y S ex:Male Phone: Address:[address] [place] [address], [phone] Subjective: * Chief Complaints: * E MR-Deyvi * Surgical History: (49205) EXC TR-EXT MAL+YORDAN 0.6-1 CM ,notes : right shoulder - Melanoma * Family History: F ather: Cerebrovascular Accident, C oronary Artery Disease (CAD), H ypertension. B rother: Colon Cancer. * Social History: M igrated Social History: M igrated Social History: Alcohol history:Currently drinks alcohol ,notes : 2 beers /day, 7 days/week,Number of cigarettes/day:20 (One Pack),Tobacco history:Current every day smoker,Marital status:. * Medications: T akingDiclofenac Sodium 75 MG Tablet Delayed Release 1 Oral two times a day , stop date 02/11/2024Escitalopram Oxalate 10 MG Tablet 1 Oral every day , stop date 06/13/2024Flonase Allergy Relief 50 MCG/ACT Suspension 1 Nasal two times a day Montelukast Sodium 10 MG Tablet 1 Oral every evening , stop date 05/30/2024spirin Adult Low Strength 81 MG Tablet Delayed Release 1 Oral every day Anoro Ellipta 62.5-25 MCG/ACT Aerosol Powder Breath Activated 1 Inhalation every day Combivent Respimat 20-100 MCG/ACT Aerosol Solution 1 Inhalation every 4-6 hours Tamsulosin HCl 0.4 MG Capsule 2 Oral every day , stop date 01/25/2024Lisinopril 40 MG Tablet 1 Oral every day , stop date 02/17/2024Pravastatin Sodium 40 MG Tablet 1 Oral every day , stop date 06/06/2024Taking Diclofenac Sodium 75 MG Tablet Delayed Release 1 Oral two times a day , stop date 02/11/2024Taking Escitalopram Oxalate 10 MG Tablet 1 Oral every day , stop date 06/13/2024Taking Flonase Allergy Relief 50 MCG/ACT Suspension 1 Nasal two times a day Taking Montelukast Sodium 10 MG Tablet 1 Oral every evening , stop date 05/30/2024Taking Aspirin Adult Low Strength 81 MG Tablet Delayed Release 1 Oral every day Taking Anoro Ellipta 62.5-25 MCG/ACT Aerosol Powder Breath Activated 1 Inhalation every day Taking Combivent Respimat 20-100 MCG/ACT Aerosol Solution 1 Inhalation every 4-6 hours Taking Tamsulosin HCl 0.4 MG Capsule 2 Oral every day , stop date 01/25/2024Taking Lisinopril 40 MG Tablet 1 Oral every day , stop date 02/17/2024Taking Pravastatin Sodium 40 MG Tablet 1 Oral every day , stop date 06/06/2024 * Allergies: N .K.D.A. Objective: Past Vitals:* 07/30/2023 BP: 156/82 mm Hg, HR: 92 /mi n, Oxygen sat %: 96 %, Wt: 185.36 lbs, Wt-k.08 kg * 06/20/2022 BP: 138/80 mm Hg, HR: 69 /mi n, Oxygen sat %: 96 %, Wt: 187.37 lbs, Wt-k.99 kg * * Date:
--- NOTE | ~2024-12-16 | CT_ITS ---
Exam: CT chest with contrast Clinical History: [Lung mass ] Comparison: [ Chest CT studies from 11/03/2024, 04/22/2024 and 01/15/2024 Technique: Multiple axial CT images of the chest with IV contrast. Sagittal and coronal reformatted images were obtained. FINDINGS: Lungs and pleura: [ Tracheobronchial tree is patent.] No pneumothorax. No pleural effusion. There are a few subpleural small groundglass opacities in the left lower lobe. Stable biapical scarring. There is a 1.6 cm subpleural spiculated nodule in the left upper lobe posteriorly which no longer has a ca vitation. The finding is similar size as compared to study from 11/03/2024. Mild centrilobular and paraseptal emphysema in the upper lobes. Stable chronic partial collapse of the right middle lobe. Mediastinum and pulmonary charlene: [ No mass or adenopathy.] Axillary/intramammary and supraclavicular: [ No mass or adenopathy.] Heart and great vessels: [ Normal heart size.[ [ No pericardial effusion.] [ No aneurysm.] There are coronary artery calcifications. Chest Wall: [ Unremarkable.] Upper Abdomen: [ No significant findings.] Osseous structures: [ No acute fracture or destructive lesion.] [ Multilevel degenerative change in the visualized spine.] Additional findings: [ None of significance.] IMPRESSION: 1. There is a 1.6 cm subpleural spiculated nodule in the left upper lobe posteriorly which no longer has a cavitation. The finding is similar size as compared to study from 11/03/2024. A PET/CT and/or biopsy is recommended. 2. No other pulmonary nodules or masses identified. 3. There are a few small subpleural groundglass opacities in the left lower lobe similar to the prior study. Reviewed, dictated and finalized at [facility]. [facility] ADVISOR IMPRESSION: 1. There is a 1.6 cm subpleural spiculated nodule in the left upper lobe surveyor's assistant iorly which no longer has a cavitation. The finding is similar size as compared to study from 11/03/2024. A PET/CT and/or biopsy is recommended. 2. No other pulmonary nodules or masses identified. 3. There are a few small subpleural groundglass opacities in the left lower lob e similar to the prior study.
[2024-12-16 10:22] LABS: Estimated Glomerular Filt Rate > 60
--- OUTSIDE RECORDS SUMMARY | 2024-12-16 11:22 | XMS_ITS | Clinical Summary ---
Author Organization [facility] Heather Johnson Address [address] [place] [address] Care Team Providers Care Manager Training Name Role Phone Gisel Dumont MD Primary [...] Encounters Date Type Department Care Team Description 11/11/2024 Orders Only [facility] Mina [address] [place] [address] Hever Denson MD 11/10/2024 10:00 AM CDT Office Visit [facility] Mina [address] [place] [address] Hever Denson MD Lung mass (Primary Dx) 10/28/2024 External Device Data STL ABSTRACTION Provider, [...] Date Smoking Tobacco: Every Day Cigarettes 2 51.2 Started: 09/18/1973 Tobacco Cessation:Ready to Q uit: [...] Sign Reading Time Taken Comments Blood Pressure 175/85 11/10/2024 10:01 AM CDT Pulse 80 11/10/2024 9:54 AM CDT Temperature 36.5 C (97.7 F) 11/10/2024 9:54 AM CDT Respiratory Rate 16 11/10/2024 9:54 AM CDT Oxygen Saturation 95% 11/10/2024 9:54 AM CDT Inhaled Oxygen Concentration - - Weight 80.5 kg (177 lb 6.4 oz) 11/10/2024 9:54 A M CDT Height 170.2 cm (5' 7) 10/01/2023 1:25 PM CDT Body Mass Index 27.78 10/01/2023 1:25 PM CDT Plan of Treatment Upcoming Encounters Date Type Department Care Team (Late st Contact Info) Description 12/22/2024 4:30 PM MEDICAL RECEPTIONIST Telephone Check Up [facility] - Mina [address] [facility] [address] [place] [address] Hever Denson MD [address] [facility] [address] [place] [address] Health Maintenance Due Date Last [...] Diagnosis Comments CT CHEST W CONTRAST Routine 11/03/2024 8:04 AM CDT from Last 3 Months Results * CT CHEST W CONTRAST (11/03/2024 8:04 AM CDT) Anatomical Region Laterality Modality Chest Computed Tomogra phy Hever Denson MD CT ORDERABLES Final Result from Last 3 Months Insurance [facility] [id number] [facility] [id number] Care Teams Manager Training Relationship Specialty Start Date End Date Gisel Dumont MD [address] [place] [address] PCP - General Family Practice 09/19/23
--- OUTSIDE RECORDS SUMMARY | 2024-12-16 11:22 | XMS_ITS | Encounter Summary ---
Author Organization [facility] Address [address] [place] [address] Care Team Providers Care Litharge Supervisor Name Role Phone Zander Knox MD Primary Care Provider [phone]- [phone] Gisel Dumont MD Primary Care Provider Reason for Visit * Reason Comments Operative Report (SCAN) [facility] REPORT/PROCEDURE Encounter Details Date Type Department Care Team ([facility] Contact Info) Description 01/29/2018 Scan HEALTH INFO SRVCS Scanned, Documents Operative Report (SCAN) ([facility] REPORT/PROCEDURE) Social History Tobacco Use [...] Sex Assigned at Male 03/27/2024 1:31 PM 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 Legal Sex Male 7:51 AM CDT Gender Identity Not on file Sexual Orientation Straight 08/24/2023 1: 05 PM CDT documented as of this encounter Plan of Treatment Not on file documented as of this encounter Visit Diagnoses Not on filedocumented in this encounter Additional Health Concerns Infection Onset Date Last Indicated Resolved Time COVID-19 Rule Out 03/27/2024 03/27/2024 03/27/2024 2:25 PM 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 documented as of this encounter Care Teams Litharge Supervisor Relationship Specialty Start Date End Date Zander Knox MD PCP - General EMERGENCY MEDICINE 01/15/18 10/13/20 Gisel Dumont MD [address] [place] [address] PCP - General FAMILY PRACTICE 11/03/20 documented as of this encounter
--- OUTSIDE RECORDS SUMMARY | 2024-12-16 11:22 | XMS_ITS | Clinical Summary ---
Author Organization [facility] Address [address] [place] [address] Care Team Providers Care Taxi Proprietor Name Role Phone Guille Felton MD Primary Care Provider Allergies No [...] times daily. 10.2 g 3 03/31/2024 Active Active Problems Problem Noted Date Diagnosed Date CAP (community acquired pneumonia) 03/27/2024 Hx of colonic polyp 09/07/2022 Overview (09/07/2022): Added automatically from request for surgery [id number] Family hx of colon cancer 09/07/2022 Overview (09/07/2022): Added automatically from request for surgery [id number] Screening for colon cancer 09/07/2022 Overview (09/07/2022): Added automatically from request for surgery [id number] Hyponatremia 10/16/2020 Family History Medical History Relation Comments Colon [...] from your doctor or pharmacy? Rarely 03/27/2024 [facility] Utilities Answer Date Recorded In the past 12 months has e [employer], gas, oil, or water [employer] threatened to shut off services in your [...] No 03/27/2024 Social Connection and Isolation Panel Answer Date Recorded In a typical week, how many times do you talk on the phone with family, friends, or neighbors? Once a week 03/27/19 How often do you get togethe r with friends or relatives? Once a week 03/27/2024 How often do you attend chur ch or uatsdin services? 1 to 4 times per year 03/27/2024 Do you belong to any clubs o r organizations such as zoroastrian groups, unions, fraternal or athletic groups, or [...] and heating? Not hard at all 03/27/2024 [facility] [place] of Occupat ional Health - Occupational Stress [...] any time in the past 12 m [facility], were you homeless or living in a senior care (including now)? No 03/27/2024 Sex and Gender Information Value Date Recorded Sex Assigned at Male 03/27/2024 1:31 PM [employer] Legal Sex Male 7:51 AM CDT Gender Identity Not on file Sexual Orientation Straight 08/24/2023 1: 05 PM CDT Last Filed Vital Signs Vital Sign Reading Time Taken Comments Blood Pressure 160/80 03/31/2024 12:00 PM [employer] Pulse 78 03/31/2024 12:00 PM [employer] Temperature 36.3 C (97.3 F) 03/31/2024 12:00 PM [employer] Respiratory Rate 16 03/31/2024 12:0 0 PM [employer] Oxygen Saturation 95% 03/31/2024 12: 00 PM [employer] Inhaled Oxygen Concentration - - Weight 85.2 kg (187 lb 13.3 oz) 03/27/2024 1:37 PM [employer] Height 170.2 cm (5' 7) 03/27/2024 1:37 PM [employer] Body Mass Index 29.42 03/27/2024 1:37 PM [employer] Plan of Treatment Health Maintenance Due Date Last Done Comments DTaP, Tdap and Td Vaccines (1 - Tdap) 12/04/1970 RSV Immunization or 60+ Years (1 - Risk 60-74 years 1-dose series) 2011 Annual Medicare Wellness Visit 12/04/2016 Pneumococcal Vaccine: 50+ Years (2 of 2 - PPSV23, PCV20, or PCV21) 02/22/2017 12/28/2016 Lung Cancer Screening 08/20/2024 08/21/2023, 024 COVID-19 Vaccine ( season) 2024 04/10/2020, 03/13/2020 Influenza Adult (#1) 2024 11/21/2019, 12/08/2014, 12/02/2013, Additional history exists Colorectal Cancer Screening Colonoscopy (10 Years) 10/31/2032 10/31/2022 Zoster Vaccines Completed 11/07/2018, 08/26/2018 Hepatitis C Completed 10/18/2020, 03/07/2013 AAA SCREENING Completed 01/15/2024, 08/13, 08/21/2023, Additional history exists Hepatitis A Vaccines Aged Out No long er eligible based on patient's age to complete this topic Meningococcal B Vaccine Aged Out No l onger eligible based on patient's age to complete this topic Meningococcal Vaccine Aged Out No yunior barb eligible based on patient's age to complete this topic RSV Immunizations Under 20 Months Aged Out No longer eligible based on patient's age to complete this topic Procedures Procedure Name Priority Date/Time Associated Diagnosis Comments PET EYE TO THIGH [id number] STAT 09/04/2023 3:30 PM CDT Screening for lung cancer Lesion of lung CT CHEST WO CONT LOW DOSE Routine 08/21/2023 9:[address] lung screening Pulmonary nodule Tobacco use HEPATITIS PANEL,ACUTE Routine 10/18/2020 6:01 AM CDT from Last 3 Months or Most Recently Relevant to Health Maintenance Results * PET EYE TO THIGH [id number] (09/04/2023 3:30 PM CDT) Anatomical Region Laterality [...] pleomorphic adenoma or Warthin's tumor. Ordered By: GUILLE FELTON Interpreted By: Angeli Boothe MD, 09/05/2023 2:26 PM Narrative 09/05/2023 3:24 PM CDT EXAMINATION: TUMOR FDG-PET/CT IMAGING DATE OF STUDY: 09/04/2023 SCANNER: [facility] RADIOPHARMACEUTICAL: 9.9 mCi F-18 Fluorodeoxyglucose (FDG) i.v. [...] obtained. The study was interpreted on the [employer] workstation. The mean liver SUV (reported for supplier quality specialist purposes) is 3.5. The total scanned [...] morphologically similar to the prior CT from 2014 and is likely reactive. Increased FDG uptake [...] FDG-PET/CT IMAGING DATE OF STUDY: 09/04/2023 SCANNER: [facility] RADIOPHARMACEUTICAL: 9.9 mCi F-18 Fluorodeoxyglucose (FDG) i.v. Injectionsite: Right hand HISTORY: Atypical pulmonary cyst with asymmetric wall thickening of theleft lung apex seen on recent lung cancer screening CT which subsequentlyincreased in size on follow-up CT of the chest. The study is requestedfor diagnosis. Initial treatment strategy. TECHNIQUE: The patient's fasting blood glucose level, measured byglucometer before injection of FDG, was 87 mg/dL. KELVINGastroricky was notgiven orally. After intravenous administration of FDG, noncontrast CTimages were obtained for attenuation correction and for fusion withemission PET images to allow for anatomical localization of PET findings.Emission PET images were then obtained. The study was interpreted on [employer] workstation. The mean liver SUV (reported for [...] appears morphologically similar to the prior CT [id number] and is likely reactive. Increased FDG uptake [...] benign pleomorphic adenomaor Warthin's tumor. Ordered By: GUILLE FELTON Interpreted By: Angeli Boothe MD, 09/05/2023 2:26 PM us Guille Felton MD PET Final Result * CT [...] mucous plugging versus endoluminal lesion. Referred By: GUILLE FELTON Interpreted By: Juan Glover MD, 08/21/2023 [...] to mucous plugging versusendoluminal lesion. Referred By: GUILLE FELTON Interpreted By: Juan Glover MD, 08/21/2023 9:01 PM us Guille Felton MD CT Final Result * HEPATITIS PANEL,ACUTE (10/18/2020 6:01 AM CDT) HEPATITIS B SURFACE AG NON-REACT VANESA NON-REACT VANESA 10/18/2020 8:11 AM CDT [facility] Comment:HBsAg NOT DETECTED. HEP B CORE IGM NON-REACT VANESA NON-REACT VANESA 10/18/2020 8:11 AM CDT [facility] Comment: IgM ANTI HBc NOT DETECTED. DOES NOT EXCLUDE THE POSSIBILITY OF EXPOSURE TO OR INFECTION WITH HBV. NO RETEST REQUIRED. HIGH DOSES OF BIOTIN MAY INTERFERE WITH THIS TEST RESULT. CORRELATION TO CLINICAL HISTORY AND PRESENTATION RECOMMENDED. HAV IGM NON-REACT VANESA NON-REACT VANESA 10/18/2020 8:11 AM CDT [facility] Comment: IgM ANTI HAV NOT DETECTED. DOES NOT EXCLUDE THE POSSIBILITY OF EXPOSURE TO OR INFECTION WITH HAV. LEVELS OF IgM ANTI HAV MAY BE BELOW THE CUTOFF IN EARLY INFECTION. HEPATITIS C AB NON-REACT VANESA NON-REACT VANESA 10/18/2020 8:11 AM CDT [facility] Comment: ANTIBODIES TO HCV NOT DETECTED. DOES NOT EXCLUDE THE POSSIBILITY OF EXPOSURE TO HCV. 10/18/2020 6:01 AM CDT us Jameson Vanegas MD LABORATORY Final Result [facility] [address] [place] [address], [id number] from Last 3 Months or Most Recently Relevant to Health Maintenance Insurance Advance Directives Documents on File Type Date Recorded Patient Prep Room Supervisor Expl anation Advance Directives and Living Will [...] 12:12 PM 10/19/2020 8:59 PM Care Teams Taxi Proprietor Relationship Specialty Start Date End Date Guille Felton MD [address] [place] [address] PCP - General FAMILY PRACTICE 11/03/20
--- OUTSIDE RECORDS SUMMARY | 2024-12-16 11:23 | XMS_ITS | Patient Health Record ---
Author Organization [facility] Address [address] [place] [address] Care Team Providers Care Clothing Presser Name Role Phone Dr. Gisel Dumont Primary Care Provider [phone] Natanael Thakkar Unavailable [phone] Lashanda Gilliam Unavailable [phone] Gisel Aguirre Unavailable [phone] Migration, Provider Unavailable Unavailable Allergies No Known Allergies Results Component Value Reference Range Flag Notes Hemoglobin A1c {Glycosylated } Reviewed date:06/12/2024 06:54:04 AM Interpretation: Performing Lab: Notes/Report: Test Performed by: [address] [address] [employer] Specialist: Bret Toro DO Hemoglobin A1c 6.1 <=6.4 [...] Interpretation: Performing Lab: Notes/Report: Test Performed by: [address] [address] [employer] Specialist: Bret Toro DO WBC 7.1 4.0-11.7 K/mcL RBC 4.76 4.28-5.56 x10*6/mcL Hgb 15.6 13.0-17.0 g/dL Hct 47.2 38.1-48.9 % MCV 99.2 83.4-98.1 fL H MCH 32.8 27.0-34.2 pg MCHC 33.0 31.8-35.3 g/dL RDW 15.0 12.0-16.4 % Platelets 258 149-393 K/mcL MPV 7.9 7.0-11.0 fL Neutro Auto 68.0 45.3-79.0 % Lymph Auto 20.8 11.8-45.9 % Mobile Auto 7.9 4.4-12.0 % Eosinophil Auto 2.3 0.0-6.3 % Basophil Auto 1.0 0.2-1.6 % Neutro Absolute 4.9 2.4-8.4 x10*3/mcL Lymph Absolute 1.5 0.8-3.7 x10*3/mcL Mobile Absolute 0.6 0.3-1.1 x10*3/mcL Eos Absolute 0.2 0.0-0.5 x10*3/mcL Baso Absolute 0.1 0.0-0.1 x10*3/mcL Comprehensive Metabolic Pane l Reviewed date:06/12/2024 06:54:04 AM Interpretation: Performing Lab: Notes/Report: Test Performed by: [place] [address] [employer]ustainable [employer] Specialist: Bret Toro DO Glucose Lvl 112 74-109 [...] Lab: Notes/Report: Test Performed by: [place] [address] [employer] Specialist: Bret Toro DO Cholesterol Total 150 <=199 [...] Interpretation: Performing Lab: Notes/Report: Test Performed by: [place] [address] [employer] Specialist: Bret Toro DO Magnesium Lvl 2.3 1.6-2.4 mg/dL Protein/Creatinine Ratio, Ur ine Reviewed date:06/12/2024 06:54:04 AM Interpretation: Performing Lab: Notes/Report: Test Performed by: [place] [address] [employer] Specialist: Bret Toro DO Protein Ur 15.8 Ratio cannot be calculated if any result is less than the analyzer's reportable range. Creatinine Ur 100 71-151 mg/dL Prot Creat Ratio Ur 0.2 PSA Annual Screening Reviewed date:06/12/2024 06:54:04 AM Interpretation: Performing Lab: Notes/Report: Test Performed by: [place] [address] [employer] Specialist: Bret Toro DO PSA Total 1.67 0.00-4.00 ng/mL Free T4 And TSH Reviewed date:06/12/2024 06:54:04 AM Interpretation: Performing Lab: Notes/Report: Test Performed by: [place] [address] [employer] Specialist: Bret Toro DO T4 Free 0.88 0.60-1.70 ng/dL TSH 0.64 0.45-5.33 mcIU/mL Reason For Referral No Information Medications Medication SIG (Take, Route, Frequency, Duration) Notes Start Date End Date Status Pravastatin Sodium 40 MG Tablet TAKE 1 TABLET(S) BY MOUTH EVERY DAY; Duration: 90 Unknown Lisinopril 40 MG Tablet 1 tablet Orally Once a day; Duration: 90 days Unknown Escitalopram Oxalate 10 MG Tablet 1 tablet Orally Once a day; Duration: 90 days Unknown Aspirin Adult Low Strength 81 MG Tablet Delayed Release 1 Oral every day; Duration: 0 09/07/2020 Unknown Flonase Allergy Relief 50 MCG/ACT Suspension 1 Nasal two times a day; Duration: 0 09/07/2020 Unknown Combivent Respimat 20-100 MCG/ACT Aerosol Solution 1 Inhalation every 4-6 hours; Duration: 0 09/07/2020 Not-Taking Diclofenac Sodium 75 MG Tablet Delayed Release 1 Oral two times a day; Duration: 30 Unknown busPIRone HCl 10 MG Tablet 1 tablet Orally 3 times a day; Duration: 30 days As needed Unknown Montelukast Sodium 10 MG Tablet TAKE 1 TABLET(S) BY MOUTH EVERY EVENING; Duration: 90 Unknown Anoro Ellipta 62.5-25 MCG/ACT Aerosol Powder Breath Activated 1 Inhalation every day; Duration: 0 07/30/2023 Unknown Tadalafil 20 MG Tablet 1 tablet as neede d Orally Once a day; Duration: 20 days Unknown Tamsulosin HCl 0.4 MG Capsule 2 capsule Orally Once a day; Duration: 90 days Unknown Immunizations Vaccine Route Administration Date Status Comme [...] Historical information -from public agency Source 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 bony tumor vs spur. 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 Active confirmed Problem Hyperglycemia due to type 2 diabetes mellitus (665102231096342) Type 2 diabetes mellitus with hyperglycemia (E11.65) 023 Active confirmed Problem Type II diabetes mellitus without complication (553314702) Type 2 diabetes mellitus without complications (E11.9) Active confirmed Problem Hyperlipidemia (49980434) Hyperlipidemia, unspecified (E78.5) 022 Active confirmed Problem Tobacco user (051261083) Nicotine dependence, unspecified, uncomplicated (F17.200) 021 Active confirmed Problem Major depression single episode, in partial remission (25023529) Major depressive disorder, single episode, in partial remission (F32.4) 023 Active confirmed Problem Generalized anxiety disorder (16412487) Generalized anxiety disorder (F41.1) Active confirmed Problem Essential hypertension (73094889) Essential (primary) hypertension (I10) Active confirmed Problem Chronic obstructive pulmonary disease (45811105) Chronic obstructive pulmonary disease, unspecified (J44.9) Active confirmed Problem Disorder of salivary gland (93896677) Other diseases of salivary glands (K11.8) Active confirmed Problem Psoriasis (2287117) Psoriasis, unspecified (L40.9) Active confirmed Problem Nocturia (965019795) Nocturia (R35.1) Active confirmed Problem Solitary pulmonary nodule (305940133) Solitary pulmonary nodule (R91.1) Active confirmed Problem Lung field abnormal (643531829) Other nonspecific abnormal finding of lung field (R91.8) Active confirmed Problem Adult health examination (678046306) Encounter for general adult medical examination without abnormal findings (Z00.00) Active confirmed Problem Screening for malignant neoplasm of respiratory tract (041852917) Encounter for screening for malignant neoplasm of respiratory organs (Z12.2) Active confirmed Problem Screening for malignant neoplasm of prostate (841135252) Encounter for screening for malignant neoplasm of prostate (Z12.5) Active confirmed Problem Screening for cardiovascular system disease (763741872) Encounter for screening for cardiovascular disorders (Z13.6) 023 Active confirmed Problem Family history of malignant neoplasm of gastrointestinal tract (923068603) Family history of malignant neoplasm of digestive organs (Z80.0) 023 Active confirmed Problem Lower urinary tract symptoms due to benign prostatic hypertrophy (71450359118226) Benign prostatic hyperplasia with lower urinary tract symptoms (N40.1) Active confirmed Problem Lower urinary tract symptoms due to benign prostatic hypertrophy (69301767475202) Enlarged prostate with lower urinary tract symptoms (N40.1) Active confirmed Problem Neuropathy due to type 2 diabetes mellitus (661179826541980) Type 2 diabetes, controlled, with neuropathy (E11.40) Active confirmed Problem Tobacco abuse (3325734377) Tobacco abuse (Z72.0) Active confirmed Problem Do not resuscitate (604832392) DNR (do not resuscitate) (Z66) Active confirmed Problem Single episode of major depression in full remission (83239248) Major depressive disorder with single episode, in [...] N/A Encounters Encounter Location Date Provider Diagnosis [address] [address] 03/11/2024 Gisel Aguirre Physical exam Z00.[address] [address] 04/04/2024 [facility] Chronic obstructive pulmonary disease, unspecified J44.9 ; Nicotine dependence, unspecified, uncomplicated F17.200 and Essential (primary) hypertension I10 [address] [address] 05/29/2024 Dr. Gisel Dumont Encounter for [facility] adult medical examination without abnormal findings Z00.00 [...] not resuscitate) Z66 and Hyperlipidemia, unspecified E78.[address] [address] 01/12/2024 Provider Migration [address] [address] 01/13/[address] [address] 03/05/2024 Dr. Gisel Dumont [facility] [address] [place] [address] 04/03/2024 Dr. Gisel Dumont [facility] [address] [place] [address] [facility]/03[facility]20[facility] [address] [place] [address] 06/12/2024 Dr. Gisel Dumont Assessments Encounter Date Diagnosis (ICD Code) Assessment Notes Treatment Notes Treatment Clinical Notes Section Notes 04/04/2024 Nicotine dependence, unspecified, uncomplicated (ICD-10 - F17.200) May continue nicotine patches but recommend tapering use to stop nicotine. Quitting smoking will help prevent further progression of COPD. Discussed nicotine replacement and other options for smoking cessation. 04/04/2024 Chronic obstructive pulmonary disease, unspecified (ICD-10 [...] lexapro. 5 mins spent discussing from 133-138pm 05/29/2024 Major depressive disorder with single episode, in full remission (ICD-10 - F32.5) continue lexapro 04/04/2024 Essential (primary) hypertension (ICD-10 - I10) Continue chlorthalidone, BP normal today, continue lisinopril and to monitor at home. Stop chlorthalidone for any hypotension or dizziness. 05/29/2024 Type 2 diabetes, controlled, with neuropathy [...] Provider Name:Dr. Gisel kraft, 03/09/2025 01:00:00 PM, [email or web address], [place], [address], [phone] Provider Name:Lashanda martinez, 06/01/2025 10:45:00 AM, [email or web address], [place], [address], [phone] Provider Name:Dr. Gisel kraft, 11/23/2025 10:00:00 AM, [employer], [place], [address], [phone] Insurance Providers Payer Name Payer Address Payer Phone Subscriber Number Group Number Insured Name Patient Relationship to Insured Coverage Start Date Coverage End Date [employer] [address] [address] [place] [address] [id number] [place] Self - patient is the insured 3 [...]
== END 2024-12-16 09:57 | disposition home or self-care (01) ==
PROVIDERS: PCP Family Medicine; Visit Provider Internal Medicine Hematology & Oncology
DX: R91.8 Other nonspecific abnormal finding of lung field (principal); R91.1 Solitary pulmonary nodule
CPT/HCPCS: 71260; Q9967